=== PATIENT | male | born 2000 | race Caucasian/White ===

== ENCOUNTER → 2022-02-25 | Outpatient (REF) | payer SELFPAY ==
[2022-03-02 16:08] LABS: Endomysial Antibody IgA Negative (Negative)
[2022-03-03 09:26] LABS: Immunoglobulin A 128 mg/dL (90-386); t-Transglutaminase IgA <2 U/mL (0-3)
== END | disposition home or self-care (01) ==
LOC: LABSPEC 15:49
PROVIDERS: Referring Provider Nurse Practitioner Family; Visit Provider Nurse Practitioner Family
DX: R21 Rash and other nonspecific skin eruption (principal); R10.9 Unspecified abdominal pain
CPT/HCPCS: 82784; 83516; 86255

== ENCOUNTER → 2024-08-01 | Outpatient (CLI) | payer BC, SELFPAY ==
--- OUTSIDE RECORDS SUMMARY | 2024-08-01 12:39 | XMS RPT_ITS | CCD ---
Author Organization [facility] Care Team Providers Care Nuclear Medicine Chief Technologist Name Role Phone Unavailable Primary Care Provider Kyra Gama MD Primary Care Provider LINGANNA, SIVA W Referring Unavailable LINGANNA, SIVA W Referring Unavailable LINGANNA, SIVA W Referring Unavailable LINGANNA, SIVA W Referring Unavailable LINGANNA, SIVA W Referring Unavailable LINGANNA, SIVA W Referring Unavailable LEVI MILES Attending Unavailable KALKA, CODI Attending Unavailable KALKA, CODI Referring Unavailable LINGANNA, SIVA W Referring Unavailable DAVIDAND MARY Admitting Unavailable MARY NOEL Attending Unavailable KALKA, CODI Attending Unavailable MENDOZA, KYRA A Primary Care Unavailable LINGANNA, SIVA W Referring Unavailable MENDOZA, KYRA A Primary Care Unavailable LINGANNA, SIVA W Referring Unavailable MENDOZA, KYRA A Primary Care Unavailable SELF Referring Unavailable LINGANNA, SIVA W Attending Unavailable LINGANNA, SIVA W Referring Unavailable MENDOZA, KYRA A Primary Care Unavailable LINGANNA, SIVA W Attending Unavailable URI MOY Attending Unavailable KALKA, CODI SOL Referring Unavailable MENDOZA, KYRA A Primary Care Unavailable Allergies Allergy Classification Reported Allergen(s) Allergy Type Date of Onset Reaction(s) Facility (17 sources) cefdinir; Translations: [CEFDINIR] Drug Allergy 03-29-2021 Unknown, Anaphylaxis [facility] Medications Current Medications Medication Drug Class(es) Dates Sig (Normalized) Sig (Original) fluticasone propionate 0.05 mg/actuat metered dose nasal spray (15 sources) Corticosteroid Start: 04-18-2019 fluticasone (FLONASE) 50 mcg/actuation nasal spray 04/18/2019 Active iv contrast (will be provided with radiology test) (2 sources) Start: 07-13-2024 End: 07-14-2024 iv contrast (will be provided with radiology test) Indications: PSC (primary sclerosing cholangitis) MRI PANC/EPIFANIO Inject, intravenously, once for 1 dose. No IV access, insert saline lock prior to the beginning of sedation, infusion, injection of imaging exam. Discontinue saline lock post exam. If Pt. has a central line or IVAD, may access for administration according to line specific nursing protocol. Once exam is complete flush line and de-access according to line specific nursing protocol in the MR contrast administration guidelines link. 1 Each 07/13/2024 07/14/2024 Active Start: 11-18-2023 End: 11-19-2023 iv contrast (will be provide d with radiology test) Indications: Abnormal results of liver function studies MRI PANC/EPIFANIO Inject, intravenously, once for 1 dose. No IV access, insert saline lock prior to the beginning of sedation, infusion, injection of imaging exam. Discontinue saline lock post exam. If Pt. has a central line or IVAD, may access for administration according to line specific nursing protocol. Once exam is complete flush line and de-access according to line specific nursing protocol in the MR contrast administration guidelines link. 1 Each 0 11/18/2023 11/19/2023 Active Comment on above: MRI PANC/EPIFANIO Inject, intravenously, once for 1 dose. No IV access, insert saline lock prior to the beginning of sedation, infusion, injection of imaging exam. Discontinue saline lock post exam. If Pt. has a central line or IVAD, may access for administration according to line specific nursing protocol. Once exam is complete flush line and de-access according to line specific nursing protocol in the MR contrast administration guidelines link. lactobacillus comb no.10 (PROBIOTIC) 20 billion cell cap (1 source) lactobacillus co mb no.10 (PROBIOTIC) 20 billion cell cap Take by mouth. Active mesalamine 1200 mg delayed release oral tablet (7 sources) Aminosalicylate Start: 024 End: 025 take 4 tablets by mouth once daily at mealtime Mesalamine (LIALDA) 1.2 gram EC tablet Indications: 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) Take 4 tablets by mouth once daily. Take with food. Do not cut tablet. 360 tablet 2 02/06/2024 11/02/2024 Active vvjcgihl67/iron/folat e8/ps-dha (ENBRACE HR ORAL) (1 source) Start: ibrwwciv15/iron/kalani te8/ps-dha (ENBRACE HR ORAL) 07/02/2024 Active polyethylene glycol 3350 936320 mg / potassium chloride 2970 mg / sodium bicarbonate 6740 mg / sodium chloride 5860 mg / sodium sulfate 24498 mg powder for oral solution (1 source) Osmotic Laxative Start: End: peg 3350-Electrolytes (GOLYTELY) 236-22.74-6.74 -5.86 gram suspension Indications: PSC (primary sclerosing cholangitis) Take 4,000 mL by mouth one time only for 1 dose. Refer to printed prep instructions from your provider. 4000 mL 0 01/25/2024 01/25/2024 Active Completed/Discontinued Medications Medication Drug Class(es) Dates Sig (Normalized) Sig (Original) calcium chloride 0.0014 meq/ml / potassium chloride 0.004 meq/ml / sodium chloride 0.103 meq/ml / sodium lactate 0.028 meq/ml injectable solution (1 source) Start: 02-02-2024 End: 02-02-2024 lactated ringers iv infusion cetirizine hydrochloride 1 mg/ml oral solution (16 sources) Histamine-1 Receptor Antagonist Start: 12-20-2012 End: 06-21-2024 cetirizine (ZYRTEC) 1 mg/mL syrup Take by mouth. 12/20/2012 06/21/2024 Discontinued End: 06-21-2024 Cetirizine (ZYRTEC) 10 mg ca p 06/21/2024 Discontinued Comment on above: Take by mouth. diphenhydrAMINE (1 source) Histamine-1 Receptor Antagonist Start: 02-02-2024 End: 02-02-2024 diphenhydrAMINE 12.5-50 mg injection (BENADRYL) 1 ml fentaNYL 0.05 mg/ml injection (1 source) Opioid Agonist Start: 02-02-2024 End: 02-02-2024 fentaNYL 50 mcg/mL 25-100 mcg injection (SUBLIMAZE) ibuprofen 200 mg oral capsule (8 sources) Nonsteroidal Anti-inflammatory Drug End: 02-06-2024 Ibuprofen 200 mg cap Take by mouth. 02/06/2024 Discontinued Comment on above: Take by mouth. melatonin 5 mg oral capsule (8 sources) End: 02-06-2024 Melatonin 5 mg cap Take 5 mg by mouth. 02/06/2024 Discontinued Comment on above: Take 5 mg by mouth. 5 ml midazolam 1 mg/ml injection (1 source) Benzodiazepine Start: 02-02-2024 End: 02-02-2024 midazolam (PF) 1-5 mg injection (VERSED) montelukast 10 mg oral tablet (8 sources) Leukotriene Receptor Antagonist Start: 06-21-2019 End: 02-06-2024 montelukast (SINGULAIR) 10 mg tablet 06/21/2019 02/06/2024 Discontinued triamcinolone acetonide 0.055 mg/actuat metered dose nasal spray (8 sources) Corticosteroid End: 02-06-2024 triamcinolone acetonide (NASACORT AQ) 55 mcg nasal inhaler Use in the nose. 02/06/2024 Discontinued Comment on above: Use in the nose. Problems Active Problems Problem Classification Problem Date Documented Da te Episodic/Chronic Biliary tract disease (19 sources) Primary sclerosing cholangitis; Translations: [Primary sclerosing cholangitis] Onset: 01-06-2024 01-25-2024 Chronic Miscellaneous mental health disorders (1 source) Anxiety about body function or health; Translations: [Other symptoms and signs involving emotional state] 06-21-2024 Episodic Other gastrointestinal disorders (3 sources) Abdominal bloating; Translations: [Abdominal distension (gaseous)] Onset: 07-25-2024 06-21-2024 Episodic Other gastrointestinal disorders (1 source) Abdominal distension (gaseous); Translations: [Postprandial bloating] Onset: 07-25-2024 Episodic Regional enteritis and ulcerative colitis (10 sources) Ulcerative colitis; Translations: [Ulcerative colitis, unspecified with unspecified complications] Onset: 02-08-2024 02-04-2024 Chronic Past or Other Problems Problem Classification Problem Date Documented Da te Episodic/Chronic Gastrointestinal hemorrhage (1 source) Melena; Translations: [Hematochezia] Onset: 01-06-2024 Episodic Other screening for suspected conditions (not mental disorders or infectious disease) (20 sources) Liver function tests abnormal; Translations: [Abnormal results of liver function studies] Onset: 11-18-2023 11-18-2023 Episodic Results Test Name Value Interpretation Reference Range Facility ANES POSTPROC EVALon 024 ANES POSTPROC EVAL HNO ID: [id number] Author: JOSE DWYER MD Service: Anesthesiology Author Type: Anesthesiologist Type: Anesthesia Postprocedure Evaluation Filed: 07/25/2024 10:56 Note Text: POST ANESTHESIA EVALUATION NOTE : 2002 Procedure Summary Date: 07/25/24 Room / Location: [facility] Anesthesia Start: 818 Anesthesia Stop: 904 Procedures: COLONOSCOPY DIAGNOSTIC EGD DIAGNOSTIC Diagnosis: 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) Postprandial bloating Scheduled Providers: Uri Moy MD Responsible Provider: Jose Dwyer MD Anesthesia Type: MAC ASA Status: 2 Anesthesia Type: MAC Last Vitals Vitals Value Taken Time BP 117/82 07/25/24 0926 Temp 36.5 ?C (97.7 ?F) 07/25/24 0901 HR SpO2 67 07/25/24 0926 Resp 16 07/25/24 0926 SpO2 100 % 07/25/24925 Vitals shown include unfiled device data. Post Anesthesia Patient Status Patient Evaluation: PACU. PACU/ICU Patient Condition: stable. Anticipated Disposition: phase 2 then home. Neurological Status: aware and responsive. Pulmonary Status: breathing comfortably on room air Airway Control: returned to baseline unsupported. Cardiovascular Status: stable. Pain Management: clinically adequate Postoperative Hydration: acceptable. Intraoperative Events: no significant anesthesia events Recommendation: continue current plan of care. Anesthesia Observations No Documentation SIGNATURE: Jose Dwyer MD PATIENT NAME: Ayaz Lopez DATE: July 25, 2024 TIME: 10:56 AM CSN: [id number] [facility] ANES PRE-OPon 07-25-2024 ANES PRE-OP HNO ID: [id number] Author: JOSE DWYER MD Service: Anesthesiology Author Type: Anesthesiologist Type: Anesthesia Preprocedure Evaluation Filed: 07/25/2024 07:32 Note Text: ANESTHESIOLOGY DAY OF SURGERY NOTE : 2002 Procedure Information Date/Time: 07/25/24 0800 Scheduled providers: Uri Moy MD Procedures: COLONOSCOPY DIAGNOSTIC EGD DIAGNOSTIC Location: [facility] Estimated body mass index is 22.3 kg/m? as calculated from the following: Height as of this encounter: 185.4 cm (6' 1 ). Weight as of this encounter: 76.7 kg (169 lb). Most recent hematocrit and potassium results: Hematocrit 44.3 06/23/2024 Potassium 4.1 06/23/2024 Relevant Problems No relevant active problems #UC I - PHYSICAL EVALUATION AIRWAY Patient intubated: No. Tracheostomy tube not present Mallampati: I. TM distance: >3 FB. Neck ROM: full ROM without neurological symptoms. Mouth opening: adequate. Short neck: no. Thick neck: no DENTAL Dental findings: teeth intact. II - ANESTHESIA PLAN ASA Score: 2 Anesthetic Plan: MAC NPO Status: adequate Beta Loyd Monitoring Plan Monitoring plan: standard ASA. Post Procedure Analgesic Plan Postoperative analgesic plan: multimodal analgesia. Informed Consent Anesthetic risks, benefits, alternatives, personnel and consent discussed: yes. Patient / Responsible Democrat agrees to proceed: yes Patient / Surrogate agrees to blood products: blood products not planned Vitals Value Taken Time BP 129/84 07/25/24721 Pulse 57 07/25/24721 Resp 16 07/25/24721 Temp 36.4 ?C (97.5 ?F) 07/25/24721 SpO2 97 % 07/25/24721 Outpatient Medications as of 07/25/2024 Medication Sig zbqoiapl30/iron/folate8/ps- dha (ENBRACE HR ORAL) lactobacillus comb no.10 (PROBIOTIC) 20 billion cell cap Take by mouth. Mesalamine (LIALDA) 1.2 gram EC tablet Take 4 tablets by mouth once daily. Take with food. Do not cut tablet. fluticasone (FLONASE) 50 mcg/actuation nasal spray No current facility-administered medications on file as of 07/25/2024. I have interviewed and examined the patient. I have reviewed the medical record and/or the pre-anesthesia evaluation, pertinent labs, and test results. This contains updated information obtained within 48 hours of Surgery/Procedure. SIGNATURE: Jose Dwyer MD PATIENT NAME: Ayaz Lopez DATE: July 25, 2024 TIME: 7:32 AM CSN: [id number] Normal [facility] HISTORY PHYSICALon HISTORY PHYSICAL HNO ID: [id number] Author: URI MOY MD Service: Gastroenterology Author Type: Physician Type: H&P Filed: 07/25/2024 08:17 Note Text: Endoscopy pre-operative HANDP HANDP completed prior to the start time of the procedure. IMPRESSION AND PLAN HPI: This is a 23 year old male. For EGD and colonoscopy. Pertinent Review of Systems: GI: See HPI All other reviewed and negative other than HPI. PAST MEDICAL HISTORY: PAST MEDICAL HISTORY Diagnosis Date Allergy PSC (primary sclerosing cholangitis) Ulcerative colitis (HCC) PAST SURGICAL HISTORY: PAST SURGICAL HISTORY Procedure Laterality Date ADENOIDECTOMY HX COLONOSCOPY SCREENING 02/02/2024 LIVER BIOPSY 12/05/2023 OBJECTIVE: PHYSICAL EXAM: VITALS: BP 129/84 Pulse (!) 57 Temp 36.4 ?C (97.5 ?F) (Temporal Artery) Resp 16 Ht 185.4 cm (6' 1 ) Wt 76.7 kg (169 lb) SpO2 97% BMI 22.30 kg/m? General appearance: AANDOx3 Respiratory: Normal chest expansion. No audible wheezes. CVS: No shortness of breath, no extremity edema. Regular pulse. Plan: OK to proceed with endoscopy. SIGNATURE: Uri Medina MD PATIENT NAME: Ayaz Lopez Normal [facility] HISTORY PHYSICAL HNO ID: [id number] Author: JERE VALDEZ APRN.CNP Service: Anesthesiology Author Type: Nurse Practitioner Type: H&P Filed: 07/25/2024 07:41 Note Text: HISTORY AND PHYSICAL EXAMINATION SERVICE DATE: 07/25/2024 SERVICE TIME: 7:20 AM PRIMARY CARE PHYSICIAN: Kyra Mendoza MD REASON FOR VISIT: The reason for this visit is To perform a comprehensive review of the patients past medical history, assess their current health status and obtain any additional testing required based on anesthesia guidelines. To assess and identify potential anesthesia problems, particularly those that may suggest potential complications or contraindications to the planned procedure. The patient has the following: ACTIVE PROBLEM LIST Abnormal Liver Function Tests Psc (Primary Sclerosing Cholangitis) Pre-Op Examination Ulcerative (Chronic) Pancolitis With Rectal Bleeding (Hcc) Postprandial Bloating Subjective CHIEF COMPLAINT: Preoperative Examination HPI: Patient present to [facility] for the above procedure. Patient here for routine Upper GI Endoscopy screening and Colonoscopy screening. Patient reports he has ulcerative pancolitis confirmed by last colonoscopy done on 02/2024. Patient denies any N/V/D or constipation. Denies any abdominal pain. Reports occasional blood in the stool. Patient denies any other problems at this time. Denies any family history of Colon cancer or other Gastric ca. Patient agreed to planned procedure. METS: Run a short distance (8.00 METs) Patient denies any CP/SOB with above activity. PAST MEDICAL HISTORY Diagnosis Date Allergy PSC (primary sclerosing cholangitis) Ulcerative colitis (HCC) PAST SURGICAL HISTORY Procedure Laterality Date ADENOIDECTOMY HX COLONOSCOPY SCREENING 02/02/2024 LIVER BIOPSY 12/05/2023 FAMILY HISTORY Problem Relation Age of Onset Diabetes Maternal Grandmother Diabetes Paternal Grandmother Stroke Paternal Grandmother Colon Cancer No Family History SOCIAL HISTORY: Social History Tobacco Use Smoking status: Never Smokeless tobacco: Never Vaping Use Vaping status: Never Used Substance Use Topics Alcohol use: Never Drug use: Never Prior to Admission medications as of 07/25/24 0722 Medication Sig Last Dose Taking kopfvgnk20/iron/folate8/ps- dha (ENBRACE HR ORAL) 07/20/2024 Yes lactobacillus comb no.10 (PROBIOTIC) 20 billion cell cap Take by mouth. Yes Mesalamine (LIALDA) 1.2 gram EC tablet Take 4 tablets by mouth once daily. Take with food. Do not cut tablet. 07/24/2024 Yes fluticasone (FLONASE) 50 mcg/actuation nasal spray Yes No medication comments found. ALLERGIES Allergen Reactions Omnicef [Cefdinir] Anaphylaxis COMPLETE REVIEW OF SYSTEMS: PAIN ASSESSMENT: Pain Pain Level: 0 Pain Assessment: Assessment Tool: Verbal (Numeric Rating or Visual Analog Scale) General: No weight loss, malaise or fevers. Neuro: No neurological symptoms or problems; no hx of seizure or stroke Respiratory: No history of current cough, wheezing, dyspnea, or recent pneumonia; no hx of asthma, COPD, or RAYMOND Cardiovascular: No history of HTN requiring medication, no history of chest pain, palpitations, CHF, [place], cardiac surgery or stents GI: see HPI : No history of dysuria, frequency or incontinence, stones or chronic kidney disease Endocrine: Negative for Diabetes or thyroid disease Hematology: No history of bleeding or clotting disorder. No history of hematological symptoms or problems. Oncology: No history of oncological symptoms or problems. Psych: No history of psychiatric symptoms or problems. Musculoskeletal: Negative for joint pain or swelling, back pain or muscle pain. Skin: Negative for lesions, rash and itching. Objective PHYSICAL EXAM: MENTAL STATUS: alert, oriented to person, place and time HEENT: Normocephalic/atraumatic, pharynx clear LUNGS: CTA, no wheezing CARDIAC: RRR, no murmur ABDOMEN: Abdomen soft, non-tender, BS normal, No masses or organomegaly EXTREMITIES: 2+ pedal pulses, no pedal edema 07/25/24721 BP: 129/84 Pulse: (!) 57 Resp: 16 Temp: 36.4 ?C (97.5 ?F) TempSrc: Temporal Artery SpO2: 97% Weight: 76.7 kg (169 lb) Height: 185.4 cm (6' 1 ) Body mass index is 22.3 kg/m?. Patient has the following medical conditions which may affect mariana-operative course Problem List Items Addressed This Visit Unprioritized Postprandial bloating Current Assessment AND Plan EGD and colonoscopy today Relevant Orders EGD DIAGNOSTIC Pre-op examination - Primary Current Assessment AND Plan Medical conditions which may affect the perioperative course were address in today's visit. PSC (primary sclerosing cholangitis) Current Assessment AND Plan Reports monitored Ulcerative (chronic) pancolitis with rectal bleeding (HCC) Current Assessment AND Plan Colonoscopy and EGD today Diagnosis: 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) [K51.011] Postpr (more content not included)... Normal [facility] OPERATIVE NOon 07-25-2024 OPERATIVE NO HNO ID: [id number] Author: URI MOY MD Service: Gastroenterology Author Type: Physician Type: Operative Report Filed: 07/25/2024 09:06 Note Text: OPERATIVE/PROCEDURE REPORT LOG ID: [id number] Surgery/Procedure Date: 07/25/2024 Incision/Procedure Start Time: Incision Close/Procedure End Time: 8:55 AM Surgeon(s)/Proceduralist(s) and [employer] Supervisor(s): Uri Medina MD Procedure(s): Esophagogastroduodenoscopy (EGD) with biopsy Colonoscopy with biopsy Anesthesia: Monitored Anesthesia Care Brief History: 23 yo Male with h/o ulcerative pancolitis, PSC and bloating, (+) genes for celiac disesae. Not eating gluten free at present time. Procedure Details: The patient was placed in the left lateral decubitus position. A bite block was placed and medications administered as above. The Olympus gastroscope was used to intubate the oropharynx and esophagus with ease. We proceeded down to the second part of the duodenum. The duodenal mucosa and bulb appeared normal. Biopsies were taken to rule out celiac disease (Jar 1). We then withdrew into the stomach and visualized a normal antrum and body. Retroflexion was performed and this showed a normal fundus and cardia. The squamocolumnar junction, GE junction and esophagus appeared normal. The Z-line was at 44 cm. The scope was then withdrawn and the patient tolerated the procedure well. The patient was then turned around for the colonoscopy. A digital rectal exam was performed and this was normal. The Olympus colonoscope was introduced into the rectum and advanced to the terminal ileum. The procedure was not technically difficult. The cecum was identified by the appendiceal orifice and the ileocecal valve. The bowel preparation was good and the total withdrawal time was 9 minutes. The terminal ileum was normal for 15 cm . The scope was then slowly withdrawn and the mucosal folds examined in detail. There were no abnormalities in the cecum, ascending colon, transverse colon, descending colon, sigmoid or rectum. Surveillance biopsies were taken in the cecum/ascending colon (Jar 2), transverse colon (Jar 3), descending colon (Jar 4), and sigmoid colon and rectum (Jar 5). Retroflexion was performed and this showed normal retroflexion. Visually there was no inflammation, loss of vascular pattern, bleeding or ulceration. UCEIS = 0. The scope was then withdrawn and the patient tolerated the procedure well. Pre-Op/Pre-Procedure Diagnosis: 1) NUVIA pancolitis with PSC 2) Bloating 3) (+) genes for celiac disease Post-Op/Post-Procedure Diagnosis: 1) Normal gastroscopy. Duodenal bx 2) Normal terminal ileum 3) Normal entire colon, bx taken from Cecum/ascending colon, transverse colon, descending colon, sigmoid/rectum. Specimens: See above EBL: Minimal Complications: None Recommendations: Follow up pathology Repeat colonoscopy 1-2 years depending upon clinical course I/primary surgeon/proceduralist performed the entire procedure. Uri Medina MD SIGNATURE:Uri Medina MD PATIENT NAME: Ayaz Lopez DATE: July 25, 2024 TIME: 8:58 AM PAGER/CONTACT #: [phone] [facility] SURGICAL PATHOLOGYon 07-25-2 024 CASE REPORT [facility] Comment on above: Order Comment: Speci men Type: TISSUE SPECIMEN Ordering Facility: [facility] Address: [address] [place] [address] Result Comment: Surg ica Pathology Report Case: [id number] Authorizing Provider: Uri Moy MD Collected: 07/25/2024 08:36 AM Ordering Location: [facility] Received: 07/25/2024 03:37 PM Pathologist: Светлана Lorenz MD Specimens: A) - Small Bowel, Duodenum, Biopsy, R/O CELIAC DISEASE B) - Colon, Cecum, Biopsy, CECUM/ASCENDING COLON BIOPSY R/OIBD, R/O DYSPLASIA C) - Colon, Transverse, Biopsy, R/OIBD, R/O DYSPLASIA D) - Colon, Descending, Biopsy, R/OIBD, R/O DYSPLASIA E) - Colon, Sigmoid, Biopsy, SIGMOID COLON/RECTUM BIOPSY R/O IBD, R/O DYSPLASIA Performed By: #### S #### [facility] CLIA [id number] [address] DIAGNOSIS COMMENT The duodenal mucosa does not demonstrate features compatible with a malabsorption syndrome. Normal [facility] Comment on above: Order Comment: Speci men Type: TISSUE SPECIMEN Ordering Facility: [facility] Address: [address] [place] [address] Performed By: #### S #### [facility] CLIA [id number] [address] FINAL DIAGNOSIS Normal [facility] Comment on above: Order Comment: Saji albarran Type: TISSUE SPECIMEN Ordering Facility: [facility] Address: [address] [place] [address] Result Comment: Celeste villalba, biopsies: - Mild nonspecific chronic duodenitis. Architecturally normal villi, negative for lymphocytosis. See comment. B. Cecum, biopsies: - Quiescent colitis. Negative for dysplasia. C. Transverse colon, biopsies: - Quiescent colitis. Negative for dysplasia. D. Descending colon, biopsies: - Chronic active colitis with mild acute inflammatory activity. Negative for dysplasia E. Sigmoid colon, biopsies: - Quiescent colitis. Negative for dysplasia. Performed By: #### S #### [facility] CLIA [id number] [address] FINAL PERFORMING LAB Normal [facility] Comment on above: Order Comment: Speci men Type: TISSUE SPECIMEN Ordering Facility: [facility] Address: [address] [place] [address] Result Comment: Diag nostic interpretation performed at [facility], [address] [place] [address] CLIA# [id number] Shorthand Teacher: Kyra Houston M.D. Performed By: #### S #### [facility] CLIA [id number] [address] GROSS DESCRIPTION Normal [facility] Comment on above: Order Comment: Criseldai men Type: TISSUE SPECIMEN Ordering Facility: [facility] Address: [address] [place] [address] Result Comment: A. S mall Bowel, Duodenum, Biopsy Received in formalin labeled small bowel duodenum biopsy is a irregular ordoñez soft tissue fragment measuring 0.2 x 0.2 x 0.2 cm. The specimen is submitted entirely in A1. B. Colon, Cecum, Biopsy Received in formalin labeled cecum colon biopsy are multiple irregular ordoñez soft tissue fragments aggregating to 1.2 x 0.3 x 0.2 cm. The specimen is submitted entirely in B1. C. Colon, Transverse, Biopsy Received in formalin transverse colon biopsy are multiple irregular ordoñez soft tissue fragments aggregating to 1.3 x 0.4 x 0.2 cm. The specimen is submitted entirely in C1. D. Colon, Descending, Biopsy Received in formalin labeled descending colon biopsy are multiple irregular ordoñez soft tissue fragments aggregating to 1.2 x 0.6 x 0.2 cm. The specimen is submitted entirely in B1. E. Colon, Sigmoid, Biopsy Received in formalin labeled sigmoid colon biopsy are multiple irregular ordoñez soft tissue fragments aggregating to 1 x 0.5 x 0.2 cm. The specimen is submitted entirely in E1. Gross examination performed at [facility], [address] [place] [id number] [facility] July 26, 2024 12:18 PM Performed By: #### S #### [facility] CLIA [id number] [address] [place], [place] [id number] [place] Cancer Ag19-9 SerPl-aCncon 1 Cancer Ag 19-9 Qn 3.0 [arb'U]/mL Normal <36.0 [facility] Comment on above: Order Comment: Speci men Type: BLOOD SPECIMENOrdering Facility: [facility] Address: [address] [place] [address] Result Comment: [facility] er antigen 19-9 test is used as an aid in monitoring response to treatment or recurrence in patients with established pancreatic, hepatobiliary, or gastrointestinal malignancies. Clinical correlation is required. The CA 19-9 Antigen test was performed using the [employer] [place] [employer] DXI paramagnetic particle chemiluminescent immunoassay method. Results obtained with different assay methods or kits cannot be used interchangeably. Performed By: #### 2 4108-3 ####[facility] LABCLIA [id number] [address] [place] MR Biliary ducts and Pancrea tic duct WO and W contrast Joanne 07-11-2024 IMPRESSION: Persistent but improved mild central biliary ductal dilatation with focal narrowing of left hepatic duct and peripheral left biliary beading. Persistent but improved right peribiliary hyperenhancement. Normal liver morphology. No hepatic lesion. I agree that this report by the resident or fellow represents my interpretation of the study. Neighborhood Coordinator: PSCB Transcribe Date/Time: Jul 11 2024 9:52A Dictated by : DAVID MENA MD This examination was interpreted and the report reviewed and electronically signed by: JOSE LUGO MD on Jul 11 2024 11:54AM [facility] DIVISION OF RADIOLOGY * * *Final Report* * * DATE OF EXAM: Jul 11 2024 9:15AM [facility] 0730 - MRI PANC/EPIFANIO WO/W IVCON / PROCEDURE REASON: Cholangitis * * * * Physician Interpretation * * * * MRI OF THE ABDOMEN (PANCREAS-BILIARY) WITHOUT AND WITH IV CONTRAST HISTORY: Suspected cholangitis. TECHNIQUE: Magnet: 1.5T scanner. Multiplanar MRI of the abdomen with multiple sequences, performed before and after intravenous contrast. Contrast: IV: 15 ml of Dotarem COMPARISON: MR pancreatic biliary 12/05/2023.. RESULT: Liver: Normal morphology. No hepatic steatosis. No focal hepatic mass Biliary: * Redemonstration of mild central biliary ductal dilatation with focal narrowing of the left hepatic ducts near the confluence (9:19), improved since prior. * Mild beading of left peripheral hepatic duct (14:26), similar to prior. * Persistent, however improved subtle right peribiliary hyperenhancement (25:42, 25:42, 25:29) * Common bile duct appears unremarkable with no focal strictures with distal tapering. Spleen: No mass. No splenomegaly. Pancreas: No mass or duct dilation. Adrenals: No mass. Kidneys: No solid or cystic mass. No hydronephrosis. GI tract: No dilation or wall thickening in the visualized bowel. Lymph nodes: No lymphadenopathy. Mesentery/Peritoneum: No ascites. No mass. Vasculature: The celiac axis and SMA are patent. The portal vein and branches, splenic vein, SMV, and hepatic veins are patent. Bones/Soft Tissues: No significant finding. Lower thorax: Unremarkable. DIVISION OF RADIOLOGY Provider, [facility] - 07/11/2024 * * *Final Report* * * DATE OF EXAM: Jul 11 2024 9:15AM [facility] 0730 - MRI PANC/EPIFANIO WO/W IVCON / PROCEDURE REASON: Cholangitis * * * * Physician Interpretation * * * * MRI OF THE ABDOMEN (PANCREAS-BILIARY) WITHOUT AND WITH IV CONTRAST HISTORY: Suspected cholangitis. TECHNIQUE: Magnet: 1.5T scanner. Multiplanar MRI of the abdomen with multiple sequences, performed before and after intravenous contrast. Contrast: IV: 15 ml of Dotarem COMPARISON: MR pancreatic biliary 12/05/2023.. RESULT: Liver: Normal morphology. No hepatic steatosis. No focal hepatic mass Biliary: * Redemonstration of mild central biliary ductal dilatation with focal narrowing of the left hepatic ducts near the confluence (9:19), improved since prior. * Mild beading of left peripheral hepatic duct (14:26), similar to prior. * Persistent, however improved subtle right peribiliary hyperenhancement (25:42, 25:42, 25:29) * Common bile duct appears unremarkable with no focal strictures with distal tapering. Spleen: No mass. No splenomegaly. Pancreas: No mass or duct dilation. Adrenals: No mass. Kidneys: No solid or cystic mass. No hydronephrosis. GI tract: No dilation or wall thickening in the visualized bowel. Lymph nodes: No lymphadenopathy. Mesentery/Peritoneum: No ascites. No mass. Vasculature: The celiac axis and SMA are patent. The portal vein and branches, splenic vein, SMV, and hepatic veins are patent. Bones/Soft Tissues: No significant finding. Lower thorax: Unremarkable. IMPRESSION IMPRESSION: Persistent but improved mild central biliary ductal dilatation with focal narrowing of left hepatic duct and peripheral left biliary beading. Persistent but improved right peribiliary hyperenhancement. Normal liver morphology. No hepatic lesion. I agree that this report by the resident or fellow represents my interpretation of the study. Neighborhood Coordinator: PSCB Transcribe Date/Time: Jul 11 2024 9:52A Dictated by : DAVID MENA MD This examination was interpreted and the report reviewed and electronically signed by: JOSE LUGO MD on Jul 11 2024 11:54AM EST [facility] Radiology Study observation (narrative) [facility] MR Biliary ducts and Pancrea tic duct WO and W contrast IVOrdered By: [facility] Provider on 07-11-2024 [facility] MRI PANC/EPIFANIO WO/W IVCONon MRI PANC/EPIFANIO WO/W IVCON * * *Final Report* * * DATE OF EXAM: Jul 11 2024 9:15AM [facility] 0730 - MRI PANC/EPIFANIO WO/W IVCON / PROCEDURE REASON: Cholangitis * * * * Physician Interpretation * * * * MRI OF THE ABDOMEN (PANCREAS-BILIARY) WITHOUT AND WITH IV CONTRAST HISTORY: Suspected cholangitis. TECHNIQUE: Magnet: 1.5T scanner. Multiplanar MRI of the abdomen with multiple sequences, performed before and after intravenous contrast. Contrast: IV: 15 ml of Dotarem COMPARISON: MR pancreatic biliary 12/05/2023.. RESULT: Liver: Normal morphology. No hepatic steatosis. No focal hepatic mass Biliary: * Redemonstration of mild central biliary ductal dilatation with focal narrowing of the left hepatic ducts near the confluence (9:19), improved since prior. * Mild beading of left peripheral hepatic duct (14:26), similar to prior. * Persistent, however improved subtle right peribiliary hyperenhancement (25:42, 25:42, 25:29) * Common bile duct appears unremarkable with no focal strictures with distal tapering. Spleen: No mass. No splenomegaly. Pancreas: No mass or duct dilation. Adrenals: No mass. Kidneys: No solid or cystic mass. No hydronephrosis. GI tract: No dilation or wall thickening in the visualized bowel. Lymph nodes: No lymphadenopathy. Mesentery/Peritoneum: No ascites. No mass. Vasculature: The celiac axis and SMA are patent. The portal vein and branches, splenic vein, SMV, and hepatic veins are patent. Bones/Soft Tissues: No significant finding. Lower thorax: Unremarkable. IMPRESSION: Persistent but improved mild central biliary ductal dilatation with focal narrowing of left hepatic duct and peripheral left biliary beading. Persistent but improved right peribiliary hyperenhancement. Normal liver morphology. No hepatic lesion. I agree that this report by the resident or fellow represents my interpretation of the study. Neighborhood Coordinator: HIRO Transcribe Date/Time: Jul 11 2024 9:52A Dictated by : DAVID MENA MD This examination was interpreted and the report reviewed and electronically signed by: JOSE LUGO MD on Jul 11 2024 11:54AM EST [id number] Normal [facility] Calprotectin (Stl) [Mass/Mas s]on 06-26-2024 CALPROTECTIN, FECAL INTERP Normal Normal Normal [facility] Comment on above: Order Comment: Speci men Type: STOOL SPECIMEN [facility] Address: [address] [place] [address] Result Comment: Inte rpretation: <50.0 ug/g: Normal 50.0 ug/g - 120.0 ug/g: Borderline elevated. Re-evaluation in 4-6 weeks is recommended if clinically indicated. >120.0 ug/g: Elevated Performed By: #### P ANCEF, 17090-7 #### [facility] CLIA [id number] [address] [place] [address] [place] CALPROTECTIN, FECAL QUANTITATIVE 14.3 ug/g Normal <50 [facility] Comment on above: Order Comment: Speci men Type: STOOL SPECIMEN [facility] Address: [address] [place] [address] Performed By: #### P ANCEF, 56629-0 #### [facility] CLIA [id number] [address] [place] [address] [place] PANC ELASTASE, FECALon 06-26 ELASTASE INTERPRETATION Normal Normal Normal [facility] Comment on above: Order Comment: Speci men Type: STOOL SPECIMEN [facility] Address: [address] [place] [address] Performed By: #### P ANCEF, 41367-8 #### [facility] CLIA [id number] [address] [place] [address] [place] ELASTASE-1 CONCENTRATION 723 ug/g Normal >=200 [facility] Comment on above: Order Comment: Speci men Type: STOOL SPECIMEN [facility] Address: [address] [place] [address] Result Comment: Inte rpretation: <100 ug/g: Severe Exocrine Pancreatic Insufficiency 100-199 ug/g: Mild to Moderate Exocrine Pancreatic Insufficiency >=200 ug/g: Normal Performed By: #### P ANCEF, 65683-9 #### [facility] CLIA [id number] [address] [place] [address] [place] Basic metabolic 2000 panelon 06-23-2024 Anion gap [Moles/Vol] 11 mmol/L Normal 8-15 [facility] Comment on above: Order Comment: Speci men Type: BLOOD SPECIMENOrdering Facility: [facility] Address: [address] [place] [address] Performed By: #### 2 4325-3, 12047-1 ####[facility] LABCLIA [id number] [place] [address] [place] Calcium [Mass/Vol] 9.9 mg/dL Normal 8.5-10.2 [facility] Comment on above: Order Comment: Speci men Type: BLOOD SPECIMENOrdering Facility: [facility] Address: [address] [place], [place] [address] Performed By: #### 2 4324-3, 99481-0 ####[facility] LABCLIA [id number] [place] [address] [place] Chloride [Moles/Vol] 103 mmol/L Normal 98-107 [facility] Comment on above: Order Comment: Speci men Type: BLOOD SPECIMENOrdering Facility: [facility] Address: [address] [place] [address] Performed By: #### 2 3, 35251-3 ####[facility] LABCLIA [id number] [place] [address] [place] CO2 [Moles/Vol] 26 mmol/L Normal 22-30 [facility] Comment on above: Order Comment: Speci men Type: BLOOD SPECIMENOrdering Facility: [facility] Address: [address] [place], [place] [address] Performed By: #### 2 4324-3, 85878-6 ####[facility] LABCLIA [id number] [facility] [place] [id number] [place] Creatinine [Mass/Vol] 0.77 mg/dL Normal 0.73-1.22 [facility] Comment on above: Order Comment: Speci men Type: BLOOD SPECIMENOrdering Facility: [facility] Address: [address] [place], [place] [address] Performed By: #### 2 5-3, 73137-9 ####[facility] LABCLIA [id number] [place] [address] [place] Creatinine and Glomerular filtration rate.predicted panel (S/P/Bld) 131 mL/min/1.73m??? Normal >=60 [facility] Comment on above: Order Comment: Saji albarran Type: BLOOD SPECIMENOrdering Facility: [facility] Address: [address] [place] [address] Result Comment: Angela mated Glomerular Filtration Rate (eGFR) is calculated using the 2020 CKD-EPI creatinine equation. This equation utilizes serum creatinine, sex, and age as parameters. The creatinine assay has traceable calibration to isotope dilution-mass spectrometry. Refer to KDIGO guidelines for clinical interpretation. In patients with unstable renal function, e.g. those with acute kidney injury, the eGFR may not accurately reflect actual GFR. Performed By: #### 2 4325-3, 56120-0 ####[facility] LABCLIA [id number] [place] [address] [place] Glucose [Mass/Vol] 94 mg/dL Normal 74-99 [facility] Comment on above: Order Comment: Saji albarran Type: BLOOD SPECIMENOrdering Facility: [facility] Address: [address] [place] [address] Result Comment: The [place] Diabetes [employer] (ADA) provides guidance for cutoff values for fasting glucose and random glucose. The ADA defines fasting as no caloric intake for at least 8 hours. Fasting plasma glucose results between 100 to 125 mg/dL indicate increased risk for diabetes (prediabetes). Fasting plasma glucose results greater than or equal to 126 mg/dL meet the criteria for diagnosis of diabetes. In the absence of unequivocal hyperglycemia, results should be confirmed by repeat testing. In a patient with classic symptoms of hyperglycemia or hyperglycemic crisis, random plasma glucose results greater than or equal to 200 mg/dL meet the criteria for diagnosis of diabetes. Reference: Standards of Medical Care in Diabetes 2016, [place] [employer]. Diabetes Care. 2016.39(Suppl 1). Performed By: #### 2 4325-3, 46487-8 ####[facility] LABCLIA [id number] [place] [address] [place] Potassium [Moles/Vol] 4.1 mmol/L Normal 3.7-5.1 [facility] Comment on above: Order Comment: Speci men Type: BLOOD SPECIMENOrdering Facility: [facility] Address: [address] [place] [address] Performed By: #### 2 4325-3, 75188-7 ####[facility] LABCLIA [id number] [place] [address] [place] Sodium [Moles/Vol] 140 mmol/L Normal 136-144 [facility] Comment on above: Order Comment: Speci men Type: BLOOD SPECIMENOrdering Facility: [facility] Address: [address] [place] [address] Performed By: #### 2 4325-3, 63587-1 ####[facility] LABCLIA [id number] [place] [address] [place] Urea nitrogen [Mass/Vol] 9 mg/dL Normal 9-24 [facility] Comment on above: Order Comment: Speci men Type: BLOOD SPECIMENOrdering Facility: [facility] Address: [address] [place] [address] Performed By: #### 2 4325-3, 72548-1 ####[facility] LABCLIA [id number] [place] [address] [place] CBC W Auto Differential pane l (Bld)on 06-23-2024 Basophils (Bld) [#/Vol] 0.05 10*3/uL Normal <0.11 [facility] Comment on above: Order Comment: Speci men Type: BLOOD SPECIMENOrdering Facility: [facility] Address: [address] [place] [address] Performed By: #### 5 7021-8 ####[facility] LABCLIA [id number] [place] [address] [place] Basophils/100 WBC (Bld) 1.0 % Normal [facility] Comment on above: Order Comment: Speci men Type: BLOOD SPECIMENOrdering Facility: [facility] Address: [address] [place] [address] Performed By: #### 5 7021-8 ####[facility] LABCLIA [id number] [place] [address] [place] Differential cell count method Nom (Bld) Auto Normal [facility] Comment on above: Order Comment: Speci men Type: BLOOD SPECIMENOrdering Facility: [facility] Address: [address] [place] [address] Performed By: #### 5 7021-8 ####[facility] LABCLIA [id number] [place] [address] [place] Eosinophils (Bld) [#/Vol] 0.17 10*3/uL Normal <0.46 [facility] Comment on above: Order Comment: Speci men Type: BLOOD SPECIMENOrdering Facility: [facility] Address: [address] [place] [address] Performed By: #### 5 7021-8 ####[facility] LABIA [id number] [place] [address] [place] Eosinophils/100 WBC (Bld) 3.4 % Normal [facility] Comment on above: Order Comment: Speci men Type: BLOOD SPECIMENOrdering Facility: [facility] Address: [address] [place] [address] Performed By: #### 5 7021-8 ####[facility] LABCLIA [id number] [place] [address] [place] Erythrocyte distribution width (RBC) [Ratio] 12.7 % Normal 11.5-15.0 [facility] Comment on above: Order Comment: Speci men Type: BLOOD SPECIMENOrdering Facility: [facility] Address: [address] [place] [address] Performed By: #### 5 7021-8 ####[facility] LABCLIA [id number] [place] [address] [place] Hematocrit (Bld) [Volume fraction] 44.3 % Normal 39.0-51.0 [facility] Comment on above: Order Comment: Speci men Type: BLOOD SPECIMENOrdering Facility: [facility] Address: [address] [place] [address] Performed By: #### 5 7021-8 ####[facility] LABCLIA [id number] [place] [address] [place] Hemoglobin (Bld) [Mass/Vol] 14.6 g/dL Normal 13.0-17.0 [facility] Comment on above: Order Comment: Speci men Type: BLOOD SPECIMENOrdering Facility: [facility] Address: [address] [place] [address] Performed By: #### 5 7021-8 ####[facility] LABCLIA [id number] [place] [address] [place] Immature granulocytes (Bld) [#/Vol] 10*3/uL Normal <0.10 [facility] Comment on above: Order Comment: Speci men Type: BLOOD SPECIMENOrdering Facility: [facility] Address: [address] [place] [address] Performed By: #### 5 7021-8 ####[facility] LABCLIA [id number] [place] [address] [place] Immature granulocytes/100 WBC (Bld) 0.2 % Normal [facility] Comment on above: Order Comment: Speci men Type: BLOOD SPECIMENOrdering Facility: [facility] Address: [address] [place] [address] Performed By: #### 5 7021-8 ####[facility] LABCLIA [id number] [place] [address] [place] Lymphocytes (Bld) [#/Vol] 1.67 10*3/uL Normal 1.00-4.00 [facility] Comment on above: Order Comment: Speci men Type: BLOOD SPECIMENOrdering Facility: [facility] Address: [address] [place] [address] Performed By: #### 5 7021-8 ####[facility] LABCLIA [id number] [place] [address] [place] Lymphocytes/100 WBC (Bld) 33.9 % Normal [facility] Comment on above: Order Comment: Speci men Type: BLOOD SPECIMENOrdering Facility: [facility] Address: [address] [place] [address] Performed By: #### 5 7021-8 ####[facility] LABCLIA [id number] [place] [address] [place] MCH (RBC) [Entitic mass] 29.0 pg Normal 26.0-34.0 [facility] Comment on above: Order Comment: Speci men Type: BLOOD SPECIMENOrdering Facility: [facility] Address: [address] [place] [address] Performed By: #### 5 7021-8 ####[facility] LABIA [id number] [place] [address] [place] MCHC (RBC) [Mass/Vol] 33.0 g/dL Normal 30.5-36.0 [facility] Comment on above: Order Comment: Speci men Type: BLOOD SPECIMENOrdering Facility: [facility] Address: [address] [place] [address] Performed By: #### 5 7021-8 ####[facility] LABCLIA [id number] [place] [address] [place] MCV (RBC) [Entitic vol] 88.1 fL Normal 80.0-100.0 [facility] Comment on above: Order Comment: Speci men Type: BLOOD SPECIMENOrdering Facility: [facility] Address: [address] [place] [address] Performed By: #### 5 7021-8 ####[facility] LABCLIA [id number] [place] [address] [place] Monocytes (Bld) [#/Vol] 0.49 10*3/uL Normal <0.87 [facility] Comment on above: Order Comment: Speci men Type: BLOOD SPECIMENOrdering Facility: [facility] Address: [address] [place] [address] Performed By: #### 5 7021-8 ####[facility] LABCLIA [id number] [place] [address] [place] Monocytes/100 WBC (Bld) 9.9 % Normal [facility] Comment on above: Order Comment: Speci men Type: BLOOD SPECIMENOrdering Facility: [facility] Address: [address] [place] [address] Performed By: #### 5 7021-8 ####[facility] LABCLIA [id number] [place] [address] [place] Neutrophils (Bld) [#/Vol] 2.54 10*3/uL Normal 1.45-7.50 [facility] Comment on above: Order Comment: Speci men Type: BLOOD SPECIMENOrdering Facility: [facility] Address: [address] [place] [address] Performed By: #### 5 7021-8 ####[facility] LABCLIA [id number] [place] [address] [place] Neutrophils/100 WBC (Bld) 51.6 % Normal [facility] Comment on above: Order Comment: Speci men Type: BLOOD SPECIMENOrdering Facility: [facility] Address: [address] [place] [address] Performed By: #### 5 7021-8 ####[facility] LABCLIA [id number] [place] [address] [place] Nucleated RBC (Bld) [#/Vol] 10*3/uL Normal <0.01 [facility] Comment on above: Order Comment: Speci men Type: BLOOD SPECIMENOrdering Facility: [facility] Address: [address] [place] [address] Performed By: #### 5 7021-8 ####[facility] LABIA [id number] [place], [place] [address] [place] Nucleated RBC/100 WBC (Bld) [Ratio] 0.0 /100 WBC Normal [facility] Comment on above: Order Comment: Speci men Type: BLOOD SPECIMENOrdering Facility: [facility] Address: [address] [place] [address] Performed By: #### 5 7021-8 ####[facility] LABIA [id number] [place] [address] [place] Platelet mean volume (Bld) [Entitic vol] 10.7 fL Normal 9.0-12.7 [facility] Comment on above: Order Comment: Speci men Type: BLOOD SPECIMENOrdering Facility: [facility] Address: [address] [place] [address] Performed By: #### 5 7021-8 ####[facility] LABIA [id number] [place] [address] [place] Platelets (Bld) [#/Vol] 218 10*3/uL Normal 150-400 [facility] Comment on above: Order Comment: Speci men Type: BLOOD SPECIMENOrdering Facility: [facility] Address: [address] [place] [address] Performed By: #### 5 7021-8 ####[facility] LABIA [id number] [place] [address] [place] RBC (Bld) [#/Vol] 5.03 10*6/uL Normal 4.20-6.00 [facility] Comment on above: Order Comment: Speci men Type: BLOOD SPECIMENOrdering Facility: [facility] Address: [address] [place] [address] Performed By: #### 5 7021-8 ####[facility] LABCLIA [id number] [address] [address] [place] WBC (Bld) [#/Vol] 4.93 10*3/uL Normal 3.70-11.00 [facility] Comment on above: Order Comment: Speci men Type: BLOOD SPECIMENOrdering Facility: [facility] Address: [address] [place] [address] Performed By: #### 5 7021-8 ####[facility] LABCLIA [id number] [address] [address] [place] Hepatic function 2000 panelo n 06-23-2024 Albumin [Mass/Vol] 4.8 g/dL Normal 3.9-4.9 [facility] Comment on above: Order Comment: Speci men Type: BLOOD SPECIMENOrdering Facility: [facility] Address: [address] [place] [address] Performed By: #### 2 4325-3, 43138-2 ####[facility] LABIA [id number] [place] [address] [place] ALP [Catalytic activity/Vol] 77 U/L Normal 38-113 [facility] Comment on above: Order Comment: Speci men Type: BLOOD SPECIMENOrdering Facility: [facility] Address: [address] [place], [place] [address] Performed By: #### 2 4325-3, 69022-4 ####[facility] LABCLIA [id number] [place] [address] [place] ALT [Catalytic activity/Vol] 28 U/L Normal 10-54 [facility] Comment on above: Order Comment: Speci men Type: BLOOD SPECIMENOrdering Facility: [facility] Address: [address] [place], [place] [address] Performed By: #### 2 4325-3, 79650-1 ####[facility] LABCLIA [id number] [address] [address] [place] AST [Catalytic activity/Vol] 28 U/L Normal 14-40 [facility] Comment on above: Order Comment: Speci men Type: BLOOD SPECIMENOrdering Facility: [facility] Address: [address] [place] [address] Performed By: #### 2 4325-3, 36782-5 ####[facility] LABCLIA [id number] [place] [address] [place] Bilirubin [Mass/Vol] 0.5 mg/dL Normal 0.2-1.3 [facility] Comment on above: Order Comment: Speci men Type: BLOOD SPECIMENOrdering Facility: [facility] Address: [address] [place] [address] Performed By: #### 2 4325-3, 58968-6 ####[facility] LABCLIA [id number] [place] [address] [place] Bilirubin.conjugate d [Mass/Vol] mg/dL Normal <0.2 [facility] Comment on above: Order Comment: Speci men Type: BLOOD SPECIMENOrdering Facility: [facility] Address: [address] [place] [address] Performed By: #### 2 4325-3, 23972-1 ####[facility] LABCLIA [id number] [place] [address] [place] Protein [Mass/Vol] 7.2 g/dL Normal 6.3-8.0 [facility] Comment on above: Order Comment: Speci men Type: BLOOD SPECIMENOrdering Facility: [facility] Address: [address] [place] [address] Performed By: #### 2 4325-3, 50416-8 ####[facility] LABCLIA [id number] [place] [address] [place] CNCOon 06-21-2024 CNCO Letter Text Normal [facility] CNOVon 06-21-2024 CNOV Office Visit (GSTNOR ) AYAZ LOPEZ ([id number]) 4 M Date Time Provider Department 06/21/24 1:50 PM CODI DUNN GSTNOR During your visit today, we recorded the following information about you: Pulse Blood pressure Weight Height 78/minute 112/68 76.7 kg 1.854 m Codi Dunn PA-C 06/21/2024 2:24 PM Signed CHIEF COMPLAINT: Patient presents with: Ulcerative pancolitis HPI Ayaz Lopez is a 23 year old male here today for Ulcerative pancolitis. 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 Most recent colonoscopy 02/2024 confirmed findings of UC pancolitis. Started on Lialda 4 tabs daily last OV Tolerating Lialda well. Bms 2 per day, formed to loose consistency, occasional blood coating stools 1-2x per week but includes overall this has been improving Notes occasional clear watery rectal discharge when holding Bms too long Limiting gluten in diet give h/o genetic risk positive but not completely GF. Having regular postprandial bloating even with smaller meals Following counselor through outside network Denies abd pain, N/V, purulent discharge, rectal pain Celiac 01/2024 negative for active disease, positive for genetic risk Colon 02/2024 Impression: - Pancolitis ulcerative colitis with UCEIS total score of 3 (mild disease), quiescent since last examination. Biopsied. - Non-bleeding internal hemorrhoids. - The examined portion of the ileum was normal. Biopsied. - The examination was otherwise normal. Component FINAL DIAGNOSIS A. Colon, cecum, biopsy: - Chronic severely active colitis with focal erosion. - Negative for granuloma and dysplasia. B. Terminal ileum, biopsy: - Small intestinal mucosa with no significant pathologic abnormality. - Negative for granuloma, pyloric gland metaplasia, and dysplasia. C. Colon, ascending, biopsy: - Chronic moderately active colitis. - Negative for granuloma and dysplasia. D. Colon, transverse, biopsy: - Chronic moderately active colitis. - Negative for granuloma and dysplasia. E. Colon, descending, biopsy: - Chronic severely active colitis with focal erosion. - Negative for granuloma and dysplasia. F. Colon, sigmoid, biopsy: - Chronic mildly active colitis. - Negative for granuloma and dysplasia. G. Rectum, biopsy: - Chronic mildly active colitis. - Negative for granuloma and dysplasia. OV 02/2024 Accompanied my mom Ayaz Lopez is a 23 year old male who presents for Ulcerative Colitis (Colon 02/02/24, MRI 12/05/23). 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 Most recent colonoscopy 02/2024 confirmed findings of UC pancolitis. Bms are 2 per day, formed consistency, occasional blood tinged stools 2x per week. Notes regular fatigue. Denies family hx of IBD, abd pain, weight loss, GERD, N/V, NSAID usage, joint pains, skin changes, vision changes. Current Outpatient Medications Medication Sig Mesalamine (LIALDA) 1.2 gram EC tablet Take 4 tablets by mouth once daily. Take with food. Do not cut tablet. fluticasone (FLONASE) 50 mcg/actuation nasal spray No current facility-administered medications for this visit. ALLERGIES Allergen Reactions Omnicef [Cefdinir] Unknown Social History Tobacco Use Smoking status: Never Smokeless tobacco: Never Vaping Use Vaping status: Never Used Substance Use Topics Alcohol use: Never Drug use: Never PAST MEDICAL HISTORY Diagnosis Date Allergy PSC (primary sclerosing cholangitis) Ulcerative colitis (HCC) PAST SURGICAL HISTORY Procedure Laterality Date ADENOIDECTOMY HX COLONOSCOPY SCREENING 02/02/2024 LIVER BIOPSY 12/05/2023 FAMILY HISTORY Problem Relation Age of Onset Colon Cancer No Family History REVIEW OF SYSTEMS Review of Systems All other systems reviewed and are negative. PHYSICAL EXAM BP 112/68 Pulse 78 Ht 185.4 cm (6' 1 ) Wt 76.7 kg (169 lb) BMI 22.30 kg/m? Physical Exam Constitutional: General: He is not in acute distress. Appearance: Normal appearance. He is normal weight. He is not ill-appearing, toxic-appearing or diaphoretic. HENT: Head: Normocephalic and atraumatic. Nose: Nose normal. Eyes: General: No scleral icterus. Right eye: No discharge. Left eye: No discharge. Extraocular Movements: Extraocular movements intact. Conjunctiva/sclera: Conjunctivae normal. Pupils: Pupils are equal, round, and reactive to light. Cardiovascular: Rate and Rhythm: Normal rate and regular rhythm. Pulses: Normal pulses. Heart sounds: Normal heart sounds. No murmur heard. No friction rub. No gallop. Pulmonary: Effort: No respiratory distress. Breath sounds: Normal breath sounds. No stridor. No wheezing, rhonchi or rales. Chest: Chest wall: No tenderness. Abdominal: General: Abdomen is flat. Bowel sounds are normal. There is no disten (more content not included)... Normal [facility] Hepatic function 2000 panelo n 04-30-2024 Albumin [Mass/Vol] 4.3 g/dL Normal 3.9-4.9 [facility] Comment on above: Order Comment: Saji albarran Type: STOOL SPECIMEN [facility] Address: [address] [place] [address] Performed By: #### P ANCEF, 48648-7 #### [facility] LAB CLIA [id number] [address] [place] [address] [place] ALP [Catalytic activity/Vol] 104 U/L Normal 38-113 [facility] Comment on above: Order Comment: Criseldai deion Type: STOOL SPECIMEN [facility] Address: [address] [place] [address] Performed By: #### P ANCEF, 09142-8 #### [facility] LAB CLIA [id number] [address] [place] [address] [place] ALT [Catalytic activity/Vol] 57 U/L High 10-54 [facility] Comment on above: Order Comment: Criseldai deion Type: STOOL SPECIMEN [facility] Address: [address] [place] [address] Performed By: #### P ANCEF, 71093-7 #### [facility] LAB CLIA [id number] [address] [place] [address] [place] AST [Catalytic activity/Vol] 44 U/L High 14-40 [facility] Comment on above: Order Comment: Speci men Type: STOOL SPECIMEN [facility] Address: [address] [place] [address] Performed By: #### P ANCEF, 98100-6 #### [facility] LAB CLIA [id number] [address] [place] [address] [place] Bilirubin [Mass/Vol] 0.4 mg/dL Normal 0.2-1.3 [facility] Comment on above: Order Comment: Speci men Type: STOOL SPECIMEN [facility] Address: [address] [place] [address] Performed By: #### P ANCEF, 68975-2 #### [facility] LAB CLIA [id number] [address] [place] [address] [place] Bilirubin.conjugate d [Mass/Vol] mg/dL Normal <0.2 [facility] Comment on above: Order Comment: Speci men Type: STOOL SPECIMEN [facility] Address: [address] [place] [address] Performed By: #### P ANCEF, 66518-3 #### [facility] LAB CLIA [id number] [address] [place] [address] [place] Protein [Mass/Vol] 6.8 g/dL Normal 6.3-8.0 [facility] Comment on above: Order Comment: Speci men Type: STOOL SPECIMEN [facility] Address: [address] [place] [address] Performed By: #### P ANCEF, 29114-9 #### [facility] LAB CLIA [id number] [address] [place] [address] [place] Basic metabolic 2000 panelon 02-08-2024 Anion gap [Moles/Vol] 14 mmol/L Normal 9-18 [facility] Comment on above: Order Comment: Speci men Type: STOOL SPECIMEN [facility] Address: [address] [place] [address] Performed By: #### P ANCEF, 68378-0 #### [facility] LAB CLIA [id number] [address] [place] [address] [place] Calcium [Mass/Vol] 9.4 mg/dL Normal 8.5-10.2 [facility] Comment on above: Order Comment: Speci men Type: STOOL SPECIMEN [facility] Address: [address] [place] [address] Performed By: #### P ANCEF, 00922-6 #### [facility] LAB CLIA [id number] [address] [place] [address] [place] Chloride [Moles/Vol] 103 mmol/L Normal 97-105 [facility] Comment on above: Order Comment: Speci men Type: STOOL SPECIMEN [facility] Address: [address] [place] [address] Performed By: #### P ANCEF, 85308-9 #### [facility] LAB CLIA [id number] [address] [place] [address] [place] CO2 [Moles/Vol] 22 mmol/L Normal 22-30 [facility] Comment on above: Order Comment: Speci men Type: STOOL SPECIMEN [facility] Address: [address] [place] [address] Performed By: #### P ANCEF, 87214-9 #### [facility] LAB CLIA [id number] [address] [place] [address] [place] Creatinine [Mass/Vol] 0.83 mg/dL Normal 0.73-1.22 [facility] Comment on above: Order Comment: Speci men Type: STOOL SPECIMEN [facility] Address: [address] [place] [address] Performed By: #### P ANCEF, 13397-8 #### [facility] LAB CLIA [id number] [address] [place] [address] [place] Creatinine and Glomerular filtration rate.predicted panel (S/P/Bld) 128 mL/min/1.73m??? Normal >=60 [facility] Comment on above: Order Comment: Saji albarran Type: STOOL SPECIMEN [facility] Address: [address] [place] [address] Result Comment: Angela mated Glomerular Filtration Rate (eGFR) is calculated using the 2020 CKD-EPI creatinine equation. This equation utilizes serum creatinine, sex, and age as parameters. The creatinine assay has traceable calibration to isotope dilution-mass spectrometry. Refer to KDIGO guidelines for clinical interpretation. In patients with unstable renal function, e.g. those with acute kidney injury, the eGFR may not accurately reflect actual GFR. Performed By: #### P JAQUELINE, 27303-9 #### [facility] CLIA [id number] [address] [place] [address] [place] Glucose [Mass/Vol] 73 mg/dL Low 74-99 [facility] Comment on above: Order Comment: Spectucker albarran Type: STOOL SPECIMEN [facility] Address: [address] [place] [address] Result Comment: The [place] [employer] (ADA) provides guidance for cutoff values for fasting glucose and random glucose. The ADA defines fasting as no caloric intake for at least 8 hours. Fasting plasma glucose results between 100 to 125 mg/dL indicate increased risk for diabetes (prediabetes). Fasting plasma glucose results greater than or equal to 126 mg/dL meet the criteria for diagnosis of diabetes. In the absence of unequivocal hyperglycemia, results should be confirmed by repeat testing. In a patient with classic symptoms of hyperglycemia or hyperglycemic crisis, random plasma glucose results greater than or equal to 200 mg/dL meet the criteria for diagnosis of diabetes. Reference: Standards of Medical Care in Diabetes 2016, [employer] [place] [employer]. Diabetes Care. 2016.39(Suppl 1). Performed By: #### P ANCMAKI, 19620-7 #### [facility] CLIA [id number] [address] [place] [address] [place] Potassium [Moles/Vol] 4.0 mmol/L Normal 3.7-5.1 [facility] Comment on above: Order Comment: Speci men Type: STOOL SPECIMEN [facility] Address: [address] [place] [address] Performed By: #### P ANCEF, 71843-8 #### [facility] CLIA [id number] [address] [place] [address] [place] Sodium [Moles/Vol] 139 mmol/L Normal 136-144 [facility] Comment on above: Order Comment: Speci men Type: STOOL SPECIMEN [facility] Address: [address] [place] [address] Performed By: #### P ANCEF, 02440-9 #### [facility] CLIA [id number] [address] [place] [address] [place] Urea nitrogen [Mass/Vol] 9 mg/dL Normal 9-24 [facility] Comment on above: Order Comment: Speci men Type: STOOL SPECIMEN [facility] Address: [address] [place] [address] Performed By: #### P ANCEF, 97037-6 #### [facility] CLIA [id number] [address] [place] [address] [place] CBC panel Auto (Bld)on 02-07 Erythrocyte distribution width (RBC) [Ratio] 12.9 % Normal 11.5-15.0 [facility] Comment on above: Order Comment: Speci men Type: BLOOD SPECIMENOrdering Facility: [facility] Address: [address] [place] [address] Performed By: #### 5 8410-2, 4537-7 ####[facility] LABCLIA [id number] [place] [address] [place] Hematocrit (Bld) [Volume fraction] 42.9 % Normal 39.0-51.0 [facility] Comment on above: Order Comment: Speci men Type: BLOOD SPECIMENOrdering Facility: [facility] Address: [address] [place] [address] Performed By: #### 5 8410-2, 4537-7 ####[facility] LABCLIA [id number] [place] [address] [place] Hemoglobin (Bld) [Mass/Vol] 14.2 g/dL Normal 13.0-17.0 [facility] Comment on above: Order Comment: Speci men Type: BLOOD SPECIMENOrdering Facility: [facility] Address: [address] [place] [address] Performed By: #### 5 8410-2, 4537-7 ####[facility] LABCLIA [id number] [place] [address] [place] MCH (RBC) [Entitic mass] 29.0 pg Normal 26.0-34.0 [facility] Comment on above: Order Comment: Speci men Type: BLOOD SPECIMENOrdering Facility: [facility] Address: [address] [place] [address] Performed By: #### 5 8410-2, 4537-7 ####[facility] LABCLIA [id number] [place] [address] [place] MCHC (RBC) [Mass/Vol] 33.1 g/dL Normal 30.5-36.0 [facility] Comment on above: Order Comment: Speci men Type: BLOOD SPECIMENOrdering Facility: [facility] Address: [address] [place] [address] Performed By: #### 5 8410-2, 4537-7 ####[facility] LABIA [id number] [place] [address] [place] MCV (RBC) [Entitic vol] 87.6 fL Normal 80.0-100.0 [facility] Comment on above: Order Comment: Speci men Type: BLOOD SPECIMENOrdering Facility: [facility] Address: [address] [place] [address] Performed By: #### 5 8410-2, 4537-7 ####[facility] LABIA [id number] [place] [address] [place] Nucleated RBC (Bld) [#/Vol] 10*3/uL Normal <0.01 [facility] Comment on above: Order Comment: Speci men Type: BLOOD SPECIMENOrdering Facility: [facility] Address: [address] [place] [address] Performed By: #### 5 8410-2, 453-7 ####[facility] LABIA [id number] [place] [address] [place] Platelet mean volume (Bld) [Entitic vol] 11.0 fL Normal 9.0-12.7 [facility] Comment on above: Order Comment: Speci men Type: BLOOD SPECIMENOrdering Facility: [facility] Address: [address] [place] [address] Performed By: #### 5 8410-2, 4536-7 ####[facility] LABIA [id number] [place] [address] [place] Platelets (Bld) [#/Vol] 281 10*3/uL Normal 150-400 [facility] Comment on above: Order Comment: Speci men Type: BLOOD SPECIMENOrdering Facility: [facility] Address: [address] [place] [address] Performed By: #### 5 8410-2, 4536-7 ####[facility] LABIA [id number] [place] [address] [place] RBC (Bld) [#/Vol] 4.90 10*6/uL Normal 4.20-6.00 [facility] Comment on above: Order Comment: Speci men Type: BLOOD SPECIMENOrdering Facility: [facility] Address: [address] [place] [address] Performed By: #### 5 8410-2, 4537-7 ####[facility] LABCLIA [id number] [place] [address] [place] WBC (Bld) [#/Vol] 8.17 10*3/uL Normal 3.70-11.00 [facility] Comment on above: Order Comment: Speci men Type: BLOOD SPECIMENOrdering Facility: [facility] Address: [address] [place] [address] Performed By: #### 5 8410-2, 4537-7 ####[facility] LABCLIA [id number] [place] [address] [place] CRP SerPl-mCncon 02-08-2024 CRP [Mass/Vol] mg/L Normal <0.9 [facility] Comment on above: Order Comment: Speci men Type: STOOL SPECIMEN [facility] Address: [address] [place] [address] Performed By: #### P ANCEF, 79792-4 #### [facility] CLIA [id number] [address] [place] [address] [place] Calprotectin (Stl) [Mass/Mas s]on 02-08-2024 CALPROTECTIN, FECAL INTERP Elevated Abnormal Normal [facility] Comment on above: Order Comment: Speci men Type: STOOL SPECIMENOrdering Facility: [facility] Address: [address] [place] [address] Result Comment: On 2022, [facility] [employer] implemented a new fecal calprotectin method, the [employer] Calprotectin assay. For assistance with interpretation of results in patients undergoing serial monitoring, contact Client Services at [phone] or [phone] to discuss options, preferably within 7 days of issuing this report. Interpretation: <50.0 ug/g: Normal 50.0 ug/g - 120.0 ug/g: Borderline elevated. Re-evaluation in 4-6 weeks is recommended if clinically indicated. >120.0 ug/g: Elevated Performed By: #### 3 8445-3 ####[facility] LABCLIA [id number] [place] [address] [place] CALPROTECTIN, FECAL QUANTITATIVE 668 ug/g High <50 [facility] Comment on above: Order Comment: Speci men Type: STOOL SPECIMENOrdering Facility: [facility] Address: [address] [place] [address] Performed By: #### 3 [id number] ####[facility] LABCLIA [id number] [place] [address] [place] ESR Westergren method (Bld) [Velocity]on 02-08-2024 ESR (Bld) [Velocity] 10 mm/h Normal 0-15 [facility] Comment on above: Order Comment: Speci men Type: BLOOD SPECIMENOrdering Facility: [facility] Address: [address] [place] [address] Performed By: #### 5 [id number], 4537-7 ####[facility] LABCLIA [id number] [place] [address] [place] Vit [facility] Cobalamin (Vitamin B12) [Mass/Vol] 583 pg/mL Normal 232-1245 [facility] Comment on above: Order Comment: Speci men Type: STOOL SPECIMEN [facility] Address: [address] [place] [address] Performed By: #### P ANCEF, [id number] #### [facility] LAB CLIA [id number] [address] [place] [address] [place] CNOVon 02-06-2024 CNOV Office Visit (GSTNOR ) AYAZ LOPEZ ([id number]) 4 M Date Time Provider Department 02/06/24 1:25 PM CODI DUNN During your visit today, we recorded the following information about you: Pulse Blood pressure Weight Height 58/minute 112/70 79.8 kg 1.854 m Codi Dunn PA-C 02/08/2024 8:01 PM Addendum CHIEF COMPLAINT: Patient presents with: Ulcerative Colitis: Colon 02/02/24, MRI 12/05/23 HPI: Accompanied my mom Ayaz Lopez is a 23 year old male who presents for Ulcerative Colitis (Colon 02/02/24, MRI 12/05/23). 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 Most recent colonoscopy 02/2024 confirmed findings of UC pancolitis. Bms are 2 per day, formed consistency, occasional blood tinged stools 2x per week. Notes regular fatigue. Denies family hx of IBD, abd pain, weight loss, GERD, N/V, NSAID usage, joint pains, skin changes, vision changes. Celiac 01/2024 negative for active disease, positive for genetic risk Colon 02/2024 Impression: - Pancolitis ulcerative colitis with UCEIS total score of 3 (mild disease), quiescent since last examination. Biopsied. - Non-bleeding internal hemorrhoids. - The examined portion of the ileum was normal. Biopsied. - The examination was otherwise normal. Component FINAL DIAGNOSIS A. Colon, cecum, biopsy: - Chronic severely active colitis with focal erosion. - Negative for granuloma and dysplasia. B. Terminal ileum, biopsy: - Small intestinal mucosa with no significant pathologic abnormality. - Negative for granuloma, pyloric gland metaplasia, and dysplasia. C. Colon, ascending, biopsy: - Chronic moderately active colitis. - Negative for granuloma and dysplasia. D. Colon, transverse, biopsy: - Chronic moderately active colitis. - Negative for granuloma and dysplasia. E. Colon, descending, biopsy: - Chronic severely active colitis with focal erosion. - Negative for granuloma and dysplasia. F. Colon, sigmoid, biopsy: - Chronic mildly active colitis. - Negative for granuloma and dysplasia. G. Rectum, biopsy: - Chronic mildly active colitis. - Negative for granuloma and dysplasia. Electronically signed by Ann Hollins Ref Rng 01/06/2024 Albumin 3.9 - 4.9 g/dL 4.3 Bilirubin, Total 0.2 - 1.3 mg/dL 0.4 Bilirubin, Conjug <0.2 mg/dL <0.2 Alkaline Phosphatase 38 - 113 U/L 208 (H) AST 14 - 40 U/L 58 (H) ALT 10 - 54 U/L 126 (H) Protein, Total 6.3 - 8.0 g/dL 7.3 TONIO Interpretation The HLA-DQ genotype of the patient is supportive of an increased risk of celiac disease. HLA-DQA1 Genotype HLA-DQA1*: 05, 01 HLA-DQB1 Genotype HLA-DQB1*: 02:01, 06 Celiac Risk Haplotype Positive Celiac Category Category 3 Transglutaminase IgG Abs <6 U/mL Transglutaminase IgG Abs Interpretation Negative Transglutaminase IgA Abs <4 U/mL Transglutaminase IgA Abs Interpretation Negative Vitamin E-alpha 6.0 - 23.0 mg/L 9.8 Vitamin E-gamma 0.3 - 3.2 mg/L 0.8 TSH 0.510 - 4.300 mIU/L Vitamin D 25 Hydroxy 31.0 - 80.0 ng/mL 33.5 Vitamin A 0.30 - 1.20 mg/L 0.32 Legend: (H) High Record Review: [facility] / Outside records reviewed. PAST MEDICAL HISTORY Diagnosis Date Allergy PSC (primary sclerosing cholangitis) Ulcerative colitis (HCC) PAST SURGICAL HISTORY Procedure Laterality Date ADENOIDECTOMY HX COLONOSCOPY SCREENING 02/02/2024 LIVER BIOPSY 12/05/2023 Allergies: ALLERGIES Allergen Reactions Omnicef [Cefdinir] Unknown Medications: Cetirizine (ZYRTEC) 10 mg cap fluticasone (FLONASE) 50 mcg/actuation nasal spray cetirizine (ZYRTEC) 1 mg/mL syrup Take by mouth. FAMILY HISTORY Problem Relation Age of Onset Colon Cancer No Family History Employer And Job Title: None on file Years Of Education Completed: Not specified Marital Status: Single Social History Tobacco Use Smoking status: Never Smokeless tobacco: Never Vaping Use Vaping Use: Never used Substance Use Topics Alcohol use: Never Drug use: Never Review of Systems: Review of Systems Constitutional: Positive for fatigue. Gastrointestinal: Positive for abdominal pain and blood in stool. All other systems reviewed and are negative. Are you taking any blood thinners? No Physical Examination: BP 112/70 Pulse (!) 58 Ht 185.4 cm (6' 1 ) Wt 79.8 kg (176 lb) BMI 23.22 kg/m? Physical Exam Constitutional: General: He is not in acute distress. Appearance: Normal appearance. He is normal weight. He is not ill-appearing, toxic-appearing or diaphoretic. HENT: Head: Normocephalic and atraumatic. Nose: Nose normal. Eyes: General: No scleral icterus. Right eye: No discharge. Left eye: No discharge. Extraocular Movements: Extraocular movements intact. Conjunctiva/sclera: Conjunctivae normal. Pupils: Pupils are equal, round, and reactive to light. Cardiovascular: Rate and Rhythm: Normal rate a (more content not included)... Normal [facility] [id number] 02-02-2024 [id number] HNO ID: [id number] Author: DANIELLE ZALDIVAR RN Service: ? Author Type: Registered Nurse Type: [id number] Filed: 02/02/2024 09:23 Note Text: The patient received a copy of Colonoscopy discharge instructions that contain information for how to contact the physician who performed the procedure and when to seek medical care. Normal [facility] Colonoscopyon 02-02-2024 Colonoscopy [facility] Gastrointestinal Endoscopy Patient Name: Ayaz Lopez Procedure Date: 02/02/2024 8:39 AM Date of : 2000 Admit Type: Outpatient Age: 23 Gender: Male Note Status: Finalized Procedure: Colonoscopy Indications: Obtain more precise diagnosis of inflammatory bowel disease, Suspected ulcerative colitis Providers: Levi Miles MD Patient Profile: This is a 23 year old male. Refer to note in patient chart for documentation of history and physical. Last Colonoscopy: none. The patient's first colonoscopy is today. Referring Physician: Siva Rome MD (Referring MD) Medicines: Fentanyl 100 micrograms IV, Midazolam 7 mg IV, Diphenhydramine 50 mg IV Complications: No immediate complications. Estimated blood loss: Minimal. Requesting Provider: Procedure: Pre-Anesthesia Assessment: - Prior to the procedure, a History and Physical was performed, and patient medications and allergies were reviewed. The patient's tolerance of previous anesthesia was also reviewed. The risks and benefits of the procedure and the sedation options and risks were discussed with the patient. All questions were answered, and informed consent was obtained. Prior Anticoagulants: The patient has taken no anticoagulant or antiplatelet agents. ASA Grade Assessment: II - A patient with mild systemic disease. After reviewing the risks and benefits, the patient was deemed in satisfactory condition to undergo the procedure. After I obtained informed consent, the scope was passed under direct vision. Throughout the procedure, the patient's blood pressure, pulse, and oxygen saturations were monitored continuously. The Colonoscope was introduced through the anus and advanced to 2 cm into the ileum. The colonoscopy was performed without difficulty. The patient tolerated the procedure well. The quality of the bowel preparation was adequate to identify polyps greater than 5 mm in size. The terminal ileum, ileocecal valve, appendiceal orifice, and rectum were photographed. Moderate Sedation: The administration of moderate sedation was initiated at 08:44 AM. Moderate (conscious) sedation was personally administered by the endoscopist. The following parameters were monitored: oxygen saturation, heart rate, blood pressure, respiratory rate, EKG, adequacy of pulmonary ventilation, and response to care. Total physician intraservice time was 18 minutes. Findings: The perianal and digital rectal examinations were normal. Inflammation was found in a continuous and circumferential pattern from the rectum to the cecum. This was graded using the Ulcerative Colitis Endoscopic Index of Severity (UCEIS): patchy obliteration of vascular pattern (1), mucosal bleeding (1), erosions as tiny defects in the mucosa (1), with UCEIS total score of 3 (mild disease). When compared to the previous examination, the findings are quiescent. Biopsies were taken with a cold forceps for histology. Non-bleeding internal hemorrhoids were found during retroflexion. The hemorrhoids were mild and small. The terminal ileum appeared normal. Biopsies were taken with a cold forceps for histology. The exam was otherwise without abnormality. Impression: - Pancolitis ulcerative colitis with UCEIS total score of 3 (mild disease), quiescent since last examination. Biopsied. - Non-bleeding internal hemorrhoids. - The examined portion of the ileum was normal. Biopsied. - The examination was otherwise normal. Recommendation: - Patient has a contact number available for emergencies. The signs and symptoms of potential delayed complications were discussed with the patient. Return to normal activities tomorrow. Written discharge instructions were provided to the patient. - Resume previous diet. - Continue present medications. - Await pathology results. - Repeat colonoscopy at appointment to be scheduled for surveillance. - Return to referring physician at appointment to be scheduled. Procedure Code(s): --- Professional --- 81145, Colonoscopy, flexible; with biopsy, single or multiple G0500, Moderate sedation services provided by the same physician or other qualified health healthcare recruiter performing a gastrointestinal endoscopic service that sedation supports, requiring the presence of an independent trained observer to assist in the monitoring of the patient's level of consciousness and physiological status; initial 15 minutes of intra-service time; patient age 5 years or older (additional time may be reported with 59098, as appropriate) Diagnosis Code(s): --- Professional --- K51.00, Ulcerative (chronic) pancolitis without complications K64.8, Other hemorrhoids K52.3, Indeterminate colitis CPT copyright 2020 [employer]. All rights reserved. The codes documented in this report are preliminary and upon journeyman electrician review may be revised to me (more content not included)... Normal [facility] Flexible sigmoidoscopy study on 02-02-2024 [facility] Gastrointestinal Endoscopy Patient Name: Ayaz Lopez Procedure Date: 02/02/2024 8:39 AM Date of : 2000 Admit Type: Outpatient Age: 23 Gender: Male Note Status: Finalized Procedure: Colonoscopy Indications: Obtain more precise diagnosis of inflammatory bowel disease, Suspected ulcerative colitis Providers: Levi Miles MD Patient Profile: This is a 23 year old male. Refer to note in patient chart for documentation of history and physical. Last Colonoscopy: none. The patient's first colonoscopy is today. Referring Physician: Siva Rome MD (Referring MD) Medicines: Fentanyl 100 micrograms IV, Midazolam 7 mg IV, Diphenhydramine 50 mg IV Complications: No immediate complications. Estimated blood loss: Minimal. Requesting Provider: Procedure: Pre-Anesthesia Assessment: - Prior to the procedure, a History and Physical was performed, and patient medications and allergies were reviewed. The patient's tolerance of previous anesthesia was also reviewed. The risks and benefits of the procedure and the sedation options and risks were discussed with the patient. All questions were answered, and informed consent was obtained. Prior Anticoagulants: The patient has taken no anticoagulant or antiplatelet agents. ASA Grade Assessment: II - A patient with mild systemic disease. After reviewing the risks and benefits, the patient was deemed in satisfactory condition to undergo the procedure. After I obtained informed consent, the scope was passed under direct vision. Throughout the procedure, the patient's blood pressure, pulse, and oxygen saturations were monitored continuously. The Colonoscope was introduced through the anus and advanced to 2 cm into the ileum. The colonoscopy was performed without difficulty. The patient tolerated the procedure well. The quality of the bowel preparation was adequate to identify polyps greater than 5 mm in size. The terminal ileum, ileocecal valve, appendiceal orifice, and rectum were photographed. Moderate Sedation: The administration of moderate sedation was initiated at 08:44 AM. Moderate (conscious) sedation was personally administered by the endoscopist. The following parameters were monitored: oxygen saturation, heart rate, blood pressure, respiratory rate, EKG, adequacy of pulmonary ventilation, and response to care. Total physician intraservice time was 18 minutes. Findings: The perianal and digital rectal examinations were normal. Inflammation was found in a continuous and circumferential pattern from the rectum to the cecum. This was graded using the Ulcerative Colitis Endoscopic Index of Severity (UCEIS): patchy obliteration of vascular pattern (1), mucosal bleeding (1), erosions as tiny defects in the mucosa (1), with UCEIS total score of 3 (mild disease). When compared to the previous examination, the findings are quiescent. Biopsies were taken with a cold forceps for histology. Non-bleeding internal hemorrhoids were found during retroflexion. The hemorrhoids were mild and small. The terminal ileum appeared normal. Biopsies were taken with a cold forceps for histology. The exam was otherwise without abnormality. Impression: - Pancolitis ulcerative colitis with UCEIS total score of 3 (mild disease), quiescent since last examination. Biopsied. - Non-bleeding internal hemorrhoids. - The examined portion of the ileum was normal. Biopsied. - The examination was otherwise normal. Recommendation: - Patient has a contact number available for emergencies. The signs and symptoms of potential delayed complications were discussed with the patient. Return to normal activities tomorrow. Written discharge instructions were provided to the patient. - Resume previous diet. (more content not included)... PROVATION [facility] Radiology Study observation (narrative) [facility] HISTORY PHYSICALon 4 HISTORY PHYSICAL HNO ID: [id number] Author: LEVI MILES MD Service: General Surgery Author Type: Physician Type: H&P Filed: 02/02/2024 08:43 Note Text: HPI: Ayaz Lopez is a 22 year old gentleman with newly diagnosed PSC here for follow-up Initially saw him for further eval of abnormal liver tests Had MRCP which noted mild intrahepatic biliary dilation, liver biopsy with chronic biliary obstruction and periportal fibrosis consistent with PSC Doing well otherwise Clinic visit: In [place] for a mission trip, hadn't been feeling well which prompted him to seek evaluation Main symptom was fatigue and intermittent headache No sore throat, fevers, constitutional symptoms, weight loss In Sep , liver tests noted to be abnormal- ALT 141, AST 70, alk phos 185, tbili 0.9 Then had follow-up testing- RUQ was normal Smooth muscle Ab + (59), JULES >1:1280, GGT elevated Patient was told he had autoimmune hepatitis and needed to be evaluated further by a liver specialist Hepatitis panel unremarkable Patient does recall about 2 years ago having a full body rash- had celiac testing which was negative (though IgA low and only had TTG IgA) Weights 184.5 lbs- no weight loss or other GI symptoms No family history of autoimmune diseases Denies any EtOH, ilicit substances Review of Systems: See note Past Medical History: PAST MEDICAL HISTORY PAST MEDICAL HISTORY Diagnosis Date Allergy Past Surgical History: PAST SURGICAL HISTORY PAST SURGICAL HISTORY Procedure Laterality Date ADENOIDECTOMY HX Family History: FAMILY HISTORY No family history on file. Social History: Denies EtOH, ilicit substances I have confirmed and edited as necessary, the PFSH and ROS obtained by others. Outpatient medications: Current Outpatient Medications on File Prior to Visit Medication Sig cetirizine (ZYRTEC) 1 mg/mL syrup Take by mouth. fluticasone (FLONASE) 50 mcg/actuation nasal spray montelukast (SINGULAIR) 10 mg tablet Melatonin 5 mg cap Take 5 mg by mouth. triamcinolone acetonide (NASACORT AQ) 55 mcg nasal inhaler Use in the nose. Ibuprofen 200 mg cap Take by mouth. No current facility-administered medications on file prior to visit. Vitals: There were no vitals taken for this visit. Physical Exam: General: pleasant, conversant, in no apparent distress Eye: conjunctiva anicteric, Lungs: normal respiratory effort Skin: no jaundice/rashes/lesions Neuro: Aox3 Psych: appropriate affect Laboratory: A. Liver, biopsy: -Liver with features of chronic biliary obstruction and periportal fibrosis, see comment. Diagnosis Comment The liver parenchymal architecture is preserved. The portal areas contain patchy mild lymphocytic inflammation and patchy mild bile ductular reaction. Scattered citizen [place] interlobular bile ducts show mild nuclear disarray. Concentric periductal fibrosis is observed surrounding multiple interlobular bile ducts. [place] interlobular bile ducts are identified in approximately 22 of 24 intact portal tracts. No duct centric inflammation, florid duct lesion, plasma cell rich inflammation, or significant interface activity is appreciated. Within the lobular parenchyma, patchy minimal mixed lymphocytic and histiocytic inflammation is seen. No significant hepatocellular apoptosis, necrosis, cholestasis, or steatosis is appreciated. A trichrome stain highlights periportal fibrosis and no bridging fibrosis. A PAS-D stain is negative for intrahepatocellular PAS positive globules. An iron stain is negative. A CK7 immunostain shows positive staining in bile ducts as well as patchy periportal hepatocytes. A copper stain shows positive staining in periportal hepatocytes. Overall, the liver shows features of chronic biliary obstruction. The patient's recent MRCP which demonstrated mild intrahepatic bile duct dilation and raised the possibility of early primary sclerosing cholangitis (PSC) is noted. The biopsy findings are compatible with PSC in the appropriate clinical and radiographic context. Correlation to exclude other causes of sclerosing cholangitis, mechanical biliary obstruction, and drug induced liver injury is required. Morphologic findings to suggest ongoing autoimmune hepatitis are not appreciated. Endoscopy: Imaging: MRI/MRCP Mild intrahepatic biliary duct dilation with queried focal areas of central narrowing near the confluence. Subtle peribiliary enhancement suggestive of mild inflammation. No overt beaded appearance, although findings could relate to early primary sclerosing cholangitis in the appropriate clinical setting. Normal liver morphology. Assessment and Plan: In conclusion, Ayaz Lopez is a 22 year old gentleman with newly diagnosed PSC here for follow-up Needs colonoscopy to screen for UC Bi-annual MRCP with CA 19-9 Will send IgG4 Checking fat solub (more content not included)... Normal [facility] NURSING PROGon 02-02-2024 NURSING PROG HNO ID: [id number] Author: DANIELLE ZALDIVAR RN Service: ? Author Type: Registered Nurse Type: Nursing Progress Note Filed: 02/02/2024 09:26 Note Text: Pt. arrived to phase 2 resting/ awake on left side. Denies pain/ nausea. SR up x 2, call light in reach. Danielle Zaldivar RN Normal [facility] SURGICAL PATHOLOGYon 024 ADDENDUM 1: Normal [facility] Comment on above: Order Comment: Speci men Type: TISSUE SPECIMENOrdering Facility: [facility] Address: [address] [place] [address] Result Comment: E. I mmunohistochemical stain for CMV is negative for viral inclusions. Laboratory Developed Test (LDT) Disclaimer: Performance characteristics of immunohistochemical, immunofluorescent and chromogenic in-situ hybridization tests have been determined by the performing laboratory within [facility]???s [facility] Pathology and Laboratory Medicine Department ([facility], [facility], [facility], [facility], [facility], [facility], or [facility]) in a manner consistent with CLIA requirements. One or more of these tests have not been cleared or approved by the FDA. [facility] is regulated under CLIA as qualified to perform high-complexity testing. These tests are used for clinical purposes. They should not be regarded as investigational or for research. Positive and negative controls stain appropriately. Addendum electronically signed by Pauly Hollins MD on 02/06/2024 at 12:00 PM Performed By: #### S ####[facility] LABCLIA [id number] [address] [place] CASE REPORT Normal [facility] Comment on above: Order Comment: Speci men Type: TISSUE SPECIMENOrdering Facility: [facility] Address: [address] [place] [address] Result Comment: Surg ica Pathology Report Case: [id number] Authorizing Provider: Levi Miles MD Collected: 02/02/2024 08:55 AM Ordering Location: Ambulatory Surgery Received: 02/02/2024 11:51 AM Pathologist: Pauly Hollins MD Specimens: A) - Colon, Cecum, Biopsy, Cecal bxs B) - Small Bowel, Terminal Ileum, Biopsy C) - Colon, Ascending, Biopsy, Ascending colon bxs D) - Colon, Transverse, Biopsy, Transverse colon bxs E) - Colon, Descending, Biopsy, Descending colon bxs F) - Colon, Sigmoid, Biopsy, Sigmoid colon bxs G) - Rectum, Biopsy, Rectal bxs Performed By: #### S ####[id number] [address] DIAGNOSIS COMMENT Due to the presence of focal erosion, immunohistochemical stain for CMV is ordered on block E1 and will be reported in an addendum. Part E was reviewed with Dr. Cook, who concurs. Normal [facility] Comment on above: Order Comment: Speci men Type: TISSUE SPECIMENOrdering Facility: [facility] Address: [address] [place] [address] Performed By: #### S ####[facility] [id number] [address] FINAL DIAGNOSIS Normal [facility] Comment on above: Order Comment: Speci men Type: TISSUE SPECIMENOrdering Facility: [facility] Address: [address] [place] [address] Result Comment: A. C olon, cecum, biopsy: - Chronic severely active colitis with focal erosion. - Negative for granuloma and dysplasia. B. Terminal ileum, biopsy: - Small intestinal mucosa with no significant pathologic abnormality. - Negative for granuloma, pyloric gland metaplasia, and dysplasia. C. Colon, ascending, biopsy: - Chronic moderately active colitis. - Negative for granuloma and dysplasia. D. Colon, transverse, biopsy: - Chronic moderately active colitis. - Negative for granuloma and dysplasia. E. Colon, descending, biopsy: - Chronic severely active colitis with focal erosion. - Negative for granuloma and dysplasia. F. Colon, sigmoid, biopsy: - Chronic mildly active colitis. - Negative for granuloma and dysplasia. G. Rectum, biopsy: - Chronic mildly active colitis. - Negative for granuloma and dysplasia. Performed By: #### S ####[facility] LABCLIA [id number] [place] [address] [place] FINAL PERFORMING LAB Normal [facility] Comment on above: Order Comment: Speci men Type: TISSUE SPECIMENOrdering Facility: [facility] Address: [address] [place] [address] Result Comment: Diag nostic interpretation performed at [facility], [address] [address] CLIA# [id number] [place] Teacher: Andrea Padron M.D. Performed By: #### S ####[facility] LABCLIA [id number] [place] [address] [place] GROSS DESCRIPTION Normal [facility] Comment on above: Order Comment: Speci men Type: TISSUE SPECIMENOrdering Facility: [facility] Address: [address] [place] [address] Result Comment: A. C olon, Cecum, Biopsy Received in formalin are two pieces of ordoñez, soft tissue aggregating to 0.8 x 0.3 x 0.2 cm. Totally submitted in one cassette. B. Small Bowel, Terminal Ileum, Biopsy Received in formalin are two pieces of ordoñez, soft tissue aggregating to 0.7 x 0.3 x 0.2 cm. Totally submitted in one cassette. C. Colon, Ascending, Biopsy Received in formalin are two pieces of ordoñez, soft tissue aggregating to 1.1 x 0.2 x 0.2 cm. Totally submitted in one cassette. D. Colon, Transverse, Biopsy Received in formalin are two pieces of ordoñez, soft tissue aggregating to 1.4 x 0.2 x 0.2 cm. Totally submitted in one cassette. E. Colon, Descending, Biopsy Received in formalin are multiple pieces of ordoñez, soft tissue aggregating to 1.7 x 0.3 x 0.2 cm. Totally submitted in one cassette. F. Colon, Sigmoid, Biopsy Received in formalin are multiple pieces of ordoñez, soft tissue aggregating to 1.2 x 0.2 x 0.2 cm. Totally submitted in one cassette. G. Rectum, Biopsy Received in formalin are multiple pieces of ordoñez, soft tissue aggregating to 1.6 x 0.2 x 0.2 cm. Totally submitted in one cassette. Gross examination performed at [facility], [address] [place] [address] JT 02/02/2024 10:31 PM Performed By: #### S ####[facility] LABCLIA [id number] [address] OF [place] 25(OH)D3 [facility]-ncon 2023 25-hydroxyvitamin D3 [Mass/Vol] 33.5 ng/mL Normal 31.0-80.0 [facility] Comment on above: Order Comment: Speci men Type: STOOL SPECIMEN [facility] Address: [address] [place] [address] Performed By: #### P ANCEF, 97927-9 #### [facility] LAB CLIA [id number] [address] [place] [address] OF [place] A-Tocopherol Vit E [facility]-n con 01-06-2024 Alpha tocopherol [Mass/Vol] 9.8 mg/L Normal 6.0-23.0 [facility] Comment on above: Order Comment: Speci men Type: STOOL SPECIMEN [facility] Address: [address] [place] [address] Performed By: #### P ANCEF, 59679-1 #### [facility] LAB CLIA [id number] [address] [place] [address] [place] Alpha tocopherol [Mass/Vol]o n 01-06-2024 Beta+gamma tocopherol [Mass/Vol] 0.8 mg/L Normal 0.3-3.2 [facility] Comment on above: Order Comment: Speci men Type: STOOL SPECIMEN [facility] Address: [address] [place] [address] Result Comment: This test was developed and its performance characteristics determined by [facility]'s Keith [facility] ([facility]). It has not been cleared or approved by the FDA. RT-[facility] is regulated under CLIA as qualified to perform high-complexity testing. This test is used for clinical purposes. It should not be regarded as investigational or for research. Performed By: #### P [facility], 12396-3 #### [facility] LAB CLIA [id number] [address] [place] [address] [place] [address] [place] [facility] HLA-DQ GENOTYPE on 01-06-2024 TONIO INTERPRETATION The HLA-DQ genotype of the patient is supportive of an increased risk of celiac disease. Normal [facility] Comment on above: Order Comment: Speci men Type: BLOOD SPECIMENOrdering Facility: [facility] Address: [address] [place] [address] Performed By: #### C GRACIE ####ALLOGEN LABORATORIESIA [id number] [address] OF [place] CELIAC CATEGORY Category 3 Normal [facility] Comment on above: Order Comment: Speci [facility] Type: BLOOD SPECIMENOrdering Facility: [facility] Address: [address] [place] [address] Result Comment: CATEGORY DQ HAPLOTYPE RELATIVE RISK Category 7 DQ2.2 AND DQ2.5 Extremely High Category 7 DQ2.5 AND DQ2.5 Extremely High Category 6 DQ2.2 AND DQA1*05, DQB1*03:01 Very High Category 5 DQ2.2 AND DQ8 Very High Category 5 DQ2.5 AND DQ8 Very High Category 4 DQ8 AND DQ8 High Category 3 DQ2.5 AND DQA1*05, DQB1*03:01 High Category 3 DQ2.5 AND DQA1*02:01, DQB1*03:03 High Category 3 DQ2.5 AND DQA1*03, DQB1*02 High Category 3 DQ2.5 AND OTHER LOW RISK ALLELE High Category 3 DQ2.2 AND DQA1*05, DQB1*03:03 High Category 2 DQ8 AND OTHER LOW RISK ALLELE Moderate Category 1 DQ2.2 AND OTHER LOW RISK ALLELE Low Category 0 NEGATIVE FOR DQ2.2 Negative Category 0 NEGATIVE FOR DQ2.5 Negative Category 0 NEGATIVE FOR DQ8 Negative DQ2.2 = DQA1*02:01, DQB1*02:02 DQ2.5 = DQA1*05, DQB1*02:01 DQ8 = DQA1*03, DQB1*03:02 The identification of one of these HLA-DQ genotypes is not, by itself, sufficient for the diagnosis of celiac disease, since both DQ2 and DQ8 are relatively common in the general population. The strongest reported HLA associations with celiac disease include DQ2 (DQ2.5 or DQA1*05-DQB1*02:01 & DQA2.2 or DQA1*02:01-DQB1*02:02) and DQ8 (DQA1*03:01/DQB1*03:02). This test is useful for family members of celiac patients and patients with negative serology results. This testing can rule out celiac disease with high negative predictive value (NPV) of 95-100% depending on the ethnic background. In cases of an ambiguous HLA allele assignment where multiple rare alleles cannot be excluded, the most common HLA allele is reported. References: 1. Marilu L, Johnny J, Melissa K, et al. Cost-effective HLA typing with tagging SNPs predicts celiac disease risk haplotypes in the Moroc[place], Cuban and Japanese populations. Immunogenetics. 2009 Jan;61(4):247-56. 2. Padmaja URRUTIA. Celiac disease: dissecting a complex inflammatory disorder. Shayla Rev Immunol. 2002 Jun;2(9):647-55. 3. Ruperto E, Tunde HS, Anisa CA, et al. Risk of pediatric celiac disease according to HLA haplotype and country. N Engl J Med. 2014 ;371(1):42-9. HLA typing performed by PCR-RSSOP and/or NGS. This test was developed and its performance characteristics determined by [facility]. The test has not been cleared or approved by the [place] FDA. However, FDA approval was not necessary since this lab is certified under CLIA for high complexity testing. Test performed by: [facility], [facility] [address] [place] [address]. CLIA [id number]. Performed By: #### C GRACIE ####GrabilityCLIA [id number] [employer] OF [facility] CELIAC RISK HAPLOTYPE Positive Normal [facility] Comment on above: Order Comment: Speci men Type: BLOOD SPECIMENOrdering Facility: [facility] Address: [address] [place] [address] Performed By: #### C GRACIE ####[facility]OG[facility] LABORATORIESCLIA [id number] [address] OF [place] HLA-DQA1 GENOTYPE HLA-DQA1*: 05, 01 Normal [facility] Comment on above: Order Comment: Speci men Type: BLOOD SPECIMENOrdering Facility: [facility] Address: [address] [place] [address] Performed By: #### C GRACIE ####[facility]OG[facility] LABORATORIESCLIA [id number] [place] [address] [place] HLA-DQB1 GENOTYPE HLA-DQB1*: 02:, 06 Normal [facility] Comment on above: Order Comment: Speci men Type: BLOOD SPECIMENOrdering Facility: [facility] Address: [address] [place] [address] Performed By: #### C GRACIE ####[facility] LABORATORIESCLIA [id number] [place] [address] [place] Cancer Ag19-9 SerPl-aCncon 0 01-06-2024 Cancer Ag 19-9 Qn 5.0 [arb'U]/mL Normal <36.0 [facility] Comment on above: Order Comment: Speci men Type: BLOOD SPECIMENOrdering Facility: [facility] Address: [address] [place] [address] Result Comment: [facility] er antigen 19-9 test is used as an aid in monitoring response to treatment or recurrence in patients with established pancreatic, hepatobiliary, or gastrointestinal malignancies. Clinical correlation is required. The CA 19-9 Antigen test was performed using the Conchita Huang Unicel DXI paramagnetic particle chemiluminescent immunoassay method. Results obtained with different assay methods or kits cannot be used interchangeably. Performed By: #### 2 4108-3 ####[facility] LABCLIA [id number] [address] STATES [place] Hepatic function 2000 panelo n 01-06-2024 Albumin [Mass/Vol] 4.3 g/dL Normal 3.9-4.9 [facility] Comment on above: Order Comment: Speci men Type: BLOOD SPECIMENOrdering Facility: [facility] Address: [address] [id number] Performed By: #### 2 4325-3 ####[facility] LABCLIA [id number] [place] [address] [place] ALP [Catalytic activity/Vol] 208 U/L High 38-113 [facility] Comment on above: Order Comment: Speci men Type: BLOOD SPECIMENOrdering Facility: [facility] Address: [address] [place] [address] Performed By: #### 2 4325-3 ####[facility] LABCLIA [id number] [place] [address] [place] ALT [Catalytic activity/Vol] 126 U/L High 10-54 [facility] Comment on above: Order Comment: Speci men Type: BLOOD SPECIMENOrdering Facility: [facility] Address: [address] [place] [address] Performed By: #### 2 4325-3 ####[facility] LABCLIA [id number] [place] [address] [place] AST [Catalytic activity/Vol] 58 U/L High 14-40 [facility] Comment on above: Order Comment: Speci men Type: BLOOD SPECIMENOrdering Facility: [facility] Address: [address] [place], [place] [address] Performed By: #### 2 4325-3 ####[facility] LABCLIA [id number] [place] [address] [place] Bilirubin [Mass/Vol] 0.4 mg/dL Normal 0.2-1.3 [facility] Comment on above: Order Comment: Speci men Type: BLOOD SPECIMENOrdering Facility: [facility] Address: [address] [place], [place] [address] Performed By: #### 2 4325-3 ####[facility] LABCLIA [id number] [place] [address] [place] Bilirubin.conjugate d [Mass/Vol] mg/dL Normal <0.2 [facility] Comment on above: Order Comment: Speci men Type: BLOOD SPECIMENOrdering Facility: [facility] Address: [address] [place] [address] Performed By: #### 2 4325-3 ####[facility] LABCLIA [id number] [place] [address] [place] Protein [Mass/Vol] 7.3 g/dL Normal 6.3-8.0 [facility] Comment on above: Order Comment: Speci men Type: BLOOD SPECIMENOrdering Facility: [facility] Address: [address] [place] [address] Performed By: #### 2 4325-3 ####[facility] LABCLIA [id number] [place] [address] [place] IgG4 Ser-mCncon 01-06-2024 IgG subclass 4 (S) [Mass/Vol] 28.4 mg/dL Normal 3.9-86.4 [facility] Comment on above: Order Comment: Speci men Type: BLOOD SPECIMEN [facility] Address: [address] [place] [address] Performed By: #### 2 469-5 #### [facility] LAB CLIA [id number] [address] [place] [address] [place] Vit A SerPl-mCncon 4 Retinol [Mass/Vol] 0.32 mg/L Normal 0.30-1.20 [facility] Comment on above: Order Comment: Speci men Type: STOOL SPECIMEN [facility] Address: [address] [place] [address] Result Comment: This test was developed and its performance characteristics determined by [facility]'s Keith JR[facility] ([facility]). It has not been cleared or approved by the FDA. RT-[facility] is regulated under CLIA as qualified to perform high-complexity testing. This test is used for clinical purposes. It should not be regarded as investigational or for research. Performed By: #### P [facility], 22990-9 #### [facility] LAB IA [id number] [address] [place] [address] [place] CNPKimberli 12-16-2023 CNPN Telephone (GASTA5) AYAZ LOPEZ ([id number]) 4 M Date Time Provider Department 12/16/23 SIVA ROME GASTA5 During your visit today, we recorded the following information about you: Nancy Morocho RN 12/16/2023 3:02 PM Signed Called patient and updated him on Dr Corley message. Verbalized understanding. 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 Let me know if he is ok with that, can do a virtual visit in the next few weeks Allergies As of Date: 12/16/2023 Noted Allergy Reaction OMNICEF (CEFDINIR) 03/29/2021 16 - Unknown Date Reviewed: 12/08/2023 Reviewed by: Eloina Almonte, DMITRYI - Fully Assessed Reason for Visit: Patient Update [1234] Prescriptions as of 12/16/2023 - cetirizine (ZYRTEC) 1 mg/mL syrup Take by mouth. - fluticasone (FLONASE) 50 mcg/actuation nasal spray - montelukast (SINGULAIR) 10 mg tablet - Melatonin 5 mg cap Take 5 mg by mouth. - triamcinolone acetonide (NASACORT AQ) 55 mcg nasal inhaler Use in the nose. - Ibuprofen 200 mg cap Take by mouth. Problem List As Of Date 12/16/2023 Noted Resolved Abnormal liver function tests [R79.89] 11/18/2023 Encounter Status:Closed by NANCY MOROCHO on 12/16/23 Normal [facility] Hepatic function 2000 panelo n 12-12-2023 Albumin [Mass/Vol] 4.4 g/dL Normal 3.9-4.9 [facility] Comment on above: Order Comment: Speci men Type: BLOOD SPECIMENOrdering Facility: [facility] Address: [address] [place] [address] Performed By: #### 2 4325-3 ####[facility] LABCLIA [id number] [place] [address] [place] ALP [Catalytic activity/Vol] 198 U/L High 38-113 [facility] Comment on above: Order Comment: Speci men Type: BLOOD SPECIMENOrdering Facility: [facility] Address: [address] [place] [address] Performed By: #### 2 4325-3 ####[facility] LABCLIA [id number] [place] [address] [place] ALT [Catalytic activity/Vol] 100 U/L High 10-54 [facility] Comment on above: Order Comment: Speci men Type: BLOOD SPECIMENOrdering Facility: [facility] Address: [address] [place] [address] Performed By: #### 2 4325-3 ####[facility] LABCLIA [id number] [place] [address] [place] AST [Catalytic activity/Vol] 51 U/L High 14-40 [facility] Comment on above: Order Comment: Speci men Type: BLOOD SPECIMENOrdering Facility: [facility] Address: [address] [place] [address] Performed By: #### 2 4325-3 ####[facility] LABCLIA [id number] [place] [address] [place] Bilirubin [Mass/Vol] 0.5 mg/dL Normal 0.2-1.3 [facility] Comment on above: Order Comment: Speci deion Type: BLOOD SPECIMENOrdering Facility: [facility] Address: [address] [place] [address] Performed By: #### 2 4325-3 ####[facility] LABCLIA [id number] [place] [address] [place] Bilirubin.conjugate d [Mass/Vol] mg/dL Normal <0.2 [facility] Comment on above: Order Comment: Speci men Type: BLOOD SPECIMENOrdering Facility: [facility] Address: [address] [place] [address] Performed By: #### 2 4325-3 ####[facility] LABCLIA [id number] [place] [address] [place] Protein [Mass/Vol] 7.4 g/dL Normal 6.3-8.0 [facility] Comment on above: Order Comment: Criseldai deion Type: BLOOD SPECIMENOrdering Facility: [facility] Address: [address] [place] [address] Performed By: #### 2 4325-3 ####[facility] LABCLIA [id number] [place] [address] [place] ANES PREOPon 12-08-2023 ANES PREOP HNO ID: [id number] Author: MARY NOEL MD Service: Radiology Author Type: Physician Type: Anesthesia PreOp Filed: 12/08/2023 08:38 Note Text: RADIOLOGY PROCEDURAL SEDATION HISTORY AND PHYSICAL EXAM SERVICE DATE: 12/08/2023 SERVICE TIME: 8:37 AM Subjective HPI: This is a 23 year old male who presents with abnormal LFTs PROCEDURE SCHEDULED: Procedure(s) with comments: PERCUTANEOUS NEEDLE BIOPSY OF LIVER (N/A) - LIVER BIOPSY RADIOLOGY ORDER PLACED: Radiology (1440h ago, onward) Start Ordered 11/18/23 0000 IMAGING GUIDED BIOPSY LIVER Routine 11/18/23 0818 PAST ANESTHESIA HISTORY: No history of adverse event PAST MEDICAL HISTORY Diagnosis Date Allergy PAST SURGICAL HISTORY Procedure Laterality Date ADENOIDECTOMY HX Prior to Admission medications as of 03/29/21 1531 Medication Sig Last Dose Taking cetirizine (ZYRTEC) 1 mg/mL syrup Take by mouth. fluticasone (FLONASE) 50 mcg/actuation nasal spray montelukast (SINGULAIR) 10 mg tablet Melatonin 5 mg cap Take 5 mg by mouth. triamcinolone acetonide (NASACORT AQ) 55 mcg nasal inhaler Use in the nose. Ibuprofen 200 mg cap Take by mouth. ALLERGIES Allergen Reactions Omnicef [Cefdinir] Unknown Objective PHYSICAL EXAM: The remainder of the physical exam is noncontributory. AIRWAY: Airway Visualization of Uvula: Yes Mouth opening greater than 2 fingerbreadths: Yes Neck Full Range of Motion: Yes LUNGS: Lungs clear to auscultation CARDIAC: Normal rate and rhythm Assessment/Plan ASA Class: ASA Class:: Patient with mild systemic disease Provisional Diagnosis/Treatment Plan: US guided random liver biopsy SEDATION GOAL: Moderate SIGNATURE: Mray Noel MD PATIENT NAME: Ayaz Lopez DATE: December 08, 2023 TIME: 8:36 AM Normal [facility] BRIEF OP NOTon 12-08-2023 BRIEF OP NOT HNO ID: [id number] Author: MARY NOEL MD Service: Radiology Author Type: Physician Type: Brief Op Note Filed: 12/08/2023 09:08 Note Text: BRIEF OPERATIVE / PROCEDURE NOTE LOG ID: [id number] SURGERY/PROCEDURE DATE: 12/08/2023 INCISION/PROCEDURE START TIME: 9:00 AM INCISION CLOSE/PROCEDURE END TIME: SURGEON(S)/PROCEDURALIST(S) AND BUSINESS SYSTEMS LEAD(S): Surgeon(s) and Role: * Mary Noel MD - Primary No Additional Staff SURGERY/PROCEDURE(S): US guided random liver biopsy ANESTHESIA: Procedural Sedation FINDINGS: [place] liver ESTIMATED BLOOD LOSS: 0 ml SPECIMENS: 2 cores COMPLICATIONS: None PRE-OP/PRE-PROCEDURE DIAGNOSIS: Abnormal LFTs POST-OP/POST-PROCEDURE DIAGNOSIS: Same as Preop SIGNATURE: Mary Noel MD PATIENT NAME: Ayaz Lopez DATE: December 08, 2023 TIME: 9:08 AM Normal [facility] NURSING PROGon 12-08-2023 NURSING PROG HNO ID: [id number] Author: SHANITA RUIZ RN Service: ? Author Type: Registered Nurse Type: Nursing Progress Note Filed: 12/09/2023 08:52 Note Text: Completed post procedure phone call. Ayaz is feeling well and has returned to his baseline diet and activity. Ayaz denies questions or concerns related to his liver biopsy appointment on 12/08/23 and had no surgical site concerns. Normal [facility] PT EDon 12-08-2023 PT ED HNO ID: [id number] Author: JULES ZUNIGA RN Service: ? Author Type: Registered Nurse Type: Patient Education Filed: 12/08/2023 09:00 Note Text: AMBULATORY PATIENT EDUCATION TOPIC: Survival Skills: HEALTH PROMOTION: Complication prevention READINESS TO LEARN COGNITIVE ABILITY: Alert and oriented MOTIVATION TO LEARN: Eager Interested FAMILY SUPPORT: High - Very involved in pt care INSTRUCTION PROVIDED TO: Patient PATIENT LEARNS BEST BY: Verbal Instruction FACTORS AFFECTING LEARNING: None PHYSICAL LIMITATIONS AFFECTING LEARNING: None LEARNING RESPONSE DIAGNOSIS: Abnormal LFT's METHOD OF INSTRUCTION: Verbal instruction PATIENT / FAMILY RESPONSE: Verbalizes understanding of: PRE-PROCEDURE INSTRUCTIONS-Correct action to take to follow pre-procedure instructions FOLLOW-UP PLAN: Complete - No need for follow-up SUPPLEMENTAL MATERIAL: None REFERRAL (RECOMMENDATION): None Electronically Signed By: Jules Zuniga RN In Department: [place] [address] Normal [facility] SURGICAL PATHOLOGYon 024 CASE REPORT Normal [facility] Comment on above: Order Comment: Speci men Type: TISSUE SPECIMENOrdering Facility: [facility] Address: [address] [place] [address] Result Comment: Surg [facility] Pathology Report Case: [id number] Authorizing Provider: Mary Noel MD Collected: 12/08/2023 09:02 AM Ordering Location: [place] [address] Received: 12/08/2023 04:54 PM Pathologist: Kristian Brady MD Specimen: LIVER BIOPSY Performed By: #### S ####[facility] LABCLIA [id number] [address] [place] CLINICAL HISTORY Abnormal LFTs. Suspe cted autoimmune hepatitis Normal [facility] Comment on above: Order Comment: Saji albarran Type: TISSUE SPECIMENOrdering Facility: [facility] Address: [address] [place] [address] Performed By: #### S ####[facility] LABCLIA [id number] [id number] [place] DIAGNOSIS COMMENT Normal [facility] Comment on above: Order Comment: Saji albarran Type: TISSUE SPECIMENOrdering Facility: [facility] Address: [address] [place] [address] Result Comment: The liver parenchymal architecture is preserved. The portal areas contain patchy mild lymphocytic inflammation and patchy mild bile ductular reaction. Scattered citizen [place] interlobular bile ducts show mild nuclear disarray. Concentric periductal fibrosis is observed surrounding multiple interlobular bile ducts. [place] interlobular bile ducts are identified in approximately 22 of 24 intact portal tracts. No duct centric inflammation, florid duct lesion, plasma cell rich inflammation, or significant interface activity is appreciated. Within the lobular parenchyma, patchy minimal mixed lymphocytic and histiocytic inflammation is seen. No significant hepatocellular apoptosis, necrosis, cholestasis, or steatosis is appreciated. A trichrome stain highlights periportal fibrosis and no bridging fibrosis. A PAS-D stain is negative for intrahepatocellular PAS positive globules. An iron stain is negative. A CK7 immunostain shows positive staining in bile ducts as well as patchy periportal hepatocytes. A copper stain shows positive staining in periportal hepatocytes. Overall, the liver shows features of chronic biliary obstruction. The patient's recent MRCP which demonstrated mild intrahepatic bile duct dilation and raised the possibility of early primary sclerosing cholangitis (PSC) is noted. The biopsy findings are compatible with PSC in the appropriate clinical and radiographic context. Correlation to exclude other causes of sclerosing cholangitis, mechanical biliary obstruction, and drug induced liver injury is required. Morphologic findings to suggest ongoing autoimmune hepatitis are not appreciated. Laboratory Developed Test (LDT) Disclaimer: Performance characteristics of immunohistochemical, immunofluorescent and chromogenic in-situ hybridization tests have been determined by the performing laboratory within [facility]???s [facility] ([facility], [facility], [facility], [facility], [facility], [facility], or [facility]) in a manner consistent with CLIA requirements. One or more of these tests have not been cleared or approved by the FDA. [facility] is regulated under CLIA as qualified to perform high-complexity testing. These tests are used for clinical purposes. They should not be regarded as investigational or for research. Positive and negative controls stain appropriately. Performed By: #### S ####[facility] LABIA [id number] [address] FINAL DIAGNOSIS Normal [facility] Comment on above: Order Comment: Spectucker albarran Type: TISSUE SPECIMENOrdering Facility: [facility] Address: [address] [place] [address] Result Comment: Celeste arcos, biopsy: -Liver with features of chronic biliary obstruction and periportal fibrosis, see comment. Performed By: #### S ####[facility] [id number] [address] FINAL PERFORMING LAB Normal [facility] Comment on above: Order Comment: Saji albarran Type: TISSUE SPECIMENOrdering Facility: [facility] Address: [address] [place] [address] Result Comment: Diag nostic interpretation performed at [facility], [address] [place], [place] [address]IA# [id number] [place] Teacher: Andrea Padron M.D. Performed By: #### S ####[facility] LABIA [id number] [address] [place] GROSS DESCRIPTION A. LIVER BIOPSY Normal [facility] Comment on above: Order Comment: Saji albarran Type: TISSUE SPECIMENOrdering Facility: [facility] Address: [address] [place] [address] Result Comment: Rece ived in formalin are two segments of cylindrical tissue aggregating to 2.8 x 0.2 x 0.1 cm, ordoñez and of a soft and friable consistency. Totally submitted in one cassette. Gross examination performed at [facility], [address], [place] [id number] KK December 08, 2023 8:48 PM Performed By: #### S ####[facility] LABCLIA [id number] [address] [id number] [id number] [facility] US BIOPSY LIVERon 12-08-2023 US BIOPSY LIVER * * *Final Report* * * DATE OF EXAM: Dec 08 2023 10:00AM [facility]73 - US BIOPSY LIVER / PROCEDURE REASON: R94.5-Abnormal results of liver function studies * * * * Physician Interpretation * * * * PROCEDURE PERFORMED: ULTRASOUND GUIDED BIOPSY PRE-PROCEDURE DIAGNOSIS: Abnormal liver enzymes POST-PROCEDURE DIAGNOSIS: Same as pre-procedure diagnosis INDICATION FOR PROCEDURE: Abnormal liver enzymes RELEVANT PRIOR STUDIES: US 12/05/2023 STAFF RADIOLOGIST: Dr. Noel BUSINESS SYSTEMS LEAD(S): None CONSENT: The risks, benefits, treatment options, potential complications and personnel involved were discussed with the patient. All questions were answered and consent was obtained. The patient indicated willingness to proceed. The staff physician personally verified consent. TIME OUT: A time out was performed immediately prior to procedure start with the nursing, anesthesia and interventional team, correctly identifying the patient name, date of , procedure, anatomy (including marking of site and side), patient position, procedure consent form, relevant diagnostic and radiology test results, antibiotic administration, safety precautions, and procedure-specific equipment needs. RESULT: PROCEDURE: After performing the time out, the liver was localized with ultrasound, images were obtained and archived. The right upper quadrant was prepped and draped in the usual sterile fashion. Under direct ultrasound guidance, 2 passes were made into the liver using an 18 gauge core biopsy needle. The procedure was performed by the: attending radiologist, without an assistant credit manager. The attending radiologist performed the following procedural activities: Entire procedure ANESTHESIA/SEDATION: Conscious sedation: Versed: 1.0 mg IV Fentanyl: 50 mcg IV Local anesthesia: Lidocaine 1%: 10 cc Vital signs were monitored by the nurse. START TIME/TIMEOUT TIME: 0853 hours END TIME: 0905 hours INTRA-SERVICE (SEDATION) TIME: 12 minutes PATIENT MONITORING: The staff physician personally supervised and directed an independent trained observer who assisted in monitoring the patient?s level of consciousness and physiological status throughout the procedure. SIGNIFICANT COMPLICATIONS: None MINOR COMPLICATIONS: None SIGN-OUT DISCUSSION: Completed ESTIMATED BLOOD LOSS: None SPECIMENS: 2 core biopsy specimens were placed in formalin and sent to surgical pathology BIOPSY DEVICE: 18 gauge Biopince core biopsy needle. IMPRESSION: Ultrasound guided biopsy as described. Neighborhood Coordinator: [facility] Transcribe Date/Time: Dec 08 2023 12:30P Dictated by : MARY NOEL MD This examination was interpreted and the report reviewed and electronically signed by: MARY NEOL MD on Dec 08 2023 12:33PM EST [id number] Normal [facility] MR Biliary ducts and Pancrea tic duct WO and W contrast Joanne 12-05-2023 IMPRESSION: Mild intrahepatic biliary duct dilation with queried focal areas of central narrowing near the confluence. Subtle peribiliary enhancement suggestive of mild inflammation. No overt beaded appearance, although findings could relate to early primary sclerosing cholangitis in the appropriate clinical setting. Normal liver morphology. Neighborhood Coordinator: [facility] Transcribe Date/Time: Dec 05 2023 10:53A Dictated by : PANCHO HAIRSTON MD This examination was interpreted and the report reviewed and electronically signed by: AYAZ JOAQUIN MD on Dec 05 2023 11:57AM EST DIVISION OF RADIOLOGY * * *Final Report* * * DATE OF EXAM: Dec 05 2023 10:14AM M2 0730 - MRI PANC/EPIFANIO WO/W IVCON / PROCEDURE REASON: Abnormal results of liver function studies * * * * Physician Interpretation * * * * MRI ABDOMEN (PANCREAS-BILIARY) MRI ABDOMEN WITHOUT AND WITH IV CONTRAST CLINICAL HISTORY: Elevated LFTs and positive autoimmune serology. TECHNIQUE: Magnet: 1.5T scanner. Multiplanar MRI of the abdomen with multiple sequences, performed before and after intravenous contrast. Additional MR cholangiopancreatography sequences were performed. Contrast: IV: 15 ml of Dotarem Oral: None COMPARISON: CT abdomen/pelvis 12/17/2016 RESULT: Liver: Normal morphology. No hepatic steatosis. No mass. Biliary: Mildly intrahepatic biliary duct dilation with questionable areas of focal narrowing of the central ducts near the confluence (for example, 5:23-24 on the right and 5:20 on the left). No overt beaded appearance of the biliary ducts. Subtle peribiliary enhancement most prominently in segments /VII (33:31). No extrahepatic duct dilation. No biliary filling defect. Gallbladder is normal. Spleen: No mass. No splenomegaly. Pancreas: No mass or duct dilation. Adrenals: No mass. Kidneys: No solid or cystic mass. No hydronephrosis. GI: No dilated bowel or wall thickening along imaged segments. Lymph nodes: No abdominal lymphadenopathy. Mesentery / Peritoneum / Retroperitoneum: No ascites or mass. Vasculature: - Abdominal aorta: No aneurysm. - Celiac and SMA: Patent without stenosis. - Portal venous system (SMV, splenic vein, portal vein and branches): Patent. - Hepatic veins and IVC: Patent. Bones/Soft Tissues: No suspicious lesion. Lower chest: Unremarkable. DIVISION OF RADIOLOGY Provider, [facility] - 12/05/2023 * * *Final Report* * * DATE OF EXAM: Dec 05 2023 10:14AM M2M 0730 - MRI PANC/EPIFANIO WO/W IVCON / PROCEDURE REASON: Abnormal results of liver function studies * * * * Physician Interpretation * * * * MRI ABDOMEN (PANCREAS-BILIARY) MRI ABDOMEN WITHOUT AND WITH IV CONTRAST CLINICAL HISTORY: Elevated LFTs and positive autoimmune serology. TECHNIQUE: Magnet: 1.5T scanner. Multiplanar MRI of the abdomen with multiple sequences, performed before and after intravenous contrast. Additional MR cholangiopancreatography sequences were performed. Contrast: IV: 15 ml of Dotarem Oral: None COMPARISON: CT abdomen/pelvis 12/17/2016 RESULT: Liver: Normal morphology. No hepatic steatosis. No mass. Biliary: Mildly intrahepatic biliary duct dilation with questionable areas of focal narrowing of the central ducts near the confluence (for example, 5:23-24 on the right and 5:20 on the left). No overt beaded appearance of the biliary ducts. Subtle peribiliary enhancement most prominently in segments /VII (33:31). No extrahepatic duct dilation. No biliary filling defect. Gallbladder is normal. Spleen: No mass. No splenomegaly. Pancreas: No mass or duct dilation. Adrenals: No mass. Kidneys: No solid or cystic mass. No hydronephrosis. GI: No dilated bowel or wall thickening along imaged segments. Lymph nodes: No abdominal lymphadenopathy. Mesentery / Peritoneum / Retroperitoneum: No ascites or mass. Vasculature: - Abdominal aorta: No aneurysm. - Celiac and SMA: Patent without stenosis. - Portal venous system (SMV, splenic vein, portal vein and branches): Patent. - Hepatic veins and IVC: Patent. Bones/Soft Tissues: No suspicious lesion. Lower chest: Unremarkable. IMPRESSION IMPRESSION: Mild intrahepatic biliary duct dilation with queried focal areas of central narrowing near the confluence. Subtle peribiliary enhancement suggestive of mild inflammation. No overt beaded appearance, although findings could relate to early primary sclerosing cholangitis in the appropriate clinical setting. Normal liver morphology. Neighborhood Coordinator: [facility] Transcribe Date/Time: Dec 05 2023 10:53A Dictated by : PANCHO HAIRSTON MD This examination was interpreted and the report reviewed and electronically signed by: AYAZ JOAQUIN MD on Dec 05 2023 11:57AM EST [facility] Radiology Study observation (narrative) [facility] MR Biliary ducts and Pancrea tic duct WO and W contrast IVOrdered By: [facility] Provider on 12-05-2023 [facility] MRI PANC/EPIFANIO WO/W IVCONon MRI PANC/EPIFANIO WO/W IVCON * * *Final Report* * * DATE OF EXAM: Dec 05 2023 10:14AM M2M 0730 - MRI PANC/EPIFANIO WO/W IVCON / PROCEDURE REASON: Abnormal results of liver function studies * * * * Physician Interpretation * * * * MRI ABDOMEN (PANCREAS-BILIARY) MRI ABDOMEN WITHOUT AND WITH IV CONTRAST CLINICAL HISTORY: Elevated LFTs and positive autoimmune serology. TECHNIQUE: Magnet: 1.5T scanner. Multiplanar MRI of the abdomen with multiple sequences, performed before and after intravenous contrast. Additional MR cholangiopancreatography sequences were performed. Contrast: IV: 15 ml of Dotarem Oral: None COMPARISON: CT abdomen/pelvis 12/17/2016 RESULT: Liver: Normal morphology. No hepatic steatosis. No mass. Biliary: Mildly intrahepatic biliary duct dilation with questionable areas of focal narrowing of the central ducts near the confluence (for example, 5:23-24 on the right and 5:20 on the left). No overt beaded appearance of the biliary ducts. Subtle peribiliary enhancement most prominently in segments /VII (33:31). No extrahepatic duct dilation. No biliary filling defect. Gallbladder is normal. Spleen: No mass. No splenomegaly. Pancreas: No mass or duct dilation. Adrenals: No mass. Kidneys: No solid or cystic mass. No hydronephrosis. GI: No dilated bowel or wall thickening along imaged segments. Lymph nodes: No abdominal lymphadenopathy. Mesentery / Peritoneum / Retroperitoneum: No ascites or mass. Vasculature: - Abdominal aorta: No aneurysm. - Celiac and SMA: Patent without stenosis. - Portal venous system (SMV, splenic vein, portal vein and branches): Patent. - Hepatic veins and IVC: Patent. Bones/Soft Tissues: No suspicious lesion. Lower chest: Unremarkable. IMPRESSION: Mild intrahepatic biliary duct dilation with queried focal areas of central narrowing near the confluence. Subtle peribiliary enhancement suggestive of mild inflammation. No overt beaded appearance, although findings could relate to early primary sclerosing cholangitis in the appropriate clinical setting. Normal liver morphology. Neighborhood Coordinator: [facility] Transcribe Date/Time: Dec 05 2023 10:53A Dictated by : PANCHO HAIRSTON MD This examination was interpreted and the report reviewed and electronically signed by: AYAZ JOAQUIN MD on Dec 05 2023 11:57AM EST [id number] Normal [facility] US ABD RIGHT UPPER QUADRANTo n 12-05-2023 US ABD RIGHT UPPER QUADRANT * * *Final Report* * * DATE OF EXAM: Dec 05 2023 8:48AM M2U 1032 - US ABD RIGHT UPPER QUADRANT / PROCEDURE REASON: Abnormal results of liver function studies * * * * Physician Interpretation * * * * EXAMINATION: RIGHT UPPER QUADRANT ULTRASOUND CLINICAL HISTORY: Abnormal LFTs TECHNIQUE: Sonography of the right upper quadrant was performed. Images were obtained and stored in a permanent archive. MQ: URUQ_2 COMPARISON: CT 12/17/2016 RESULT: Pancreas: Obscured by overlying bowel gas. Liver: Echotexture: Normal, homogeneous. Echogenicity: Normal Surface contour: Smooth Lesions: None. Biliary: No intrahepatic biliary duct dilation. CBD: 0.6 cm at the hilum. Gallbladder: Normal caliber -Contents: No cholelithiasis -Wall: Normal -Other: No pericholecystic fluid. Right Kidney: No hydronephrosis. Ascites: None. IMPRESSION: Normal sonographic appearance of the right upper quadrant. Neighborhood Coordinator: [facility] Transcribe Date/Time: Dec 05 2023 9:09A Dictated by : MARY NOEL MD This examination was interpreted and the report reviewed and electronically signed by: MARY NOEL MD on Dec 05 2023 9:22AM EST [id number] Normal [facility] US Abdomen RUQon 12-05-2023 IMPRESSION: Normal sonographic appearance of the right upper quadrant. Neighborhood Coordinator: [facility] Transcribe Date/Time: Dec 05 2023 9:09A Dictated by : MARY NOEL MD This examination was interpreted and the report reviewed and electronically signed by: MARY NOEL MD on Dec 05 2023 9:22AM EST DIVISION OF RADIOLOGY * * *Final Report* * * DATE OF EXAM: Dec 05 2023 8:48AM M2U 1032 - US ABD RIGHT UPPER QUADRANT / PROCEDURE REASON: Abnormal results of liver function studies * * * * Physician Interpretation * * * * EXAMINATION: RIGHT UPPER QUADRANT ULTRASOUND CLINICAL HISTORY: Abnormal LFTs TECHNIQUE: Sonography of the right upper quadrant was performed. Images were obtained and stored in a permanent archive. MQ: URUQ_2 COMPARISON: CT 12/17/2016 RESULT: Pancreas: Obscured by overlying bowel gas. Liver: Echotexture: Normal, homogeneous. Echogenicity: Normal Surface contour: Smooth Lesions: None. Biliary: No intrahepatic biliary duct dilation. CBD: 0.6 cm at the hilum. Gallbladder: Normal caliber -Contents: No cholelithiasis -Wall: Normal -Other: No pericholecystic fluid. Right Kidney: No hydronephrosis. Ascites: None. DIVISION OF RADIOLOGY Provider, [facility] - 12/05/2023 * * *Final Report* * * DATE OF EXAM: Dec 05 2023 8:48AM M2U 1032 - US ABD RIGHT UPPER QUADRANT / PROCEDURE REASON: Abnormal results of liver function studies * * * * Physician Interpretation * * * * EXAMINATION: RIGHT UPPER QUADRANT ULTRASOUND CLINICAL HISTORY: Abnormal LFTs TECHNIQUE: Sonography of the right upper quadrant was performed. Images were obtained and stored in a permanent archive. MQ: URUQ_2 COMPARISON: CT 12/17/2016 RESULT: Pancreas: Obscured by overlying bowel gas. Liver: Echotexture: Normal, homogeneous. Echogenicity: Normal Surface contour: Smooth Lesions: None. Biliary: No intrahepatic biliary duct dilation. CBD: 0.6 cm at the hilum. Gallbladder: Normal caliber -Contents: No cholelithiasis -Wall: Normal -Other: No pericholecystic fluid. Right Kidney: No hydronephrosis. Ascites: None. IMPRESSION IMPRESSION: Normal sonographic appearance of the right upper quadrant. Neighborhood Coordinator: [facility] Transcribe Date/Time: Dec 05 2023 9:09A Dictated by : MARY NOEL MD This examination was interpreted and the report reviewed and electronically signed by: MARY NOEL MD on Dec 05 2023 9:22AM EST [facility] Radiology Study observation (narrative) [facility] US Abdomen RUQOrdered By: Shannon f Provider on 12-05-2023 [facility] NURSING PROGon 12-01-2023 NURSING PROG HNO ID: [id number] Author: MARIIA BALLESTEROS, RN Service: Radiology Author Type: Registered Nurse Type: Nursing Progress Note Filed: 12/01/2023 12:43 Note Text: Pre-procedure phone call: ? Contacted Ayaz Lopez and confirmed appointment for US guided Liver biopsy scheduled on 12/08/23, at [address] I will be providing you with important instructions for your procedure, if not followed your procedure may need to be cancelled or rescheduled. Arrival: Arrive to desk B-1 ([facility]) by 7:30 am and check in for your procedure. Please bring your Photo ID and Insurance Card. A general consent may need to be signed. Labs: Labs completed on 11/18/23 Diet: Do not eat any solid food after 12 Midnight the night before your procedure. You may drink clear liquids until 7:00 AM the day of your procedure, which means black coffee or water only ? Medications: No medication restrictions, you may take any medications you are due for the morning of your procedure with sips of water. ? Metal Can Inspector/Transportation: You will need a responsible adult to accompany you to and from the procedure. Your milk pickup truck driver is required to stay with you until you are taken into the Procedure room. Recovery expectations: You will be in the recovery room post procedure for a minimum of 2 Hours. Written instructions provided to patient via [employer]? If you have any questions please don't hesitate to call us at [phone] Normal [facility] BLOOD TB SCREENon 11-18-2023 M. tuberculosis tuberculin stim IFN-g Ql (Bld) Negative Normal [facility] Comment on above: Order Comment: Criseldai deion Type: BLOOD SPECIMENOrdering Facility: [facility] Address: [address] [place] [address] Performed By: #### I NFTBP ####[facility] LABIA [id number] [place] [address] [place] MITOGEN MINUS NIL >10.00 Normal >=0.50 [facility] Comment on above: Order Comment: Speci men Type: BLOOD SPECIMENOrdering Facility: [facility] Address: [address] [place] [address] Performed By: #### I NFTBP ####[facility] [id number] [address] TB GAMMA INTERPRETATION Infection with M. tuberculosis complex is unlikely. If latent tuberculosis infection is highly suspected, a negative result does not rule out the infection. Specimens from immunocompromised patients and those <5 years of age may show false negative results. In case of a contact investigation, please repeat 8-12 weeks after a known exposure. Normal [facility] Comment on above: Order Comment: Saji albarran Type: BLOOD SPECIMENOrdering Facility: [facility] Address: [address] [place] [address] Performed By: #### I NFTBP ####[facility] [id number] [address] STATES OF [facility] TB NIL <0.00 Normal <=8.00 [facility] Comment on above: Order Comment: Criseldai men Type: BLOOD SPECIMENOrdering Facility: [facility] Address: [address] [place] [address] Performed By: #### I NFTBP ####[facility] LABIA [id number] [place] [address] [place] TB1 AG MINUS NIL <0.00 Normal <0.35 [facility] Comment on above: Order Comment: Speci men Type: BLOOD SPECIMENOrdering Facility: [facility] Address: [address] [place] [address] Performed By: #### I NFTBP ####[facility] LABCLIA [id number] [place] [id number] [place] TB2 AG MINUS NIL 0.00 IU/mL Normal <0.35 [facility] Comment on above: Order Comment: Speci men Type: BLOOD SPECIMENOrdering Facility: [facility] Address: [address] [place] [address] Performed By: #### I NFTBP ####[facility] LABIA [id number] [place] [address] [place] Basic metabolic 2000 panelon 11-18-2023 Anion gap [Moles/Vol] 8 mmol/L Low 9-18 [facility] Comment on above: Order Comment: Speci men Type: BLOOD SPECIMENOrdering Facility: [facility] Address: [address] [place] [address] Performed By: #### 2 4325-3, 3016-3, 86206-4 ####[facility] LABIA [id number] [place] [address] [place] Calcium [Mass/Vol] 9.3 mg/dL Normal 8.5-10.2 [facility] Comment on above: Order Comment: Speci men Type: BLOOD SPECIMENOrdering Facility: [facility] Address: [address] [place] [address] Performed By: #### 2 4325-3, 3016-3, 47430-5 ####[facility] LABIA [id number] [place] [address] [place] Chloride [Moles/Vol] 104 mmol/L Normal 97-105 [facility] Comment on above: Order Comment: Speci men Type: BLOOD SPECIMENOrdering Facility: [facility] Address: [address] [place] [address] Performed By: #### 2 4325-3, 3016-3, 36012-2 ####[facility] LABIA [id number] [place] [address] [place] CO2 [Moles/Vol] 28 mmol/L Normal 22-30 [facility] Comment on above: Order Comment: Speci men Type: BLOOD SPECIMENOrdering Facility: [facility] Address: [address] [place] [address] Performed By: #### 2 4325-3, 6-3, 48785-6 ####[facility] LABIA [id number] [place] [address] [place] Creatinine [Mass/Vol] 0.70 mg/dL Low 0.73-1.22 [facility] Comment on above: Order Comment: Speci men Type: BLOOD SPECIMENOrdering Facility: [facility] Address: [address] [place] [address] Performed By: #### 2 4325-3, 3015-3, 22691-1 ####[facility] LABIA [id number] [place] [address] [place] Creatinine and Glomerular filtration rate.predicted panel (S/P/Bld) 135 mL/min/1.73m??? Normal >=60 [facility] Comment on above: Order Comment: Speci men Type: BLOOD SPECIMENOrdering Facility: [facility] Address: [address] [place] [address] Result Comment: Angela mated Glomerular Filtration Rate (eGFR) is calculated using the 2020 CKD-EPI creatinine equation. This equation utilizes serum creatinine, sex, and age as parameters. The creatinine assay has traceable calibration to isotope dilution-mass spectrometry. Refer to KDIGO guidelines for clinical interpretation. In patients with unstable renal function, e.g. those with acute kidney injury, the eGFR may not accurately reflect actual GFR. Performed By: #### 2 4325-3, 3016-3, 73495-1 ####[facility] LABCLIA [id number] [address] [address] [place] Glucose [Mass/Vol] 94 mg/dL Normal 74-99 [facility] Comment on above: Order Comment: Speci men Type: BLOOD SPECIMENOrdering Facility: [facility] Address: [address] [place] [address] Result Comment: The [place] [employer] (ADA) provides guidance for cutoff values for fasting glucose and random glucose. The ADA defines fasting as no caloric intake for at least 8 hours. Fasting plasma glucose results between 100 to 125 mg/dL indicate increased risk for diabetes (prediabetes). Fasting plasma glucose results greater than or equal to 126 mg/dL meet the criteria for diagnosis of diabetes. In the absence of unequivocal hyperglycemia, results should be confirmed by repeat testing. In a patient with classic symptoms of hyperglycemia or hyperglycemic crisis, random plasma glucose results greater than or equal to 200 mg/dL meet the criteria for diagnosis of diabetes. Reference: Standards of Medical Care in Diabetes 2016, [place] [employer]. Diabetes Care. 2016.39(Suppl 1). Performed By: #### 2 4325-3, 3016-3, 08112-9 ####[facility] LABIA [id number] [place] [address] [place] Potassium [Moles/Vol] 3.4 mmol/L Low 3.7-5.1 [facility] Comment on above: Order Comment: Speci men Type: BLOOD SPECIMENOrdering Facility: [facility] Address: [address] [place] [address] Performed By: #### 2 4325-3, 3016-3, 45693-5 ####[facility] LABIA [id number] [place] [address] [place] Sodium [Moles/Vol] 140 mmol/L Normal 136-144 [facility] Comment on above: Order Comment: Speci men Type: BLOOD SPECIMENOrdering Facility: [facility] Address: [address] [place] [address] Performed By: #### 2 4325-3, 3016-3, 45751-7 ####[facility] LABCLIA [id number] [place] [address] [place] Urea nitrogen [Mass/Vol] 7 mg/dL Low 9-24 [facility] Comment on above: Order Comment: Speci men Type: BLOOD SPECIMENOrdering Facility: [facility] Address: [address] [place] [address] Performed By: #### 2 4325-3, 3016-3, 23761-6 ####[facility] LABCLIA [id number] [place] [address] [place] CBC W Auto Differential pane l (Bld)on 11-18-2023 Basophils (Bld) [#/Vol] 0.10 10*3/uL Normal <0.11 [facility] Comment on above: Order Comment: Speci men Type: BLOOD SPECIMENOrdering Facility: [facility] Address: [address] [place] [address] Performed By: #### 5 7021-8 ####[facility] LABCLIA [id number] [place] [address] [place] Basophils/100 WBC (Bld) 1.7 % Normal [facility] Comment on above: Order Comment: Speci men Type: BLOOD SPECIMENOrdering Facility: [facility] Address: [address] [place] [address] Performed By: #### 5 7021-8 ####[facility] LABCLIA [id number] [place] [address] [place] Differential cell count method Nom (Bld) Auto Normal [facility] Comment on above: Order Comment: Speci men Type: BLOOD SPECIMENOrdering Facility: [facility] Address: [address] [place] [address] Performed By: #### 5 7021-8 ####[facility] LABCLIA [id number] [place] [address] [place] Eosinophils (Bld) [#/Vol] 0.75 10*3/uL High <0.46 [facility] Comment on above: Order Comment: Speci men Type: BLOOD SPECIMENOrdering Facility: [facility] Address: [address] [place] [address] Performed By: #### 5 7021-8 ####[facility] LABCLIA [id number] [place] [address] [place] Eosinophils/100 WBC (Bld) 13.1 % Normal [facility] Comment on above: Order Comment: Speci men Type: BLOOD SPECIMENOrdering Facility: [facility] Address: [address] [place] [address] Performed By: #### 5 7021-8 ####[facility] LABCLIA [id number] [place] [address] [place] Erythrocyte distribution width (RBC) [Ratio] 12.8 % Normal 11.5-15.0 [facility] Comment on above: Order Comment: Speci men Type: BLOOD SPECIMENOrdering Facility: [facility] Address: [address] [place] [address] Performed By: #### 5 7021-8 ####[facility] LABCLIA [id number] [address] [place] Hematocrit (Bld) [Volume fraction] 42.6 % Normal 39.0-51.0 [facility] Comment on above: Order Comment: Speci men Type: BLOOD SPECIMENOrdering Facility: [facility] Address: [address] [place] [address] Performed By: #### 5 7021-8 ####[facility] LABCLIA [id number] [place] [address] [place] Hemoglobin (Bld) [Mass/Vol] 14.2 g/dL Normal 13.0-17.0 [facility] Comment on above: Order Comment: Speci men Type: BLOOD SPECIMENOrdering Facility: [facility] Address: [address] [place] [address] Performed By: #### 5 7021-8 ####[facility] LABCLIA [id number] [place] [address] [place] Immature granulocytes (Bld) [#/Vol] 10*3/uL Normal <0.10 [facility] Comment on above: Order Comment: Speci men Type: BLOOD SPECIMENOrdering Facility: [facility] Address: [address] [place] [address] Performed By: #### 5 7021-8 ####[facility] LABCLIA [id number] [place] [address] [place] Immature granulocytes/100 WBC (Bld) 0.2 % Normal [facility] Comment on above: Order Comment: Speci men Type: BLOOD SPECIMENOrdering Facility: [facility] Address: [address] [place] [address] Performed By: #### 5 7021-8 ####[facility] LABCLIA [id number] [place] [address] [place] Lymphocytes (Bld) [#/Vol] 1.89 10*3/uL Normal 1.00-4.00 [facility] Comment on above: Order Comment: Speci men Type: BLOOD SPECIMENOrdering Facility: [facility] Address: [address] [place] [address] Performed By: #### 5 7021-8 ####[facility] LABCLIA [id number] [place] [address] [place] Lymphocytes/100 WBC (Bld) 33.0 % Normal [facility] Comment on above: Order Comment: Speci men Type: BLOOD SPECIMENOrdering Facility: [facility] Address: [address] [place] [address] Performed By: #### 5 7021-8 ####[facility] LABCLIA [id number] [place] [address] [place] MCH (RBC) [Entitic mass] 29.9 pg Normal 26.0-34.0 [facility] Comment on above: Order Comment: Speci men Type: BLOOD SPECIMENOrdering Facility: [facility] Address: [address] [place] [address] Performed By: #### 5 7021-8 ####[facility] LABCLIA [id number] [place] [address] [place] MCHC (RBC) [Mass/Vol] 33.3 g/dL Normal 30.5-36.0 [facility] Comment on above: Order Comment: Speci men Type: BLOOD SPECIMENOrdering Facility: [facility] Address: [address] [place] [address] Performed By: #### 5 7021-8 ####[facility] LABCLIA [id number] [place] [address] [place] MCV (RBC) [Entitic vol] 89.7 fL Normal 80.0-100.0 [facility] Comment on above: Order Comment: Speci men Type: BLOOD SPECIMENOrdering Facility: [facility] Address: [address] [place] [address] Performed By: #### 5 7021-8 ####[facility] LABIA [id number] [place] [address] [place] Monocytes (Bld) [#/Vol] 0.38 10*3/uL Normal <0.87 [facility] Comment on above: Order Comment: Speci men Type: BLOOD SPECIMENOrdering Facility: [facility] Address: [address] [place] [address] Performed By: #### 5 7021-8 ####[facility] LABCLIA [id number] [place] [address] [place] Monocytes/100 WBC (Bld) 6.6 % Normal [facility] Comment on above: Order Comment: Speci men Type: BLOOD SPECIMENOrdering Facility: [facility] Address: [address] [place] [address] Performed By: #### 5 7021-8 ####[facility] LABCLIA [id number] [place] [address] [place] Neutrophils (Bld) [#/Vol] 2.60 10*3/uL Normal 1.45-7.50 [facility] Comment on above: Order Comment: Speci men Type: BLOOD SPECIMENOrdering Facility: [facility] Address: [address] [place] [address] Performed By: #### 5 7021-8 ####[facility] LABCLIA [id number] [place] [address] [place] Neutrophils/100 WBC (Bld) 45.4 % Normal [facility] Comment on above: Order Comment: Speci men Type: BLOOD SPECIMENOrdering Facility: [facility] Address: [address] [place] [address] Performed By: #### 5 7021-8 ####[facility] LABCLIA [id number] [place] [address] [place] Nucleated RBC (Bld) [#/Vol] 10*3/uL Normal <0.01 [facility] Comment on above: Order Comment: Speci men Type: BLOOD SPECIMENOrdering Facility: [facility] Address: [address] [place] [address] Performed By: #### 5 7021-8 ####[facility] LABCLIA [id number] [place] [address] [place] Nucleated RBC/100 WBC (Bld) [Ratio] 0.0 /100 WBC Normal [facility] Comment on above: Order Comment: Speci men Type: BLOOD SPECIMENOrdering Facility: [facility] Address: [address] [place] [address] Performed By: #### 5 7021-8 ####[facility] LABCLIA [id number] [place] [address] [place] Platelet mean volume (Bld) [Entitic vol] 10.9 fL Normal 9.0-12.7 [facility] Comment on above: Order Comment: Speci men Type: BLOOD SPECIMENOrdering Facility: [facility] Address: [address] [place] [address] Performed By: #### 5 7021-8 ####[facility] LABCLIA [id number] [place] [address] [place] Platelets (Bld) [#/Vol] 241 10*3/uL Normal 150-400 [facility] Comment on above: Order Comment: Speci men Type: BLOOD SPECIMENOrdering Facility: [facility] Address: [address] [place] [address] Performed By: #### 5 7021-8 ####[facility] LABCLIA [id number] [place] [address] [place] RBC (Bld) [#/Vol] 4.75 10*6/uL Normal 4.20-6.00 [facility] Comment on above: Order Comment: Speci men Type: BLOOD SPECIMENOrdering Facility: [facility] Address: [address] [place] [address] Performed By: #### 5 7021-8 ####[facility] LABCLIA [id number] [place] [address] [place] WBC (Bld) [#/Vol] 5.73 10*3/uL Normal 3.70-11.00 [facility] Comment on above: Order Comment: Speci men Type: BLOOD SPECIMENOrdering Facility: [facility] Address: [address] [place] [address] Performed By: #### 5 7021-8 ####[facility] LABCLIA [id number] [place] [address] [place] CMV IgG Qnon 11-18-2023 CMV IGG QUAL Negative Normal Negative [facility] Comment on above: Order Comment: Saji albarran Type: BLOOD SPECIMENOrdering Facility: [facility] Address: [address] [place] [address] Result Comment: No s erological evidence of past exposure to Cytomegalovirus. Cannot exclude recent infection if the specimen collected within 4-6 weeks after infection. Performed By: #### 7 852-7, 7853-5 ####[facility] LABCLIA [id number] [place] [address] [place] CMV IgG SerPl-aCncon 024 CMV IgG Qn <0.20 Normal [facility] Comment on above: Order Comment: Saji albarran Type: BLOOD SPECIMENOrdering Facility: [facility] Address: [address] [place] [address] Result Comment: The magnitude of the measured result is not indicative of the amount of antibody present. U/mL values are interpreted as follows: Negative <0.6 Equivocal 0.6 to <0.70 Positive >=0.70 Performed By: #### 7 852-7, 7853-5 ####[facility] LABCLIA [id number] [place] [address] [place] CMV IgM Qnon 11-18-2023 CMV IGM, QUAL Negative Normal Negative [facility] Comment on above: Order Comment: Saji albarran Type: BLOOD SPECIMENOrdering Facility: [facility] Address: [address] [place] [address] Result Comment: No s erological evidence of recent exposure to Cytomegalovirus. Performed By: #### 7 852-7, 7853-5 ####[facility] LABCLIA [id number] [place] [address] [place] CNPNon 11-18-2023 CNPN Telephone (GASTA5) AYAZ LOPEZ ([id number]) 4 M Date Time Provider Department 11/18/23 SIVA ROME GASTA5 During your visit today, we recorded the following information about you: Nancy Morocho, RN 11/18/2023 12:18 PM Signed STAFF-INITIATED RADIOLOGY BIOPSY / ASPIRATION / DRAIN REQUEST FORM Date: November 18, 2023 Time: 12:15 PM PATIENT CONTACT INFORMATION: Best way to reach patient [phone] SCHEDULING: WERO (Specific requests must be greater than 10 business days from the date of request) RADIOLOGY SERVICE GROUP (Abdominal / Thoracic / MSK / Neuro): Abdominal- Biopsy Site: Liver - Random SPECIFICS OF THE REQUEST (Please be as detailed as possible): BIOPSY of an ORGAN - LIVER: Random liver biopsy (evaluate for diffuse disease) SPECIAL REQUESTS: TISSUE SAMPLE, LABWORK: Routine Evaluation MEDICAL DIAGNOSIS: Abnormal liver function results (i.e. Known primary cancer or suspected diagnosis) IMAGING STUDY AND DATE THAT IS THE BASIS OF THE REQUEST: (Note: Requests for random organ biopsies, specifically liver and kidney random biopsies do not need imaging.) IMAGING: (If the imaging was obtained outside the [facility] system, PLEASE upload for review prior to approval.) Note to all persons requesting biopsies: All biopsy requests will be scheduled as quickly as possible, based on the clinical urgency, availability of appointment times, the need to hold anti-thrombolytic therapy (aspirin and other blood thinners) and the patient?s schedule, including the need for an available milk pickup truck driver. If a percutaneous biopsy or drainage is not felt to be safe or an alternative method for establishing a diagnosis is possible, this will be discussed directly with the requesting physician. Shanita Spears LPN 11/18/2023 12:23 PM Signed BX. COORDINATOR INFORMATION LAB RESULTS: No results found for: INR No results found for: APTT Platelet Count (X10(3)) Date Value 12/15/2016 244 Current Outpatient Medications Medication Sig iv contrast (will be provided with radiology test) MRI PANC/EPIFANIO Inject, intravenously, once for 1 dose. No IV access, insert saline lock prior to the beginning of sedation, infusion, injection of imaging exam. Discontinue saline lock post exam. If Pt. has a central line or IVAD, may access for administration according to line specific nursing protocol. Once exam is complete flush line and de-access according to line specific nursing protocol in the MR contrast administration guidelines link. cetirizine (ZYRTEC) 1 mg/mL syrup Take by mouth. fluticasone (FLONASE) 50 mcg/actuation nasal spray montelukast (SINGULAIR) 10 mg tablet Melatonin 5 mg cap Take 5 mg by mouth. triamcinolone acetonide (NASACORT AQ) 55 mcg nasal inhaler Use in the nose. Ibuprofen 200 mg cap Take by mouth. No current facility-administered medications for this visit. ALLERGIES Allergen Reactions Omnicef [Cefdinir] Unknown FILMS SENT TO WORKSTATION: GUIDELINES FOR HOLDING ANTI-PLATELET AND ANTI- COAGULATION THERAPY: none on file NURSE SIGNATURE: Shanita Spears LPN DATE: November 18, 2023 TIME: 12:21 PM Sammie Avila 11/22/2023 4:21 PM Signed Called pt to schedule and a message was left. 1st attempt Sammie Avila 11/22/2023 4:56 PM Signed Spoke to pt and scheduled biopsy for 12/08/23 per pt. Allergies As of Date: 11/18/2023 Noted Allergy Reaction OMNICEF (CEFDINIR) 03/29/2021 16 - Unknown Date Reviewed: 03/29/2021 Reviewed by: Hanna Fletcher - Fully Assessed Reason for Visit: Liver Biopsy [Other] Prescriptions as of 11/22/2023 - cetirizine (ZYRTEC) 1 mg/mL syrup Take by mouth. - fluticasone (FLONASE) 50 mcg/actuation nasal spray - montelukast (SINGULAIR) 10 mg tablet - Melatonin 5 mg cap Take 5 mg by mouth. - triamcinolone acetonide (NASACORT AQ) 55 mcg nasal inhaler Use in the nose. - Ibuprofen 200 mg cap Take by mouth. Problem List As Of Date 11/18/2023 Noted Resolved Abnormal liver function tests [R79.89] 11/18/2023 Encounter Status:Closed by SAMMIE AVILA on 11/22/23 Normal [facility] CYTOMEGALOVIRUS (CMV) DNA, Q UANTITATIVE PCR, PLASMAon 11-18-2023 CMV DNA ENRIQUETA+probe Qn (P) Not detected Normal Not Detected [facility] Comment on above: Order Comment: Speci men Type: BLOOD SPECIMENOrdering Facility: [facility] Address: [address] [place] [address] Performed By: #### C MVQNT ####[facility] LABCLIA [id number] [place] [address] [place] EBV DNA # Bld ENRIQUETA+probeon EBV DNA ENRIQUETA+probe (Bld) [#/Vol] Not detected Normal EBV DNA not detected. [facility] Comment on above: Order Comment: Speci men Type: BLOOD SPECIMENOrdering Facility: [facility] Address: [address] [place] [address] Performed By: #### 3 6923-1 ####[facility] LABCLIA [id number] [place] [address] [place] EBV capsid IgG Qn (S)on 11-03 EBV VCA IGG, QUAL Negative Normal Negative [facility] Comment on above: Order Comment: Speci men Type: STOOL SPECIMEN [facility] Address: [address] [place] [address] Result Comment: No s erological evidence of recent or past EBV infection. Should recent infection be suspected, repeat testing may be considered 2-3 weeks after this draw. Performed By: #### P ANCEF, 67249-2 #### [facility] LAB CLIA [id number] [address] [place] [address] [place] EBV capsid IgM Qn (S)on 11-03 EBV VCA IGM, QUAL Negative Normal Negative [facility] Comment on above: Order Comment: Speci men Type: STOOL SPECIMEN [facility] Address: [address] [place] [address] Result Comment: No s erological evidence of recent EBV infection. Performed By: #### P ANCEF, 80586-0 #### [facility] CLIA [id number] [address] [place] [address] [place] ENDOMYSIAL ANTIBODY, IGGon 0 11-18-2023 ENDOMYSIAL ANTIBODY, IGG <1:10 Normal <1:10 [facility] Comment on above: Order Comment: Saji albarran Type: BLOOD SPECIMENOrdering Facility: [facility] Address: [address] [place] [address] Result Comment: INTE RPRETIVE INFORMATION: Endomysial Antibody, IgG The presence of CHARLIE IgG antibody may be useful in the identification of IgA-deficient patients at risk for celiac disease. Positive results must be confirmed by biopsy of the small intestine to establish a diagnosis of celiac disease. This test was developed and its performance characteristics determined by [facility]. It has not been cleared or approved by the [place] Food and Drug Administration. This test was performed in a CLIA certified laboratory and is intended for clinical purposes. Performed By: [facility] [employer] [address] [place] [address] Shorthand Teacher: Tim Liu MD, PhD CLIA Number: [id number] Performed By: #### L ROSMERY SAGE ####[facility] [id number] [place] [address] Endomysium IgA Titr Ser IFon 11-18-2023 Endomysium IgA IF (S) [Titer] <1:10 Normal <1:10, Test Not Indicated [facility] Comment on above: Order Comment: Saji albarran Type: BLOOD SPECIMENOrdering Facility: [facility] Address: [address] [place] [address] Performed By: #### 1 7284-1, 81279-6 ####[facility] LABCLIA [id number] [place] [address] [place] HBV core Ab Ser Qlon 024 HBV core Ab Ql (S) Negative Normal Negative [facility] Comment on above: Order Comment: Saji albarran Type: STOOL SPECIMEN [facility] Address: [address] [place] [address] Result Comment: No e vidence of current or past infection with Hepatitis B virus. Should recent infection be suspected, repeat testing may be considered 3-4 weeks after this draw. Performed By: #### P ANCEF, 46963-5 #### [facility] CLIA [id number] [address] [place] [address] [place] HBV surface Ab Ql (S)on 11-03 HBV surface Ab Qn (S) <8.00 Normal [facility] Comment on above: Order Comment: Speci men Type: STOOL SPECIMEN [facility] Address: [address] [place] [address] Result Comment: <8 m IU/mL: No serological evidence of immunity to Hepatitis B Virus. >/= 8 to <12 mIU/mL: No serological evidence of immunity to Hepatitis B Virus. >/= 12 mIU/mL: Consistent with serological evidence of immunity to Hepatitis B Virus. Performed By: #### P JAQUELINE, 60139-4 #### [facility] CLIA [id number] [address] [place] [address] HBV surface Ab Ser Qlon 11-03 HBV surface Ab Ql (S) Negative Normal [facility] Comment on above: Order Comment: Speci men Type: STOOL SPECIMEN [facility] Address: [address] [place] [address] Result Comment: No s erological evidence of immunity to Hepatitis B Virus. Performed By: #### P JAQUELINE, 94509-7 #### [facility] CLIA [id number] [address] [place] [address] [place] HBV surface Ag Ser Qlon 11-03 HBV surface Ag Ql (S) Negative Normal Negative [facility] Comment on above: Order Comment: Speci men Type: STOOL SPECIMEN Ordering Facility: [facility] Address: [address] [place] [address] Performed By: #### P ANCEF, 00866-0 #### [facility] CLIA [id number] [address] [place] [address] [place] HEPATITIS A ANTIBODY, IGGon 11-18-2023 HAV IgG Ql (S) Positive Normal [facility] Comment on above: Order Comment: Speci men Type: STOOL SPECIMEN Ordering Facility: [facility] Address: [address] [place] [address] Result Comment: Cons istent with serological evidence of immunity to Hepatitis A Virus. Performed By: #### P ANCEF, 41965-3 #### [facility] CLIA [id number] [address] [place] [address] [place] Hepatic function 2000 panelo n 11-18-2023 Albumin [Mass/Vol] 4.5 g/dL Normal 3.9-4.9 [facility] Comment on above: Order Comment: Speci men Type: BLOOD SPECIMENOrdering Facility: [facility] Address: [address] [place] [address] Performed By: #### 2 4325-3, 3016-3, 35998-0 ####[facility] [id number] [place] [address] [place] ALP [Catalytic activity/Vol] 223 U/L High 38-113 [facility] Comment on above: Order Comment: Speci men Type: BLOOD SPECIMENOrdering Facility: [facility] Address: [address] [place] [address] Performed By: #### 2 4325-3, 3016-3, 62059-2 ####[facility] [id number] [place] [address] [place] ALT [Catalytic activity/Vol] 362 U/L High 10-54 [facility] Comment on above: Order Comment: Speci men Type: BLOOD SPECIMENOrdering Facility: [facility] Address: [address] [place] [address] Performed By: #### 2 4325-3, 3016-3, 77874-9 ####[facility] [id number] [place] [address] [place] AST [Catalytic activity/Vol] 234 U/L High 14-40 [facility] Comment on above: Order Comment: Speci men Type: BLOOD SPECIMENOrdering Facility: [facility] Address: [address] [place] [address] Performed By: #### 2 4325-3, 3016-3, 94648-7 ####[facility]IA [id number] [place] [address] [place] Bilirubin [Mass/Vol] 0.7 mg/dL Normal 0.2-1.3 [facility] Comment on above: Order Comment: Speci men Type: BLOOD SPECIMENOrdering Facility: [facility] Address: [address] [place] [address] Performed By: #### 2 4325-3, 6-3, 54867-7 ####[facility]IA [id number] [place] [address] [place] Bilirubin.conjugate d [Mass/Vol] 0.2 mg/dL High <0.2 [facility] Comment on above: Order Comment: Speci men Type: BLOOD SPECIMENOrdering Facility: [facility] Address: [address] [place] [address] Performed By: #### 2 4325-3, 6-3, 72721-4 ####[facility]IA [id number] [place] [address] [place] Protein [Mass/Vol] 7.2 g/dL Normal 6.3-8.0 [facility] Comment on above: Order Comment: Speci men Type: BLOOD SPECIMENOrdering Facility: [facility] Address: [address] [place] [address] Performed By: #### 2 4325-3, 3015-3, 98552-8 ####[facility]IA [id number] [place] [address] [place] IgA SerPl-mCncon 02-16-2024 IgA [Mass/Vol] 112 mg/dL Normal 70-400 [facility] Comment on above: Order Comment: Speci men Type: STOOL SPECIMEN Ordering Facility: [facility] Address: [address] [place] [address] Performed By: #### P JAQUELINE, 26757-0 #### [facility] CLIA [id number] [address] [place] [address] [place] IgG SerPl-mCncon 11-18-2023 IgG [Mass/Vol] 1483 mg/dL Normal 700-1600 [facility] Comment on above: Order Comment: Speci men Type: STOOL SPECIMEN Ordering Facility: [facility] Address: [address] [place] [address] Performed By: #### P JAQUELINE, 80610-2 #### [facility] CLIA [id number] [address] [place] [address] [place] IgM SerPl-mCncon 11-18-2023 IgM [Mass/Vol] 37 mg/dL Low 40-230 [facility] Comment on above: Order Comment: Speci men Type: STOOL SPECIMEN Ordering Facility: [facility] Address: [address] [place] [address] Performed By: #### P JAQUELINE, 27631-8 #### [facility] CLIA [id number] [address] [place] [address] [place] LKM ABon 11-18-2023 LIVER-KIDNEY MICROSOMAL ABS <1:20 Normal <1:20 [facility] Comment on above: Order Comment: Speci men Type: BLOOD SPECIMENOrdering Facility: [facility] Address: [address] [place] [address] Result Comment: INTE RPRETIVE INFORMATION: Wxwyc-Fnfwic-Moruqbdom Abs, IgG Liver-Kidney Microsome IgG antibody (anti-LKM), as detected by indirect immunofluorescent antibody (IFA) techniques, may be observed in patients with autoimmune hepatitis type 2 (AIH-2), AIH-2 associated with autoimmune tapqsaszempplwkogz-ybokjtvlqcm-kpncmzxcmk dystrophy (APECED), viral hepatitis C or D, and some forms of drug-induced hepatitis. This IFA does not differentiate among the four types of LKM antibodies (LKM-1, LKM-2, LKM-3, and a fourth type that recognizes CY and CY antigens). Of these, anti-LKM-1 (cytochrome [id number]) IgG antibodies are considered specific for AIH-2. This test was developed and its performance characteristics determined by [facility]. It has not been cleared or approved by the [place] Food and Drug Administration. This test was performed in a CLIA certified laboratory and is intended for clinical purposes. Performed By: [facility] [address] [place] [address] Shorthand Teacher: Tim Liu MD, PhD CLIA Number: [id number] Performed By: #### L ROSMERY SAGE ####[facility] [id number] [place] [address] Mitochondria Ab IF Ql (S)on 11-18-2023 Mitochondria M2 Ab IA Qn (S) 2.1 Units Normal <=20.0 [facility] Comment on above: Order Comment: Speci men Type: BLOOD SPECIMENOrdering Facility: [facility] Address: [address] [place] [address] Performed By: #### 1 7284-1, 64862-0 ####[facility]IA [id number] [place] [address] [place] Mitochondria M2 Ab Ql (S) Negative Normal Negative [facility] Comment on above: Order Comment: Spectucker albarran Type: BLOOD SPECIMENOrdering Facility: [facility] Address: [address] [place] [address] Result Comment: Anti -mitochondrial antibody test is used as an aid in diagnosis of primary biliary cholangitis. Clinical correlation is required. Performed By: #### 1 7284-1, 91413-3 ####[facility]IA [id number] [place] [address] [place] PT panel Coag (PPP)on 2023 INR Coag (PPP) [Relative time] 1.0 {INR} Normal 0.9-1.3 [facility] Comment on above: Order Comment: Saji albarran Type: BLOOD SPECIMENOrdering Facility: [facility] Address: [address] [place] [address] Result Comment: Rita min K Antagonist (VKA) Therapeutic Range: INR 2 to 3 (Target INR of 2.5) Note: For patients treated with VKA drugs, such as warfarin, the [employer] 2012 Guideline recommends a therapeutic INR range of 2 to 3 (target INR of 2.5). This recommendation includes high-risk patients with antiphospholipid syndrome with previous arterial or venous thromboembolism, current-generation mechanical or bioprosthetic aortic heart valve replacement. Note: Patients with mechanical aortic valve replacement and additional risk factors for thromboembolic events (atrial fibrillation, previous thromboembolism, LV dysfunction, hypercoagulable conditions) or an older generation mechanical AVR (i.e., ball in-Cage) or any mechanical MVR should have a INR therapeutic range of 2.5 to 3.5 (target INR of 3). Bryce GH, et al. Chest 2012, 141:7S-47S Nitesh RA, et al. [facility] 2017, 70: 252-289 Performed By: #### 3 4528-0 ####[facility]IA [id number] [place] [address] [place] PT Coag (PPP) [Time] 10.9 s Normal 9.7-13.0 [facility] Comment on above: Order Comment: Saji albarran Type: BLOOD SPECIMENOrdering Facility: [facility] Address: [address] [place] [address] Performed By: #### 3 4528-0 ####[facility]IA [id number] [place] [address] [place] SOLUBLE LIVER AG ABon 2023 SOLUBLE LIVER AG, IGG 1.7 U Normal 0.0-24.9 [facility] Comment on above: Order Comment: Saji albarran Type: STOOL SPECIMEN Ordering Facility: [facility] Address: [address] [place] [address] Result Comment: REFE RENCE INTERVAL: Soluble Liver Antigen Antibody, IgG 0.0 - 20.0 U ........... Negative 20.1 - 24.9 U ........... Equivocal 25.0 U or greater ....... Positive The presence of SLA antibodies has almost 100% specificity for autoimmune hepatitis, although only 12-30% have these antibodies. Thus, a negative SLA IgG test does not rule out autoimmune hepatitis. Performed By: [facility] [address] [place] [address] Shorthand Teacher: Tim Liu MD, PhD CLIA Number: [id number] Performed By: #### P [facility], 29808-5 #### [facility] CLIA [id number] [address] [place] [address] [place] TPMT PHENOTYPE/ENZYME ACTIVI TYon 11-18-2023 TPMT ACTIVITY 21.0 U/mL Low 24.0-44.0 [facility] Comment on above: Order Comment: Speci men Type: BLOOD SPECIMENOrdering Facility: [facility] Address: [address] [place] [address] Result Comment: INTE RPRETIVE INFORMATION: Thiopurine Methyltransferase, RBC Normal TPMT activity: 24.0-44.0 U/mL................Individuals are predicted to be at low risk of bone marrow toxicity (myelosuppression) as a consequence of standard thiopurine therapy; no dose adjustment is recommended. Intermediate TPMT activity: 17.0-23.9 U/mL................Individuals are predicted to be at intermediate risk of bone marrow toxicity (myelosuppression) as a consequence of standard thiopurine therapy; a dose reduction and therapeutic drug management is recommended. Low TPMT activity: less than 17.0 U/mL...........Individuals are predicted to be at high risk of bone marrow toxicity (myelosuppression) as a consequence of standard thiopurine dosing. It is recommended to avoid the use of thiopurine drugs. High TPMT activity: greater than 44.0 U/mL........Individuals are not predicted to be at risk for bone marrow toxicity (myelosuppression) as a consequence of standard thiopurine dosing, but may be at risk for therapeutic failure due to excessive inactivation of thiopurine drugs. Individuals may require higher than the normal standard dose. Therapeutic drug management is recommended. The TPMT, RBC assay is used as a screen to detect individuals with low and intermediate TPMT activity who may be at risk for myelosuppression when exposed to standard doses of thiopurines, including azathioprine (Imuran) and 6-mercaptopurine (Purinethol). TPMT is the primary metabolic route for inactivation of thiopurine drugs in the bone marrow. When TPMT activity is low, it is predicted that proportionately more 6-mercaptopurine can be converted into the cytotoxic 6-thioguanine nucleotides that accumulate in the bone marrow causing excessive toxicity. The activity of TPMT is measured by the nanomoles of 6-methylmercaptopurine (inactive metabolite) produced per 1 mL of packed red blood cells, (U/mL). TPMT phenotype testing does not replace the need for clinical monitoring of patients treated with thiopurine drugs. Genotype for TPMT cannot be inferred from TPMT activity (phenotype). Phenotype testing should not be requested for patients currently treated with thiopurine drugs. Current TPMT phenotype may not reflect future TPMT phenotype, particularly in patients who received blood transfusion within 30-60 days of testing. TPMT enzyme activity can be inhibited by several drugs such as: naproxen (Aleve), ibuprofen (Advil, Motrin), ketoprofen (Orudis), furosemide (Lasix), sulfasalazine (Azulfidine), mesalamine (Asacol), olsalazine (Dipentum), mefenamic acid (Ponstel), thiazide diuretics, and benzoic acid inhibitors. TPMT inhibitors may contribute to falsely low results; patients should abstain from these drugs for at least 48 hours prior to TPMT testing. Falsely low results may also occur as a result of inappropriate specimen handling and hemolysis. This test was developed and its performance characteristics determined by [facility]. It has not been cleared or approved by the [place] Food and Drug Administration. This test was performed in a CLIA certified laboratory and is intended for clinical purposes. Performed By: [facility] [address] [place] [address] Shorthand Teacher: Tim Liu MD, PhD CLIA Number: [id number] Performed By: #### T PMT ####[facility] [id number] [place] [address] TSH SerPl-aCncon 11-18-2023 TSH Qn 3.430 m[IU]/L Normal 0.510-4.300 [facility] Comment on above: Order Comment: Speci men Type: BLOOD SPECIMENOrdering Facility: [facility] Address: [address] [place] [address] Performed By: #### 2 4325-3, 3016-3, 55138-4 ####[facility]CLIA [id number] [address] [place] tTG IgA Qn (S)on 11-18-2023 TRANSGLUTAMINASE IGA ABS INTERPRETATION Negative Normal Negative [facility] Comment on above: Order Comment: Speci men Type: BLOOD SPECIMENOrdering Facility: [facility] Address: [address] [place] [address] Result Comment: The following results were obtained with [employer] R h-tTG IgA CORNELL.???R h-tTG IgA values obtained with different manufacturers' assay methods may not be used interchangeably. The magnitude of the reported IgA levels cannot be correlated to an endpoint???concentration. This is used as an aid in diagnosis of celiac disease. Clinical correlation is required. Performed By: #### 3 1017-7, 94543-2 ####[facility]CLIA [id number] [place] [address] [place] tTG IgA Ser-aCncon 4 tTG IgA Qn (S) <2 Normal <4 [facility] Comment on above: Order Comment: Speci men Type: BLOOD SPECIMENOrdering Facility: [facility] Address: [address] [place] [address] Performed By: #### 3 1017-7, 46325-4 ####[facility]CLIA [id number] [place] [address] [place] tTG IgG Qn (S)on 11-18-2023 TRANSGLUTAMINASE IGG ABS INTERPRETATION Negative Normal Negative [facility] Comment on above: Order Comment: Saji albarran Type: BLOOD SPECIMENOrdering Facility: [facility] Address: [address] [place] [address] Result Comment: The following results were obtained with [employer] R h-tTG IgG CORNELL.???R h-tTG IgG values obtained with different manufacturers' assay methods may not be used interchangeably. The magnitude of the reported IgG levels cannot be correlated to an endpoint???concentration. This test is used as an aid in diagnosis of celiac disease in IgA-deficient individuals only. Clinical correlation is required. Performed By: #### 3 1017-7, 44427-5 ####[facility]CLIA [id number] [place] [address] [place] tTG IgG Ser-aCncon tTG IgG Qn (S) 2 U/mL Normal <6 [facility] Comment on above: Order Comment: Speci men Type: BLOOD SPECIMENOrdering Facility: [facility] Address: [address] [place] [address] Performed By: #### 3 1017-7, 31884-2 ####[facility]CLIA [id number] [place] [address] [place] Vital Signs Date Time Vital Sign Value Performing Clinician Faci lity 07-25-2024 09:-040 Diastolic blood pressure 82 mm[Hg] Uri Moy MD Work Phone: [facility] 07-25-2024 09:040 Respiratory rate 16 /min Uri Myo MD Work Phone: [facility] 07-25-2024 09:26-0400 SaO2% (BldA) [Mass fraction] 100 % Uri Myo MD Work Phone: [facility] 07-25-2024 09:26-0400 Systolic blood pressure 117 mm[Hg] Uri Moy MD Work Phone: [facility] 07-25-2024 09:01-0400 Body temperature 97.7 [degF] Uri Moy MD Work Phone: [facility] 07-25-2024 09:01-0400 Heart rate 75 /min Uri Moy MD Work Phone: [facility] 07-25-2024 07:22-0400 Body height 185.4 cm Uri Moy MD Work Phone: [facility] 07-25-2024 07:22-0400 Body mass index (BMI) [Ratio] 22.3 kg/m2 Uri Moy MD Work Phone: [facility] 07-25-2024 07:22-0400 Body weight 76.66 kg Uri Moy MD Work Phone: [facility] 06-21-2024 13:42-0400 Body height 185.4 cm Codi Kalka PA-C Work Phone: [facility] 06-21-2024 13:42-0400 Body mass index (BMI) [Ratio] 22.3 kg/m2 Codi Kalka PA-C Work Phone: [facility] 06-21-2024 13:42-0400 Body weight 76.66 kg Codi Kalka PA-C Work Phone: [facility] 06-21-2024 13:42-0400 Diastolic blood pressure 68 mm[Hg] Codi Kalka PA-C Work Phone: [facility] 06-21-2024 13:42-0400 Heart rate 78 /min Codi Kalka PA-C Work Phone: [facility] 06-21-2024 13:42-0400 Systolic blood pressure 112 mm[Hg] Codi Kalka PA-C Work Phone: [facility] 02-06-2024 13:28-0400 Body height 185.4 cm Codi Kalka PA-C Work Phone: [facility] 02-06-2024 13:28-0400 Body mass index (BMI) [Ratio] 23.22 kg/m2 Codi Kalka PA-C Work Phone: [facility] 02-06-2024 13:28-0400 Body weight 79.83 kg Codi Kalka PA-C Work Phone: [facility] 02-06-2024 13:28-0400 Diastolic blood pressure 70 mm[Hg] Codi Kalka PA-C Work Phone: [facility] 02-06-2024 13:28-0400 Heart rate 58 /min Codi Kalka PA-C Work Phone: [facility] 02-06-2024 13:28-0400 Systolic blood pressure 112 mm[Hg] Codi Kalka PA-C Work Phone: [facility] 02-02-2024 09:40-0400 Respiratory rate 16 /min Levi Miles MD Work Phone: [facility] 02-02-2024 09:20-0400 Diastolic blood pressure 64 mm[Hg] Levi Miles MD Work Phone: [facility] 02-02-2024 09:20-0400 Systolic blood pressure 102 mm[Hg] Levi Miles MD Work Phone: [facility] 02-02-2024 09:05-0400 Heart rate 56 /min Levi Miles MD Work Phone: [facility] 02-02-2024 09:05-0400 SaO2% (BldA) [Mass fraction] 100 % Levi Miles MD Work Phone: [facility] 02-02-2024 08:03-0400 Body temperature 97.5 [degF] Levi Miles MD Work Phone: [facility] 02-02-2024 08:030400 Body weight 72.6 kg Levi Miles MD Work Phone: [facility] Encounters Encounter Date Encounter Type Care Provider Facility Start: 07-25-2024 [facility] Start: 07-25-2024 Encounter for other preprocedural examination LAYNEJO ANNMUKUND Mirza [facility] Start: 07-25-2024 ambulatory URI MOY Fac ility:[facility] Start: 07-25-2024 End: 07-25-2024 Gastroscopy normal Uri Moy MD Work Phone: [facility] Work Phone: Start: 07-25-2024 End: 07-25-2024 Preprocedural examination done Uri Moy MD Work Phone: [facility] Start: 07-25-2024 End: 07-25-2024 Subsequent hospital visit by physician Uri Moy MD Work Phone: [facility] Comment on above: Ulcerative chronic p ancolitis with rectal bleeding (HCC) [K51.011] Start: 07-18-2024 End: 07-18-2024 ambulatory SIVA ROME Facility:[facility] Start: 07-13-2024 End: 07-13-2024 Orders Only Siva Rome MD Work Phone: Gastroenterology Comment on above: Abnormal results of liver function studies (Primary Dx); PSC (primary sclerosing cholangitis) Start: 07-11-2024 End: 07-11-2024 ambulatory SIVA ROME Facility:[facility] Start: 07-11-2024 End: 07-11-2024 Subsequent hospital visit by physician [employer] [facility] (I-Stat/1.5t) Work Phone: Radiology Comment on above: Cholangitis [K83.09] Start: 06-23-2024 End: 06-23-2024 ambulatory SIVA ROME Facility:[facility] Start: 06-21-2024 End: 06-21-2024 ambulatory CODI DUNN Facility:[facility] Start: 06-21-2024 End: 06-21-2024 Patient encounter procedure Codi Dunn PA-C Work Phone: [facility] Comment on above: Ulcerative chronic p ancolitis with rectal bleeding (HCC) (Primary Dx); Postprandial bloating; Anxiety about health Start: 04-30-2024 End: 04-30-2024 ambulatory SIVA ROME Facility:[facility] Start: 02-20-2024 [facility]ulatory [facility]: Persistent headache question Start: 02-08-2024 End: 02-08-2024 ambulatory Codi Dunn PA-C Work Phone: [facility] Comment on above: Mesalamine was $10 Start: 02-06-2024 End: 02-06-2024 ambulatory CODI DUNN Facility:[facility] Start: 02-06-2024 End: 02-06-2024 Patient encounter procedure [facility] Comment on above: Ulcerative chronic p ancolitis with rectal bleeding (HCC) (Primary Dx) Start: 02-04-2024 Orders Only Siva mckeon MD Work Phone: Gastroenterology Comment on above: Ulcerative colitis w ith complication, unspecified location (HCC) (Primary Dx) Start: 02-02-2024 End: 02-02-2024 ambulatory SIVA ROME Facility:[facility] Start: 02-02-2024 End: 02-02-2024 Subsequent hospital visit by physician Levi Miles MD Work Phone: Ambulatory Surgery Comment on above: PSC (primary scleros ing cholangitis) [K83.01] Start: 01-16-2024 ambulatory Siva mckeon MD Work Phone: Gastroenterology Comment on above: Hepatitis B vaccine Start: 01-06-2024 End: 01-06-2024 ambulatory SIVA ROME Facility:[facility] Start: 12-16-2023 Telephone encounter Siva Rome MD Work Phone: Gastroenterology Comment on above: Patient Update Start: 12-12-2023 End: 12-12-2023 ambulatory SIVA ROME Facility:[facility] Start: 12-08-2023 End: 12-08-2023 ambulatory MARY NOEL Facility:[facility] Start: 12-05-2023 End: 12-05-2023 ambulatory SIVA ROME Facility:[facility] Start: 12-05-2023 End: 12-05-2023 Subsequent hospital visit by physician [facility] (I-Stat/1.5t) [facility] Comment on above: Abnormal results of liver function studies [R94.5] Start: 11-18-2023 Telephone encounter Siva Rome MD Work Phone: Gastroenterology Comment on above: Liver Biopsy Start: 11-18-2023 End: 11-18-2023 ambulatory Siva Rome MD Work Phone: Gastroenterology Comment on above: Abnormal results of liver function studies (Primary Dx); Abnormal liver function tests Start: 11-18-2023 End: 11-18-2023 Telemedicine consultation with patient Siva Rome MD Work Phone: [facility] Procedures Date Procedure Procedure Detail Performing Clinician Start: 07-11-2024 Mri abdomen w/o & w/contrast material Siva Rome MD Work Phone: Start: 02-02-2024 Colonoscopy flx dx w /collj spec when pfrmd Siva Rome MD Work Phone: Start: 12-05-2023 Mri abdomen w/o & w/contrast material Siva Rome MD Work Phone: Start: 12-05-2023 Us abdominal real ti me w/image limited Siva Rome MD Work Phone: Plan of Treatment Date Care Activity Detail Author Start: 03-19-2025 Urine microalbumin profile DTaP,Tdap,Td Vaccine (7 - Td or Tdap) [facility] Start: 01-11-2025 End: 08-12-2025 MR Biliary ducts and Pancreatic duct WO and W contrast IV MRI PANC/EPIFANIO WO/W IVCON Radiology Routine Abnormal results of liver function studies PSC (primary sclerosing cholangitis) Expected: 01/11/2025, Expires: 08/12/2025 [facility] Work Phone: Comment on above: Expected: 01/11/2025, Expires: Start: 12-26-2024 End: 12-26-2024 Patient encounter procedure 12/26/2024 2:40 PM EDT Office Visit [facility] [address] [place] [phone] Codi Dunn PA-C [address] [place] [address] 6 month follow up office visit, ulcerative chronic pancolitiswith rectal bleeding, post prandial bloating [facility] Comment on above: 6 month follow up office visit, ulcerati ve chronic pancolitiswith rectal bleeding, post prandial bloating Start: 08-09-2024 End: 08-09-2024 Follow-up encounter 08/09/2024 4:30 PM [facility] Gastroenterology [address] [address] Siva Rome MD [address] [place], [place] [id number] Cholangitis [K83.09] follow up Gastroenterology Comment on above: Cholangitis [K83.09] follow up Start: 07-25-2024 End: 07-25-2024 Patient encounter procedure [facility]ORRA[facility] GUY Comment on above: ins pending Start: 07-13-2024 End: 10-12-2024 Cancer Ag 19-9 [Units/volume] in Serum or Plasma CA 19-9 Lab Routine PSC (primary sclerosing cholangitis) Expected: 07/13/2024, Expires: 10/12/2024 [facility] Comment on above: Expected: 07/13/2024, Expires: 5 Start: 07-11-2024 End: 07-11-2024 Patient encounter procedure 07/11/2024 8:40 AM EDT Appointment Radiology [address] [place] [address] Cholangitis [K83.09] Radiology Comment on above: Cholangitis [K83.09] Start: 06-21-2024 End: 09-20-2024 Basic metabolic 2000 panel - Serum or Plasma BASIC METABOLIC PANEL Lab Routine 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) Expected: 06/21/2024, Expires: 09/20/2024 [facility] Comment on above: Expected: 06/21/2024, Expires: Start: 06-21-2024 End: 09-20-2024 CBC W Auto Differential panel - Blood COMPLETE BLOOD COUNT AND DIFFERENTIAL Lab Routine 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) Expected: 06/21/2024, Expires: 09/20/2024 [facility] Comment on above: Expected: 06/21/2024, Expires: Start: 06-21-2024 End: 06-21-2024 Patient encounter procedure 06/21/2024 1:50 PM EDT Office Visit [facility] [address] [facility] [place] [phone] Codi Dunn PA-C [address] [facility] [place] [address] follow up for ulcerative colitis [facility] Comment on above: follow up for ulcerative colitis Start: 06-03-2024 Covid-19 Vaccine () Covid-19 Vaccine () [facility] Start: 06-03-2024 Covid-19 Vaccine () Covid-19 Vaccine () [facility] Start: 06-03-2024 Influenza vaccination [facility] Start: 02-06-2024 End: 05-07-2024 Basic metabolic 2000 panel - Serum or Plasma BASIC METABOLIC PANEL Lab Routine 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) Expected: 02/06/2024, Expires: 05/07/2024 [facility] Comment on above: Expected: 02/06/2024, Expires: Start: 02-06-2024 End: 05-07-2024 C reactive protein [Mass/volume] in Serum or Plasma C-REACTIVE PROTEIN Lab Routine 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) Expected: 02/06/2024, Expires: 05/07/2024 [facility] Comment on above: Expected: 02/06/2024, Expires: Start: 02-06-2024 End: 05-07-2024 CBC panel - Blood by Automated count COMPLETE BLOOD COUNT Lab Routine 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) Expected: 02/06/2024, Expires: 05/07/2024 [facility] Work Phone: Comment on above: Expected: 02/06/2024, Expires: Start: 02-06-2024 End: 05-07-2024 Cobalamin (Vitamin B12) [Mass/volume] in Serum or Plasma VITAMIN B12 Lab Routine 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) Expected: 02/06/2024, Expires: 05/07/2024 [facility] Comment on above: Expected: 02/06/2024, Expires: Start: 02-06-2024 End: 05-07-2024 Erythrocyte sedimentation rate SEDIMENTATION RATE, WESTERGREN Lab Routine 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) Expected: 02/06/2024, Expires: 05/07/2024 [facility] Comment on above: Expected: 02/06/2024, Expires: Start: 02-06-2024 End: 02-06-2024 Patient encounter procedure 02/06/2024 1:25 PM EDT Office Visit [facility] [address] [place] [phone] Codi Dunn PA-C [address] [facility] [place] [address] Consult to Gastroenterology [facility] Comment on above: Consult to Gastroenterology Start: 02-02-2024 End: 02-02-2024 Patient encounter procedure 02/02/2024 1:15 PM EDT Appointment Ambulatory Surgery [address] [place], [place] [phone] Levi Miles MD [address] [place], [place] [phone] PSC (primary sclerosing cholangitis) [K83.01] Ambulatory Surgery Comment on above: PSC (primary sclerosing cholangitis) [K8 3.01] Start: 11-18-2023 End: 02-17-2024 Basic metabolic 2000 panel - Serum or Plasma BASIC METABOLIC PNL Lab Routine Abnormal results of liver function studies Expected: 11/18/2023, Expires: 02/17/2024 [facility] Work Phone: Comment on above: Expected: 11/18/2023, Expires: 4 Start: 11-18-2023 End: 02-17-2024 BLOOD TB SCREEN BLOOD TB SCREEN Lab Routine Abnormal results of liver function studies Expected: 11/18/2023, Expires: 02/17/2024 [facility] Work Phone: Comment on above: Expected: 11/18/2023, Expires: 4 Start: 11-18-2023 End: 02-17-2024 CBC W Auto Differential panel - Blood CBC + DIFF Lab Routine Abnormal results of liver function studies Expected: 11/18/2023, Expires: 02/17/2024 [facility] Work Phone: Comment on above: Expected: 11/18/2023, Expires: 4 Start: 11-18-2023 End: 02-17-2024 CYTOMEGALOVIRUS (CMV) DNA, QUANTITATIVE PCR, PLASMA CYTOMEGALOVIRUS (CMV) DNA, QUANTITATIVE PCR, PLASMA Lab Routine Abnormal results of liver function studies Expected: 11/18/2023, Expires: 02/17/2024 [facility] Work Phone: Comment on above: Expected: 11/18/2023, Expires: 4 Start: 11-18-2023 End: 02-17-2024 Cytomegalovirus IgG Ab [Units/volume] in Serum or Plasma CMV IGG ANTIBODY BL Lab Routine Abnormal results of liver function studies Expected: 11/18/2023, Expires: 02/17/2024 [facility] Work Phone: Comment on above: Expected: 11/18/2023, Expires: Start: 11-18-2023 End: 02-17-2024 Cytomegalovirus IgM Ab [Units/volume] in Serum or Plasma CMV IGM AB Lab Routine Abnormal results of liver function studies Expected: 11/18/2023, Expires: 02/17/2024 [facility] Work Phone: Comment on above: Expected: 11/18/2023, Expires: 4 Start: 11-18-2023 End: 02-17-2024 ENDOMYSIAL ANTIBODY, IGG ENDOMYSIAL ANTIBODY, IGG Lab Routine Abnormal results of liver function studies Expected: 11/18/2023, Expires: 02/17/2024 [facility] Work Phone: Comment on above: Expected: 11/18/2023, Expires: 4 Start: 11-18-2023 End: 02-17-2024 Endomysium IgA Ab [Titer] in Serum by Immunofluorescence ENDOMYSIAL IGA AB Lab Routine Abnormal results of liver function studies Expected: 11/18/2023, Expires: 02/17/2024 [facility] Work Phone: Comment on above: Expected: 11/18/2023, Expires: 4 Start: 11-18-2023 End: 02-17-2024 Briana Pena virus capsid IgG Ab [Units/volume] in Serum BRIANA-PENA VCA IGG Lab Routine Abnormal results of liver function studies Expected: 11/18/2023, Expires: 02/17/2024 [facility] Work Phone: Comment on above: Expected: 11/18/2023, Expires: 4 Start: 11-18-2023 End: 02-17-2024 Briana Pena virus capsid IgM Ab [Units/volume] in Serum BRIANA-PENA VCA IGM Lab Routine Abnormal results of liver function studies Expected: 11/18/2023, Expires: 02/17/2024 [facility] Work Phone: Comment on above: Expected: 11/18/2023, Expires: Start: 11-18-2023 End: 02-17-2024 Briana Pena virus DNA [#/volume] (viral load) in Blood by ENRIQUETA with probe detection BRIANA-PENA DNA QNT Lab Routine Abnormal results of liver function studies Expected: 11/18/2023, Expires: 02/17/2024 [facility] Work Phone: Comment on above: Expected: 11/18/2023, Expires: 4 Start: 11-18-2023 End: 02-17-2024 HEPATITIS A ANTIBODY, IGG HEPATITIS A ANTIBODY, IGG Lab Routine Abnormal results of liver function studies Expected: 11/18/2023, Expires: 02/17/2024 [facility] Work Phone: Comment on above: Expected: 11/18/2023, Expires: 4 Start: 11-18-2023 End: 02-17-2024 Hepatitis B virus core Ab [Presence] in Serum HEP B CORE AB TOTAL Lab Routine Abnormal results of liver function studies Expected: 11/18/2023, Expires: 02/17/2024 [facility] Work Phone: Comment on above: Expected: 11/18/2023, Expires: 4 Start: 11-18-2023 End: 02-17-2024 Hepatitis B virus surface Ab [Presence] in Serum HEP B SURF AB Lab Routine Abnormal results of liver function studies Expected: 11/18/2023, Expires: 02/17/2024 [facility] Work Phone: Comment on above: Expected: 11/18/2023, Expires: 4 Start: 11-18-2023 End: 02-17-2024 Hepatitis B virus surface Ag [Presence] in Serum HEP B SURF AG SCRN Lab Routine Abnormal results of liver function studies Expected: 11/18/2023, Expires: 02/17/2024 [facility] Work Phone: Comment on above: Expected: 11/18/2023, Expires: 4 Start: 11-18-2023 End: 02-17-2024 IgA [Mass/volume] in Serum or Plasma IGA BLD Lab Routine Abnormal results of liver function studies Expected: 11/18/2023, Expires: 02/17/2024 [facility] Work Phone: Comment on above: Expected: 11/18/2023, Expires: 4 Start: 11-18-2023 End: 02-17-2024 IgG [Mass/volume] in Serum or Plasma IGG Lab Routine Abnormal results of liver function studies Expected: 11/18/2023, Expires: 02/17/2024 [facility] Work Phone: Comment on above: Expected: 11/18/2023, Expires: 4 Start: 11-18-2023 End: 02-17-2024 IgM [Mass/volume] in Serum or Plasma IGM Lab Routine Abnormal results of liver function studies Expected: 11/18/2023, Expires: 02/17/2024 [facility] Work Phone: Comment on above: Expected: 11/18/2023, Expires: 4 Start: 11-18-2023 End: 02-17-2024 Liver kidney microsomal Ab [Titer] in Serum by Immunofluorescence LKM AB Lab Routine Abnormal results of liver function studies Expected: 11/18/2023, Expires: 02/17/2024 [facility] Work Phone: Comment on above: Expected: 11/18/2023, Expires: 4 Start: 11-18-2023 End: 02-17-2024 Mitochondria Ab [Presence] in Serum by Immunofluorescence MITOCHONDRIAL M2 IGG SERUM Lab Routine Abnormal results of liver function studies Expected: 11/18/2023, Expires: 02/17/2024 [facility] Work Phone: Comment on above: Expected: 11/18/2023, Expires: 4 Start: 11-18-2023 End: 02-17-2024 PT panel - Platelet poor plasma by Coagulation assay PROTHROMBIN TIME/PT Lab Routine Abnormal results of liver function studies Expected: 11/18/2023, Expires: 02/17/2024 [facility] Work Phone: Comment on above: Expected: 11/18/2023, Expires: 4 Start: 11-18-2023 End: 02-17-2024 Soluble liver IgG Ab [Units/volume] in Serum by Immunoassay SOLUBLE LIVER AG AB Lab Routine Abnormal results of liver function studies Expected: 11/18/2023, Expires: 02/17/2024 [facility] Work Phone: Comment on above: Expected: 11/18/2023, Expires: 4 Start: 11-18-2023 End: 02-17-2024 Thyrotropin [Units/volume] in Serum or Plasma TSH BLD Lab Routine Abnormal results of liver function studies Expected: 11/18/2023, Expires: 02/17/2024 [facility] Work Phone: Comment on above: Expected: 11/18/2023, Expires: 4 Start: 11-18-2023 End: 02-17-2024 Tissue transglutaminase Ab panel - Serum TRANSGLUTAMINASE ABS Lab Routine Abnormal results of liver function studies Expected: 11/18/2023, Expires: 02/17/2024 [facility] Work Phone: Comment on above: Expected: 11/18/2023, Expires: 4 Start: 11-18-2023 End: 02-17-2024 TPMT PHENOTYPE/ENZYME ACTIVITY TPMT PHENOTYPE/ENZYME ACTIVITY Lab Routine Abnormal results of liver function studies Expected: 11/18/2023, Expires: 02/17/2024 [facility] Work Phone: Comment on above: Expected: 11/18/2023, Expires: Start: 10-03-2023 Behavioral Health Screening Behavioral Health Screening [facility] Start: 10-03-2023 Depression Assessment Depression Assessment [facility] Start: 06-03-2023 Covid-19 Vaccine () Covid-19 Vaccine () [facility] Start: 06-03-2023 Influenza vaccination Influenza Vaccine (#1) [facility] Start: 2020 Anxiety Screening Anxiety Screening [facility] Start: 2020 Depression Screening Depression Screening [facility] Start: 2020 Hepatitis C screening Hepatitis C Screening [facility] Start: 2020 HIV screening HIV Screening [facility] Start: 12-28-2019 Meningococcal B Vaccine: Consider Based On Risk (2 of 2 - Risk Bexsero 2-dose series) Meningococcal B Vaccine: Consider Based On Risk (2 of 2 - Risk Bexsero 2-dose series) [facility] Start: 12-28-2019 Meningococcal B Vaccine: Consider Based On Risk (2 of 4 - Increased Risk Bexsero 2-dose series) Meningococcal B Vaccine: Consider Based On Risk (2 of 4 - Increased Risk Bexsero 2-dose series) [facility] Start: 2016 Peds To Adult Transition Annual Assessment Peds To Adult Transition Annual Assessment [facility] Start: 2014 Peds To Adult Transition Initial Discussion Peds To Adult Transition Initial Discussion [facility] Start: 2008 Pneumococcal vaccination Pneumococcal Vaccine (1 of 2 - PCV) [facility] Start: 05-29-2003 Covid-19 Vaccine (#1) Covid-19 Vaccine (#1) [facility] Calprotectin [Mass/m ass] in Stool CALPROTECTIN,FECAL Lab Routine 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) Ordered: 02/06/2024 [facility] Comment on above: Ordered: 02/06/2024 Calprotectin [Mass/m ass] in Stool CALPROTECTIN,FECAL Lab Routine 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) Ordered: 06/21/2024 [facility] Work Phone: Comment on above: Ordered: 06/21/2024 End: 06-21-2025 EGD DIAGNOSTIC EGD DIAGNOSTIC Endoscopy Routine 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) Postprandial bloating 1 Occurrences starting 06/21/2024 until 06/21/2025 [facility] Comment on above: 1 Occurrences starting 06/21/2024 until 06/21/2025 End: 01-24-2025 Flexible sigmoidoscopy study COLONOSCOPY DIAGNOSTIC Endoscopy Routine PSC (primary sclerosing cholangitis) 1 Occurrences starting 01/25/2024 until 01/24/2025 [facility] Work Phone: Comment on above: 1 Occurrences starting 01/25/2024 until 01/24/2025 End: 06-21-2025 Flexible sigmoidoscopy study COLONOSCOPY DIAGNOSTIC Endoscopy Routine 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) 1 Occurrences starting 06/21/2024 until 06/21/2025 [facility] Comment on above: 1 Occurrences starting 06/21/2024 until 06/21/2025 Guidance for percuta neous biopsy of Liver IMAGING GUIDED BIOPSY LIVER Radiology Routine Abnormal results of liver function studies Ordered: 11/18/2023 [facility] Work Phone: Comment on above: Ordered: 11/18/2023 End: 11-17-2024 Hepatic function 2000 panel - Serum or Plasma HEPATIC FUNCTION PNL Lab Routine Abnormal results of liver function studies Once per month for 12 Occurrences starting 11/18/2023 until 11/17/2024 [facility] Work Phone: Comment on above: Once per month for 12 Occurrences starti ng 11/18/2023 until 11/17/2024 End: 12-17-2024 MR Biliary ducts and Pancreatic duct WO and W contrast IV MRI PANC/EPIFANIO WO/W IVCON Radiology Routine Abnormal results of liver function studies 1 Occurrences starting 11/18/2023 until 12/17/2024 [facility] Work Phone: Comment on above: 1 Occurrences starting 11/18/2023 until 12/17/2024 End: 12-17-2024 MR Unspecified body region 3D post processing MRI 3D POST PROCESSING Radiology Routine Abnormal results of liver function studies 1 Occurrences starting 11/18/2023 until 12/17/2024 [facility] Work Phone: Comment on above: 1 Occurrences starting 11/18/2023 until 12/17/2024 End: 08-12-2025 MR Unspecified body region 3D post processing MRI 3D POST PROCESSING Radiology Routine PSC (primary sclerosing cholangitis) 1 Occurrences starting 07/13/2024 until 08/12/2025 [facility] Comment on above: 1 Occurrences starting 07/13/2024 until 08/12/2025 PANC ELASTASE, FECAL PANC ELASTA SE, FECAL Lab Routine 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) Ordered: 06/21/2024 [facility] Comment on above: Ordered: 06/21/2024 SURGICAL PATHOLOGY [facility] Work Phone: Comment on above: Release Upon Ordering for 1 Occurrences starting 02/02/2024, 1 completed SURGICAL PATHOLOGY [facility] Work Phone: Comment on above: Release Upon Ordering for 1 Occurrences starting 07/25/2024 End: 12-17-2024 US Abdomen RUQ US ABD RIGHT UPPER QUADRANT Radiology Routine Abnormal results of liver function studies 1 Occurrences starting 11/18/2023 until 12/17/2024 [facility] Work Phone: Comment on above: 1 Occurrences starting 11/18/2023 until 12/17/2024 [facility] Immun[facility] Immunization Date Immunization Notes Care Provider [facility] 08-18-2019 influenza virus vacc ine, unspecified formulation Siva Rome MD Work Phone: [facility] Payers Date Payer Category Payer Unknown [employer] PPO OOS [id number] 2023-Present [phone] [address] [place] [address] PPO [id number] 2023 Unknown [id number] Social History Date Type Detail Facility Start: 03-29-2021 End: 02-02-2024 Tobacco smoking status NHIS Never smoked tobacco [facility] Start: 03-29-2021 End: 02-02-2024 Tobacco use and exposure Smokeless tobacco non-user [facility] Start: 03-29-2021 End: 02-06-2024 History of Social function [facility] Start: 03-29-2021 End: 02-06-2024 Tobacco use panel [facility] National Score (1-10 0), lower number is lower risk Not on file [facility] Start: 2002 Sex Assigned At Not on file [facility] Start: 11-15-2023 Gender identity Identifies as male gender (finding) [facility] Start: 02-02-2024 End: 07-25-2024 Alcohol intake Lifetime non-drinker (finding) [facility] Clinical Notes 11-18-2023 to 07-25-2024 Zia Griggs RN - 07/25/2024 9:15 AM Zia Bowden RN - 07/25/2024 9:15 AM Jere Luu APRN.SAMPLE CHECKER - 07/25/2024 8:00 AM EDUri Craven MD - 07/25/2024 8:00 AM EDT Note Date & Type Note Facility 07-25-2024 Note HNO ID: [id number] Author: ZIA GRIGGS, RN Service: ? Author Type: Registered Nurse Type: Nursing Progress Note Filed: 07/25/2024 09:16 Note Text: Dr Moy spoke with patient [facility] 07-25-[address] Moy spoke with patient [facility] 07-25-[address] Moy spoke with patient documented in this encounter [facility] 07-25-2024 History and physical note HISTORY AND PHYSICAL EXAMINATION SERVICE DATE: 07/25/2024 SERVICE TIME: 7:20 AM PRIMARY CARE PHYSICIAN: Kyra Mendoza MD REASON FOR VISIT: The reason for this visit is To perform a comprehensive review of the patients past medical history, assess their current health status and obtain any additional testing required based on anesthesia guidelines. To assess and identify potential anesthesia problems, particularly those that may suggest potential complications or contraindications to the planned procedure. The patient has the following: ACTIVE PROBLEM LIST Abnormal Liver Function Tests Psc (Primary Sclerosing Cholangitis) Pre-Op Examination Ulcerative (Chronic) Pancolitis With Rectal Bleeding (Hcc) Postprandial Bloating Subjective CHIEF COMPLAINT: Preoperative Examination HPI: Patient present to [facility] for the above procedure. Patient here for routine Upper GI Endoscopy screening and Colonoscopy screening. Patient reports he has ulcerative pancolitis confirmed by last colonoscopy done on 02/2024. Patient denies any N/V/D or constipation. Denies any abdominal pain. Reports occasional blood in the stool. Patient denies any other problems at this time. Denies any family history of Colon cancer or other Gastric ca. Patient agreed to planned procedure. METS: Run a short distance (8.00 METs) Patient denies any CP/SOB with above activity. PAST MEDICAL HISTORY Diagnosis Date Allergy PSC (primary sclerosing cholangitis) Ulcerative colitis (HCC) PAST SURGICAL HISTORY Procedure Laterality Date ADENOIDECTOMY HX COLONOSCOPY SCREENING 02/02/2024 LIVER BIOPSY 12/05/2023 FAMILY HISTORY Problem Relation Age of Onset Diabetes Maternal Grandmother Diabetes Paternal Grandmother Stroke Paternal Grandmother Colon Cancer No Family History SOCIAL HISTORY: Social History Tobacco Use Smoking status: Never Smokeless tobacco: Never Vaping Use Vaping status: Never Used Substance Use Topics Alcohol use: Never Drug use: Never Prior to Admission medications as of 07/25/24 0722 Medication Sig Last Dose Taking qtabwylt19/iron/folate8/ps-dha (ENBRACE HR ORAL) 07/20/2024 Yes lactobacillus comb no.10 (PROBIOTIC) 20 billion cell cap Take by mouth. Yes Mesalamine (LIALDA) 1.2 gram EC tablet Take 4 tablets by mouth once daily. Take with food. Do not cut tablet. 07/24/2024 Yes fluticasone (FLONASE) 50 mcg/actuation nasal spray Yes No medication comments found. ALLERGIES Allergen Reactions Omnicef [Cefdinir] Anaphylaxis COMPLETE REVIEW OF SYSTEMS: PAIN ASSESSMENT: Pain Pain Level: 0 Pain Assessment: Assessment Tool: Verbal (Numeric Rating or Visual Analog Scale) General: No weight loss, malaise or fevers. Neuro: No neurological symptoms or problems; no hx of seizure or stroke Respiratory: No history of current cough, wheezing, dyspnea, or recent pneumonia; no hx of asthma, COPD, or RAYMOND Cardiovascular: No history of HTN requiring medication, no history of chest pain, palpitations, CHF, [place], cardiac surgery or stents GI: see HPI : No history of dysuria, frequency or incontinence, stones or chronic kidney disease Endocrine: Negative for Diabetes or thyroid disease Hematology: No history of bleeding or clotting disorder. No history of hematological symptoms or problems. Oncology: No history of oncological symptoms or problems. Psych: No history of psychiatric symptoms or problems. Musculoskeletal: Negative for joint pain or swelling, back pain or muscle pain. Skin: Negative for lesions, rash and itching. Objective PHYSICAL EXAM: MENTAL STATUS: alert, oriented to person, place and time HEENT: Normocephalic/atraumatic, pharynx clear LUNGS: CTA, no wheezing CARDIAC: RRR, no murmur ABDOMEN: Abdomen soft, non-tender, BS normal, No masses or organomegaly EXTREMITIES: 2+ pedal pulses, no pedal edema 07/25/24 0722 BP: 129/84 Pulse: (!) 57 Resp: 16 Temp: 36.4 C (97.5 F) TempSrc: Temporal Artery SpO2: 97% Weight: 76.7 kg (169 lb) Height: 185.4 cm (6' 1 ) Body mass index is 22.3 kg/m . Patient has the following medical conditions which may affect mariana-operative course Problem List Items Addressed This Visit Unprioritized Postprandial bloating Current Assessment & Plan EGD and colonoscopy today Relevant Orders EGD DIAGNOSTIC Pre-op examination - Primary Current Assessment & Plan Medical conditions which may affect the perioperative course were address in today's visit. PSC (primary sclerosing cholangitis) Current Assessment & Plan Reports monitored Ulcerative (chronic) pancolitis with rectal bleeding (HCC) Current Assessment & Plan Colonoscopy and EGD today Diagnosis: 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) [K51.011] Postprandial bloating [R14.0] Planned Procedure: Colonoscopy and EGD The Following Tests/Procedures Have Been Initiated: IV start and Maintenance fluid for the procedure. ANESTHESIA FINDINGS: Significant Anesthesia Considerations: None FAMILY PROBLEMS WITH ANESTHESIA: no history of adverse anesthetic event Planned Anesthetic: MAC I spent a total of 20 minutes on the date of the service which included preparing to see the patient, [id number] patient care, completing clinical documentation, and performing a medically appropriate examination. Instructions Given to Patient: Patient given verbal preop instructions and voices comprehension and compliance. SIGNATURE: Jere Valdez APRN.CNP PATIENT NAME: Ayaz Lopez DATE: July 25, 2024 TIME: 7:15 AM PAGER/CONTACT #: T [facility] 07-25-2024 History and physical note Endoscopy pre-operative H&P H&P completed prior to the start time of the procedure. IMPRESSION AND PLAN HPI: This is a 23 year old male. For EGD and colonoscopy. Pertinent Review of Systems: GI: See HPI All other reviewed and negative other than HPI. PAST MEDICAL HISTORY: PAST MEDICAL HISTORY Diagnosis Date Allergy PSC (primary sclerosing cholangitis) Ulcerative colitis (HCC) PAST SURGICAL HISTORY: PAST SURGICAL HISTORY Procedure Laterality Date ADENOIDECTOMY HX COLONOSCOPY SCREENING 02/02/2024 LIVER BIOPSY 12/05/2023 OBJECTIVE: PHYSICAL EXAM: VITALS: BP 129/84 Pulse (!) 57 Temp 36.4 C (97.5 F) (Temporal Artery) Resp 16 Ht 185.4 cm (6' 1 ) Wt 76.7 kg (169 lb) SpO2 97% BMI 22.30 kg/m General appearance: A&Ox3 Respiratory: Normal chest expansion. No audible wheezes. CVS: No shortness of breath, no extremity edema. Regular pulse. Plan: OK to proceed with endoscopy. SIGNATURE: Uri Medina MD PATIENT NAME: Ay[facility] 07-25-2024 History and physical note HISTORY AND PHYSICAL EXAMINATION SERVICE DATE: 07/25/2024 SERVICE TIME: 7:20 AM PRIMARY CARE PHYSICIAN: Kyra Mendoza MD REASON FOR VISIT: The reason for this visit is To perform a comprehensive review of the patients past medical history, assess their current health status and obtain any additional testing required based on anesthesia guidelines. To assess and identify potential anesthesia problems, particularly those that may suggest potential complications or contraindications to the planned procedure. The patient has the following: ACTIVE PROBLEM LIST Abnormal Liver Function Tests Psc (Primary Sclerosing Cholangitis) Pre-Op Examination Ulcerative (Chronic) Pancolitis With Rectal Bleeding (Hcc) Postprandial Bloating Subjective CHIEF COMPLAINT: Preoperative Examination HPI: Patient present to [facility] for the above procedure. Patient here for routine Upper GI Endoscopy screening and Colonoscopy screening. Patient reports he has ulcerative pancolitis confirmed by last colonoscopy done on 02/2024. Patient denies any N/V/D or constipation. Denies any abdominal pain. Reports occasional blood in the stool. Patient denies any other problems at this time. Denies any family history of Colon cancer or other Gastric ca. Patient agreed to planned procedure. METS: Run a short distance (8.00 METs) Patient denies any CP/SOB with above activity. PAST MEDICAL HISTORY Diagnosis Date Allergy PSC (primary sclerosing cholangitis) Ulcerative colitis (HCC) PAST SURGICAL HISTORY Procedure Laterality Date ADENOIDECTOMY HX COLONOSCOPY SCREENING 02/02/2024 LIVER BIOPSY 12/05/2023 FAMILY HISTORY Problem Relation Age of Onset Diabetes Maternal Grandmother Diabetes Paternal Grandmother Stroke Paternal Grandmother Colon Cancer No Family History SOCIAL HISTORY: Social History Tobacco Use Smoking status: Never Smokeless tobacco: Never Vaping Use Vaping status: Never Used Substance Use Topics Alcohol use: Never Drug use: Never Prior to Admission medications as of 07/25/24 0722 Medication Sig Last Dose Taking /iron/folate8/ps-dha (ENBRACE HR ORAL) 07/20/2024 Yes lactobacillus comb no.10 (PROBIOTIC) 20 billion cell cap Take by mouth. Yes Mesalamine (LIALDA) 1.2 gram EC tablet Take 4 tablets by mouth once daily. Take with food. Do not cut tablet. 07/24/2024 Yes fluticasone (FLONASE) 50 mcg/actuation nasal spray Yes No medication comments found. ALLERGIES Allergen Reactions Omnicef [Cefdinir] Anaphylaxis COMPLETE REVIEW OF SYSTEMS: PAIN ASSESSMENT: Pain Pain Level: 0 Pain Assessment: Assessment Tool: Verbal (Numeric Rating or Visual Analog Scale) General: No weight loss, malaise or fevers. Neuro: No neurological symptoms or problems; no hx of seizure or stroke Respiratory: No history of current cough, wheezing, dyspnea, or recent pneumonia; no hx of asthma, COPD, or RAYMOND Cardiovascular: No history of HTN requiring medication, no history of chest pain, palpitations, CHF, [place], cardiac surgery or stents GI: see HPI : No history of dysuria, frequency or incontinence, stones or chronic kidney disease Endocrine: Negative for Diabetes or thyroid disease Hematology: No history of bleeding or clotting disorder. No history of hematological symptoms or problems. Oncology: No history of oncological symptoms or problems. Psych: No history of psychiatric symptoms or problems. Musculoskeletal: Negative for joint pain or swelling, back pain or muscle pain. Skin: Negative for lesions, rash and itching. Objective PHYSICAL EXAM: MENTAL STATUS: alert, oriented to person, place and time HEENT: Normocephalic/atraumatic, pharynx clear LUNGS: CTA, no wheezing CARDIAC: RRR, no murmur ABDOMEN: Abdomen soft, non-tender, BS normal, No masses or organomegaly EXTREMITIES: 2+ pedal pulses, no pedal edema 07/25/24 0722 BP: 129/84 Pulse: (!) 57 Resp: 16 Temp: 36.4 C (97.5 F) TempSrc: Temporal Artery SpO2: 97% Weight: 76.7 kg (169 lb) Height: 185.4 cm (6' 1 ) Body mass index is 22.3 kg/m . Patient has the following medical conditions which may affect mariana-operative course Problem List Items Addressed This Visit Unprioritized Postprandial bloating Current Assessment & Plan EGD and colonoscopy today Relevant Orders EGD DIAGNOSTIC Pre-op examination - Primary Current Assessment & Plan Medical conditions which may affect the perioperative course were address in today's visit. PSC (primary sclerosing cholangitis) Current Assessment & Plan Reports monitored Ulcerative (chronic) pancolitis with rectal bleeding (HCC) Current Assessment & Plan Colonoscopy and EGD today Diagnosis: 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) [K51.011] Postprandial bloating [R14.0] Planned Procedure: Colonoscopy and EGD The Following Tests/Procedures Have Been Initiated: IV start and Maintenance fluid for the procedure. ANESTHESIA FINDINGS: Significant Anesthesia Considerations: None FAMILY PROBLEMS WITH ANESTHESIA: no history of adverse anesthetic event Planned Anesthetic: MAC I spent a total of 20 minutes on the date of the service which included preparing to see the patient, [id number] patient care, completing clinical documentation, and performing a medically appropriate examination. Instructions Given to Patient: Patient given verbal preop instructions and voices comprehension and compliance. SIGNATURE: Jere Valdez APRN.CNP PATIENT NAME: Ayaz Lopez DATE: July 25, 2024 TIME: 7:15 AM PAGER/CONTACT #: Endoscopy pre-operative H&P H&P completed prior to the start time of the procedure. IMPRESSION AND PLAN HPI: This is a 23 year old male. For EGD and colonoscopy. Pertinent Review of Systems: GI: See HPI All other reviewed and negative other than HPI. PAST MEDICAL HISTORY: PAST MEDICAL HISTORY Diagnosis Date Allergy PSC (primary sclerosing cholangitis) Ulcerative colitis (HCC) PAST SURGICAL HISTORY: PAST SURGICAL HISTORY Procedure Laterality Date ADENOIDECTOMY HX COLONOSCOPY SCREENING 02/02/2024 LIVER BIOPSY 12/05/2023 OBJECTIVE: PHYSICAL EXAM: VITALS: BP 129/84 Pulse (!) 57 Temp 36.4 C (97.5 F) (Temporal Artery) Resp 16 Ht 185.4 cm (6' 1 ) Wt 76.7 kg (169 lb) SpO2 97% BMI 22.30 kg/m General appearance: A&Ox3 Respiratory: Normal chest expansion. No audible wheezes. CVS: No shortness of breath, no extremity edema. Regular pulse. Plan: OK to proceed with endoscopy. SIGNATURE: Uri Medina MD PATIENT NAME: Ayaz Lopez documented in this encounter [facility] 07-25-2024 Surgery Surgical operation note OPERATIVE/PROCEDURE REPORT LOG ID: [id number] Surgery/Procedure Date: 07/25/2024 Incision/Procedure Start Time: Incision Close/Procedure End Time: 8:55 AM Surgeon(s)/Proceduralist(s) and [employer] Supervisor(s): Uri Medina MD Procedure(s): Esophagogastroduodenoscopy (EGD) with biopsy Colonoscopy with biopsy Anesthesia: Monitored Anesthesia Care Brief History: 23 yo Male with h/o ulcerative pancolitis, PSC and bloating, (+) genes for celiac disesae. Not eating gluten free at present time. Procedure Details: The patient was placed in the left lateral decubitus position. A bite block was placed and medications administered as above. The Olympus gastroscope was used to intubate the oropharynx and esophagus with ease. We proceeded down to the second part of the duodenum. The duodenal mucosa and bulb appeared normal. Biopsies were taken to rule out celiac disease (Jar 1). We then withdrew into the stomach and visualized a normal antrum and body. Retroflexion was performed and this showed a normal fundus and cardia. The squamocolumnar junction, GE junction and esophagus appeared normal. The Z-line was at 44 cm. The scope was then withdrawn and the patient tolerated the procedure well. The patient was then turned around for the colonoscopy. A digital rectal exam was performed and this was normal. The Olympus colonoscope was introduced into the rectum and advanced to the terminal ileum. The procedure was not technically difficult. The cecum was identified by the appendiceal orifice and the ileocecal valve. The bowel preparation was good and the total withdrawal time was 9 minutes. The terminal ileum was normal for 15 cm . The scope was then slowly withdrawn and the mucosal folds examined in detail. There were no abnormalities in the cecum, ascending colon, transverse colon, descending colon, sigmoid or rectum. Surveillance biopsies were taken in the cecum/ascending colon (Jar 2), transverse colon (Jar 3), descending colon (Jar 4), and sigmoid colon and rectum (Jar 5). Retroflexion was performed and this showed normal retroflexion. Visually there was no inflammation, loss of vascular pattern, bleeding or ulceration. UCEIS = 0. The scope was then withdrawn and the patient tolerated the procedure well. Pre-Op/Pre-Procedure Diagnosis: 1) NUVIA pancolitis with PSC 2) Bloating 3) (+) genes for celiac disease Post-Op/Post-Procedure Diagnosis: 1) Normal gastroscopy. Duodenal bx 2) Normal terminal ileum 3) Normal entire colon, bx taken from Cecum/ascending colon, transverse colon, descending colon, sigmoid/rectum. Specimens: See above EBL: Minimal Complications: None Recommendations: Follow up pathology Repeat colonoscopy 1-2 years depending upon clinical course I/primary surgeon/proceduralist performed the entire procedure. Uri Medina MD SIGNATURE:Uri Medina MD PATIENT NAME: Ayaz Lopez DATE: July 25, 2024 TIME: 8:58 AM PAGER/CONTACT #: [phone] [facility] 07-25-2024 Surgical operation note OPERATIVE/PROCEDURE REPORT LOG ID: [id number] Surgery/Procedure Date: 07/25/2024 Incision/Procedure Start Time: Incision Close/Procedure End Time: 8:55 AM Surgeon(s)/Proceduralist(s) and [employer] Supervisor(s): Uri Medina MD Procedure(s): Esophagogastroduodenoscopy (EGD) with biopsy Colonoscopy with biopsy Anesthesia: Monitored Anesthesia Care Brief History: 23 yo Male with h/o ulcerative pancolitis, PSC and bloating, (+) genes for celiac disesae. Not eating gluten free at present time. Procedure Details: The patient was placed in the left lateral decubitus position. A bite block was placed and medications administered as above. The Olympus gastroscope was used to intubate the oropharynx and esophagus with ease. We proceeded down to the second part of the duodenum. The duodenal mucosa and bulb appeared normal. Biopsies were taken to rule out celiac disease (Jar 1). We then withdrew into the stomach and visualized a normal antrum and body. Retroflexion was performed and this showed a normal fundus and cardia. The squamocolumnar junction, GE junction and esophagus appeared normal. The Z-line was at 44 cm. The scope was then withdrawn and the patient tolerated the procedure well. The patient was then turned around for the colonoscopy. A digital rectal exam was performed and this was normal. The Olympus colonoscope was introduced into the rectum and advanced to the terminal ileum. The procedure was not technically difficult. The cecum was identified by the appendiceal orifice and the ileocecal valve. The bowel preparation was good and the total withdrawal time was 9 minutes. The terminal ileum was normal for 15 cm . The scope was then slowly withdrawn and the mucosal folds examined in detail. There were no abnormalities in the cecum, ascending colon, transverse colon, descending colon, sigmoid or rectum. Surveillance biopsies were taken in the cecum/ascending colon (Jar 2), transverse colon (Jar 3), descending colon (Jar 4), and sigmoid colon and rectum (Jar 5). Retroflexion was performed and this showed normal retroflexion. Visually there was no inflammation, loss of vascular pattern, bleeding or ulceration. UCEIS = 0. The scope was then withdrawn and the patient tolerated the procedure well. Pre-Op/Pre-Procedure Diagnosis: 1) NUVIA pancolitis with PSC 2) Bloating 3) (+) genes for celiac disease Post-Op/Post-Procedure Diagnosis: 1) Normal gastroscopy. Duodenal bx 2) Normal terminal ileum 3) Normal entire colon, bx taken from Cecum/ascending colon, transverse colon, descending colon, sigmoid/rectum. Specimens: See above EBL: Minimal Complications: None Recommendations: Follow up pathology Repeat colonoscopy 1-2 years depending upon clinical course I/primary surgeon/proceduralist performed the entire procedure. Uri Medina MD SIGNATURE:Uir Medina MD PATIENT NAME: Ayaz Lopez DATE: July 25, 2024 TIME: 8:58 AM PAGER/CONTACT #: [phone] documented in this encounter [facility] 07-11-2024 History of Present illness Narrative Radiology Service Progress Note DATE OF SERVICE: July 11, 2024 TIME: 8:27 AM PATIENT IDENTITY VERIFICATION COMPLETED USING TWO (2) STANDARD IDENTIFIERS: Name and Date of confirmed by patient verbally. FALL SCREENING: Has the patient had 2 falls in the last year or 1 fall with injury or currently using an Ambulatory Assistive Device (Walker, Cane, Wheelchair, Crutches, etc.)? No PATIENT GENDER DATA: Male PATIENT RELEVANT IMPLANT DATA REVIEWED: Yes PATIENT PRESENTS WITH AN IMPLANTABLE OR ATTACHED DRIVER: No ALLERGIES: Reviewed and unchanged CONTRAST ALLERGY: NO. EXAM: MRI - CONTRAST TYPE: GROUP II PERIPHERAL IV DATA: Ambulatory: A peripheral IV was started in the Left with a Angio cath: 22 gauge. RADIOLOGY DEPARTMENT: MR; Exam(s) Completed: Body: Pancreas/Biliary SIGNATURE: Leonor Sotomayor RT Andreas(R) PATIENT NAME: Ayaz Lopez DATE: July 11, 2024 TIME: 8:27 AM documented in this encounter [facility] 07-11-2024 Note HNO ID: [id number] Author: LEONOR OLIVEROS RT(R) Service: ? Author Type: Technologist Type: Progress Notes Filed: 07/11/2024 08:28 Note Text: Radiology Service Progress Note DATE OF SERVICE: July 11, 2024 TIME: 8:27 AM PATIENT IDENTITY VERIFICATION COMPLETED USING TWO (2) STANDARD IDENTIFIERS: Name and Date of confirmed by patient verbally. FALL SCREENING: Has the patient had 2 falls in the last year or 1 fall with injury or currently using an Ambulatory Assistive Device (Walker, Cane, Wheelchair, Crutches, etc.)? No PATIENT GENDER DATA: Male PATIENT RELEVANT IMPLANT DATA REVIEWED: Yes PATIENT PRESENTS WITH AN IMPLANTABLE OR ATTACHED DRIVER: No ALLERGIES: Reviewed and unchanged CONTRAST ALLERGY: NO. EXAM: MRI - CONTRAST TYPE: GROUP II PERIPHERAL IV DATA: Ambulatory: A peripheral IV was started in the Left with a Angio cath: 22 gauge. RADIOLOGY DEPARTMENT: MR; Exam(s) Completed: Body: Pancreas/Biliary SIGNATURE: Leonor Sotomayor RT Andreas(R) PATIENT NAME: Ayaz Lopez DATE: July 11, 2024 TIME: 8:27 AM [facility] 06-21-2024 Note Addended by: NEETU CM on: 06/21/2024 02:31 PM Modules accepted: Orders [facility] 06-21-2024 Miscellaneous Notes Addended by: NEETU MARINO on: 06/21/2024 02:31 PM Modules accepted: Orders documented in this encounter [facility] 06-21-2024 Instructions Codi Dunn PA-C - 06/21/2024 2:06 PM EDT - Start OTC probiotic with at least 15 billion live cultures, 10+ strains COLONOSCOPY BOWEL PREPARATION INSTRUCTIONS MiraLAX Your doctor has scheduled you for a colonoscopy. To have a successful colonoscopy, you must have a clean colon, that is empty. A clean colon allows your doctor to see the entire colon & diagnose issues like polyps or cancer. For doctors, a clean colon is like driving on a sita day; a dirty colon like driving in a storm. It is very important that you follow these instructions exactly, or your colonoscopy may not be as effective, could be canceled, and you may need to do the bowel prep and colonoscopy again. TRANSPORTATION REQUIREMENTS You are receiving IV sedation. For your safety, a responsible adult escort must accompany you to and from your procedure: Your adult escort MUST be present with you at check-in for your colonoscopy. Your adult escort MUST remain in the endoscopy area until you are discharged. Your adult escort MUST transport you home once you are discharged. You are NOT allowed to operate any form of transportation (i.e. drive a car, bicycle, etc) or leave the Endoscopy Center ALONE. It is not safe to do so. If you cannot meet these requirements, your procedure will be canceled. MEDICATION REQUIREMENTS For your safety, certain medications will need to be stopped or adjusted before you can have your procedure: BLOOD THINNERS: If you take blood thinners, such as Coumadin (warfarin), Plavix (clopidogrel), Ticlid (ticlopidine hydrochloride), Agrylin (anagrelide), Xarelto (Rivaroxaban), Pradaxa (Dabigatran), Eliquis (Apixaban), or Effient (Prasugrel), contact the physician who is prescribing these medications at least 2 weeks prior to your procedure to discuss any necessary adjustments. DIABETES: If you take medications for diabetes, your dosage may need to be adjusted. If you are being treated for diabetes with insulin, diabetic pills, or other injectable medications do not take your REGULAR dose after midnight on the day of your procedure. If you are taking any other types of insulin such as Lantus, Humalog, NPH (long-acting insulin), or 70/30 insulin, take half your normal dose the day before your procedure. DIABETES/WEIGHT MANAGEMENT: If you take medications for weight-loss, your dosage may need to be adjusted Contact the doctor who prescribes this medication for further instructions. If you take medications for weight-loss like semaglutide (Ozempic, Wegovy, Rybelsus), dulaglutide (Trulicity), liraglutide (Victoza, Saxenda), exenatide (Byetta, Bydureon), or lixisenatide (Adylyxin), stop your medication 1 week prior to your procedure. If you take medications like canagliflozin (Invokana), dapagliflozin (Farxiga, Forxiga), empagliflozin (Jardiance), or ertugliflozin (Steglatro), stop your medication 1 day prior to your procedure. IRON: If you take iron pills, STOP them 1 week BEFORE your procedure, may resume after. OTHER MEDS: May take all other medications (including aspirin, antibiotics, water pills / diuretics like Lasix or Metolozone, blood pressure meds, etc.) at their usual scheduled time with water. DIET REQUIREMENTS The day before your colonoscopy, you may have a clear liquid diet (see below). The day of your colonoscopy, you may continue a clear liquid diet until 3 hours before your colonoscopy. Within 3 hours of your colonoscopy, take only any medications (as above) with a sip of water. Clear Liquid Diet Broth (chicken, beef or vegetable broth or bullion. Just the broth, no solids). Water Coffee or Tea (NO milk or creamer), but sugar and sugar substitutes are allowed. Clear liquids including clear, yellow, green, blue (NO red, NO orange, NO purple) Sodas / soft drinks; Gatorade or other sports drinks Fruit juice (strained; no-pulp); Osmar-Aid or flavored drinks Plain Jell-O or other gelatins Popsicles or hard candy Bowel prep can work differently from person to person. Some people's bowels move slowly and they may need different instructions. Please see your doctor in office or virtually for personalized bowel prep instructions if you have: BOWEL PREPARATION (MIRALAX/GATORADE) Split Dosing Bowel Prep: This means drinking your bowel prep in two doses. Split dosing helps clean your colon better and makes it less likely that your procedure will be canceled. You will need to purchase the following (no prescriptions are needed): 64 ounces Gatorade, Propel, Crystal Lite or other noncarbonated clear liquid sports drink (NOT red, orange, or purple). Diabetic patients buy sugar-free, e.g. Gatorade G2 4 Dulcolax laxative tablets containing 5mg bisacodyl each (do not buy the stool softener) 8.3 oz MiraLAX (238g) powder or generic polyethylene glycol 3350 (find in laxative aisle) The day before your colonoscopy mix 64 oz of the sports drink with 8.3 oz MiraLAX (238 g) in a pitcher. Stir or shake until MiraLAX completely dissolved. Chill if desired. On the evening before your colonoscopy: 5 PM take 4 Dulcolax laxative tablets with water by mouth. 6 PM drink the first half of the Gatorade/MiraLAX solution Drink one 8-ounce glass every 15 minutes. Six hours before your colonoscopy, drink the second half of the solution. Drink one 8-ounce glass every 15 minutes. You may continue a clear liquid diet until 3 hours before your colonoscopy. Bowel prep can work differently from person to person. Some people's bowels move slowly and they may need different instructions. Please see your doctor in office or virtually for personalized bowel prep instructions if you have: Medical condition that needs special accommodations Had a poor bowel prep results or failed bowel prep attempts in the past. Had difficulty with anesthesia during the procedure. FREQUENTLY ASKED QUESTIONS Q: What if I suffer from constipation? A: Recommend taking extra laxatives to resolve your constipation days prior to entering the bowel prep day. Q: What if have had prior poor preps results in past? A: Contact your physician as you will likely need additional bowel prep instructions. Q: What if I have motility issues like Parkinson's, MS (multiple sclerosis), wheelchair dependent, etc.? or on medications that slow colonic transit times (narcotics, gabapentin, anticholinergic medications etc.) A: Contact your physician as you will likely need extra time and additional laxatives to complete your bowel prep. Q: What if I cannot drink large volume of liquid? A: Start your prep 2-3 hours earlier to allow yourself more time to complete the entire prep. Q: What if I had bariatric surgery? Do I still have to complete the entire prep? A: Yes, gastric bypass surgery involves the stomach & small bowel. You may need to drink smaller amounts, slower (may need more time to complete your bowel prep). Gastric bypass does not alter the length of your colon so you will need to complete the entire bowel prep, it may just take longer time to complete it. Q: What if I am on dialysis? A: Please consult your counterintelligence analyst prior to scheduling to get instructions pertinent to you. In general, dialysis patients take the Golytely bowel prep and have the procedure same day of their dialysis (colonoscopy in AM, dialysis in PM). Q: How do I know if something is considered as clear liquid diet? A: If you can pour it in a glass and you can see through it, it is considered clear liquid Q: Can I eat nuts, seeds, beans, popcorn, dried fruits, vegetables & fruits that have skin peel? A: No, you will need to not eat these items starting 3 days prior to procedure. Q: Can I take Uber/Lyft/taxi/bus home? A: An adult MUST be present with you at check-in for your colonoscopy and remain in the endoscopy area until you are discharged. You can take Uber home only if this adult escort is with you at check in, remain in the endoscopy area until you are discharged, and takes the Uber with you to home. Q: Can I sleep it off here and drive myself home? A: No, you must have an adult with you at time of procedure check in, remain in the endoscopy center during your procedure, and drive you home. You cannot drive a vehicle after your procedure the rest of the day. Q: What if I can't finish my bowel prep? A: If you cannot complete your entire bowel prep, there is high likelihood that your colonoscopy will need to be rescheduled due to inadequate prep quality. documented in this encounter [facility] 06-21-2024 Note HNO ID: [id number] Author: CODI DUNN PA-C Service: ? Author Type: Physician [employer] Supervisor Type: Progress Notes Filed: 06/21/2024 14:24 Note Text: CHIEF COMPLAINT: Patient presents with: Ulcerative pancolitis HPI Ayaz Lopez is a 23 year old male here today for Ulcerative pancolitis. 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 Most recent colonoscopy 02/2024 confirmed findings of UC pancolitis. Started on Lialda 4 tabs daily last OV Tolerating Lialda well. Bms 2 per day, formed to loose consistency, occasional blood coating stools 1-2x per week but includes overall this has been improving Notes occasional clear watery rectal discharge when holding Bms too long Limiting gluten in diet give h/o genetic risk positive but not completely GF. Having regular postprandial bloating even with smaller meals Following counselor through outside network Denies abd pain, N/V, purulent discharge, rectal pain Celiac 01/2024 negative for active disease, positive for genetic risk Colon 02/2024 Impression: - Pancolitis ulcerative colitis with UCEIS total score of 3 (mild disease), quiescent since last examination. Biopsied. - Non-bleeding internal hemorrhoids. - The examined portion of the ileum was normal. Biopsied. - The examination was otherwise normal. Component FINAL DIAGNOSIS A. Colon, cecum, biopsy: - Chronic severely active colitis with focal erosion. - Negative for granuloma and dysplasia. B. Terminal ileum, biopsy: - Small intestinal mucosa with no significant pathologic abnormality. - Negative for granuloma, pyloric gland metaplasia, and dysplasia. C. Colon, ascending, biopsy: - Chronic moderately active colitis. - Negative for granuloma and dysplasia. D. Colon, transverse, biopsy: - Chronic moderately active colitis. - Negative for granuloma and dysplasia. E. Colon, descending, biopsy: - Chronic severely active colitis with focal erosion. - Negative for granuloma and dysplasia. F. Colon, sigmoid, biopsy: - Chronic mildly active colitis. - Negative for granuloma and dysplasia. G. Rectum, biopsy: - Chronic mildly active colitis. - Negative for granuloma and dysplasia. OV 02/2024 Accompanied my mom Ayaz Lopez is a 23 year old male who presents for Ulcerative Colitis (Colon 02/02/24, MRI 12/05/23). 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 Most recent colonoscopy 02/2024 confirmed findings of UC pancolitis. Bms are 2 per day, formed consistency, occasional blood tinged stools 2x per week. Notes regular fatigue. Denies family hx of IBD, abd pain, weight loss, GERD, N/V, NSAID usage, joint pains, skin changes, vision changes. Current Outpatient Medications Medication Sig Mesalamine (LIALDA) 1.2 gram EC tablet Take 4 tablets by mouth once daily. Take with food. Do not cut tablet. fluticasone (FLONASE) 50 mcg/actuation nasal spray No current facility-administered medications for this visit. ALLERGIES Allergen Reactions Omnicef [Cefdinir] Unknown Social History Tobacco Use Smoking status: Never Smokeless tobacco: Never Vaping Use Vaping status: Never Used Substance Use Topics Alcohol use: Never Drug use: Never PAST MEDICAL HISTORY Diagnosis Date Allergy PSC (primary sclerosing cholangitis) Ulcerative colitis (HCC) PAST SURGICAL HISTORY Procedure Laterality Date ADENOIDECTOMY HX COLONOSCOPY SCREENING 02/02/2024 LIVER BIOPSY 12/05/2023 FAMILY HISTORY Problem Relation Age of Onset Colon Cancer No Family History REVIEW OF SYSTEMS Review of Systems All other systems reviewed and are negative. PHYSICAL EXAM BP 112/68 Pulse 78 Ht 185.4 cm (6' 1 ) Wt 76.7 kg (169 lb) BMI 22.30 kg/m? Physical Exam Constitutional: General: He is not in acute distress. Appearance: Normal appearance. He is normal weight. He is not ill-appearing, toxic-appearing or diaphoretic. HENT: Head: Normocephalic and atraumatic. Nose: Nose normal. Eyes: General: No scleral icterus. Right eye: No discharge. Left eye: No discharge. Extraocular Movements: Extraocular movements intact. Conjunctiva/sclera: Conjunctivae normal. Pupils: Pupils are equal, round, and reactive to light. Cardiovascular: Rate and Rhythm: Normal rate and regular rhythm. Pulses: Normal pulses. Heart sounds: Normal heart sounds. No murmur heard. No friction rub. No gallop. Pulmonary: Effort: No respiratory distress. Breath sounds: Normal breath sounds. No stridor. No wheezing, rhonchi or rales. Chest: Chest wall: No tenderness. Abdominal: General: Abdomen is flat. Bowel sounds are normal. There is no distension. Palpations: Abdomen is soft. There is no mass. Tenderness: There is no abdominal tenderness. There is no right CVA tenderness, left CVA tenderness, guarding or rebound. Hernia: No hernia is present. Musculoskeletal: General: Normal ra (more content not included)... [facility] 06-21-2024 History of Present illness Narrative CHIEF COMPLAINT: Patient presents with: Ulcerative pancolitis HPI Ayaz Lopez is a 23 year old male here today for Ulcerative pancolitis. 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 Most recent colonoscopy 02/2024 confirmed findings of UC pancolitis. Started on Lialda 4 tabs daily last OV Tolerating Lialda well. Bms 2 per day, formed to loose consistency, occasional blood coating stools 1-2x per week but includes overall this has been improving Notes occasional clear watery rectal discharge when holding Bms too long Limiting gluten in diet give h/o genetic risk positive but not completely GF. Having regular postprandial bloating even with smaller meals Following counselor through outside network Denies abd pain, N/V, purulent discharge, rectal pain Celiac 01/2024 negative for active disease, positive for genetic risk Colon 02/2024 Impression: - Pancolitis ulcerative colitis with UCEIS total score of 3 (mild disease), quiescent since last examination. Biopsied. - Non-bleeding internal hemorrhoids. - The examined portion of the ileum was normal. Biopsied. - The examination was otherwise normal. Component FINAL DIAGNOSIS A. Colon, cecum, biopsy: - Chronic severely active colitis with focal erosion. - Negative for granuloma and dysplasia. B. Terminal ileum, biopsy: - Small intestinal mucosa with no significant pathologic abnormality. - Negative for granuloma, pyloric gland metaplasia, and dysplasia. C. Colon, ascending, biopsy: - Chronic moderately active colitis. - Negative for granuloma and dysplasia. D. Colon, transverse, biopsy: - Chronic moderately active colitis. - Negative for granuloma and dysplasia. E. Colon, descending, biopsy: - Chronic severely active colitis with focal erosion. - Negative for granuloma and dysplasia. F. Colon, sigmoid, biopsy: - Chronic mildly active colitis. - Negative for granuloma and dysplasia. G. Rectum, biopsy: - Chronic mildly active colitis. - Negative for granuloma and dysplasia. OV 02/2024 Accompanied my mom Ayaz Lopez is a 23 year old male who presents for Ulcerative Colitis (Colon 02/02/24, MRI 12/05/23). 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 Most recent colonoscopy 02/2024 confirmed findings of UC pancolitis. Bms are 2 per day, formed consistency, occasional blood tinged stools 2x per week. Notes regular fatigue. Denies family hx of IBD, abd pain, weight loss, GERD, N/V, NSAID usage, joint pains, skin changes, vision changes. Current Outpatient Medications Medication Sig Mesalamine (LIALDA) 1.2 gram EC tablet Take 4 tablets by mouth once daily. Take with food. Do not cut tablet. fluticasone (FLONASE) 50 mcg/actuation nasal spray No current facility-administered medications for this visit. ALLERGIES Allergen Reactions Omnicef [Cefdinir] Unknown Social History Tobacco Use Smoking status: Never Smokeless tobacco: Never Vaping Use Vaping status: Never Used Substance Use Topics Alcohol use: Never Drug use: Never PAST MEDICAL HISTORY Diagnosis Date Allergy PSC (primary sclerosing cholangitis) Ulcerative colitis (HCC) PAST SURGICAL HISTORY Procedure Laterality Date ADENOIDECTOMY HX COLONOSCOPY SCREENING 02/02/2024 LIVER BIOPSY 12/05/2023 FAMILY HISTORY Problem Relation Age of Onset Colon Cancer No Family History REVIEW OF SYSTEMS Review of Systems All other systems reviewed and are negative. PHYSICAL EXAM BP 112/68 Pulse 78 Ht 185.4 cm (6' 1 ) Wt 76.7 kg (169 lb) BMI 22.30 kg/m Physical Exam Constitutional: General: He is not in acute distress. Appearance: Normal appearance. He is normal weight. He is not ill-appearing, toxic-appearing or diaphoretic. HENT: Head: Normocephalic and atraumatic. Nose: Nose normal. Eyes: General: No scleral icterus. Right eye: No discharge. Left eye: No discharge. Extraocular Movements: Extraocular movements intact. Conjunctiva/sclera: Conjunctivae normal. Pupils: Pupils are equal, round, and reactive to light. Cardiovascular: Rate and Rhythm: Normal rate and regular rhythm. Pulses: Normal pulses. Heart sounds: Normal heart sounds. No murmur heard. No friction rub. No gallop. Pulmonary: Effort: No respiratory distress. Breath sounds: Normal breath sounds. No stridor. No wheezing, rhonchi or rales. Chest: Chest wall: No tenderness. Abdominal: General: Abdomen is flat. Bowel sounds are normal. There is no distension. Palpations: Abdomen is soft. There is no mass. Tenderness: There is no abdominal tenderness. There is no right CVA tenderness, left CVA tenderness, guarding or rebound. Hernia: No hernia is present. Musculoskeletal: General: Normal range of motion. Cervical back: Normal range of motion and neck supple. Skin: General: Skin is warm and dry. Neurological: General: No focal deficit present. Mental Status: He is alert and oriented to person, place, and time. Psychiatric: Mood and Affect: Mood normal. Behavior: Behavior normal. Assessment/Plan (K51.011) 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) (primary encounter diagnosis) (R14.0) Postprandial bloating (R45.89) Anxiety about health 1. 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) - CALPROTECTIN,FECAL - COMPLETE BLOOD COUNT AND DIFFERENTIAL; Future - BASIC METABOLIC PANEL; Future - PANC ELASTASE, FECAL - COLONOSCOPY DIAGNOSTIC; Future - EGD DIAGNOSTIC; Future - Continue Lialda as prescribed - Start OTC probiotic with at least 15 billion live cultures, 10+ strains - Adhering to limited gluten diet - Repeat colonoscopy to assess for response with tx - Repeat labs, stool studies 2. Postprandial bloating - EGD DIAGNOSTIC; Future 3. Anxiety about health - CONSULT TO PSYCHIATRY; Future - Following with counselor but feels as though anxiety could be controlled somewhat better, referral to Psych placed Follow up in office 6 months/PRN. I spent a total of 20 minutes on the date of the service which included preparing to see the patient, [id number] patient care, completing clinical documentation, obtaining and/or reviewing separately obtained history, performing a medically appropriate examination, counseling and educating the patient/family/caregiver, ordering medications, tests, or procedures, communicating with other HCPs (not separately reported), independently interpreting results (not separately reported), communicating results to the patient/family/caregiver, and care coordination (not separately reported). Codi Dunn PA-C June 21, 2024 2:18 PM documented in this encounter [facility] 02-06-2024 Note HNO ID: [id number] Author: CODI DUNN PA-C Service: ? Author Type: Physician [employer] Supervisor Type: Progress Notes Filed: 02/08/2024 20:01 Note Text: CHIEF COMPLAINT: Patient presents with: Ulcerative Colitis: Colon 02/02/24, MRI 12/05/23 HPI: Accompanied my mom Ayaz Lopez is a 23 year old male who presents for Ulcerative Colitis (Colon 02/02/24, MRI 12/05/23). 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 Most recent colonoscopy 02/2024 confirmed findings of UC pancolitis. Bms are 2 per day, formed consistency, occasional blood tinged stools 2x per week. Notes regular fatigue. Denies family hx of IBD, abd pain, weight loss, GERD, N/V, NSAID usage, joint pains, skin changes, vision changes. Celiac 01/2024 negative for active disease, positive for genetic risk Colon 02/2024 Impression: - Pancolitis ulcerative colitis with UCEIS total score of 3 (mild disease), quiescent since last examination. Biopsied. - Non-bleeding internal hemorrhoids. - The examined portion of the ileum was normal. Biopsied. - The examination was otherwise normal. Component FINAL DIAGNOSIS A. Colon, cecum, biopsy: - Chronic severely active colitis with focal erosion. - Negative for granuloma and dysplasia. B. Terminal ileum, biopsy: - Small intestinal mucosa with no significant pathologic abnormality. - Negative for granuloma, pyloric gland metaplasia, and dysplasia. C. Colon, ascending, biopsy: - Chronic moderately active colitis. - Negative for granuloma and dysplasia. D. Colon, transverse, biopsy: - Chronic moderately active colitis. - Negative for granuloma and dysplasia. E. Colon, descending, biopsy: - Chronic severely active colitis with focal erosion. - Negative for granuloma and dysplasia. F. Colon, sigmoid, biopsy: - Chronic mildly active colitis. - Negative for granuloma and dysplasia. G. Rectum, biopsy: - Chronic mildly active colitis. - Negative for granuloma and dysplasia. Electronically signed by Ann Hollins Latest Ref Rng 01/06/2024 Albumin 3.9 - 4.9 g/dL 4.3 Bilirubin, Total 0.2 - 1.3 mg/dL 0.4 Bilirubin, Conjug <0.2 mg/dL <0.2 Alkaline Phosphatase 38 - 113 U/L 208 (H) AST 14 - 40 U/L 58 (H) ALT 10 - 54 U/L 126 (H) Protein, Total 6.3 - 8.0 g/dL 7.3 TONIO Interpretation The HLA-DQ genotype of the patient is supportive of an increased risk of celiac disease. HLA-DQA1 Genotype HLA-DQA1*: 05, 01 HLA-DQB1 Genotype HLA-DQB1*: 02:01, 06 Celiac Risk Haplotype Positive Celiac Category Category 3 Transglutaminase IgG Abs <6 U/mL Transglutaminase IgG Abs Interpretation Negative Transglutaminase IgA Abs <4 U/mL Transglutaminase IgA Abs Interpretation Negative Vitamin E-alpha 6.0 - 23.0 mg/L 9.8 Vitamin E-gamma 0.3 - 3.2 mg/L 0.8 TSH 0.510 - 4.300 mIU/L Vitamin D 25 Hydroxy 31.0 - 80.0 ng/mL 33.5 Vitamin A 0.30 - 1.20 mg/L 0.32 Legend: (H) High Record Review: [facility] / Outside records reviewed. PAST MEDICAL HISTORY Diagnosis Date Allergy PSC (primary sclerosing cholangitis) Ulcerative colitis (HCC) PAST SURGICAL HISTORY Procedure Laterality Date ADENOIDECTOMY HX COLONOSCOPY SCREENING 02/02/2024 LIVER BIOPSY 12/05/2023 Allergies: ALLERGIES Allergen Reactions Omnicef [Cefdinir] Unknown Medications: Cetirizine (ZYRTEC) 10 mg cap fluticasone (FLONASE) 50 mcg/actuation nasal spray cetirizine (ZYRTEC) 1 mg/mL syrup Take by mouth. FAMILY HISTORY Problem Relation Age of Onset Colon Cancer No Family History Employer And Job Title: None on file Years Of Education Completed: Not specified Marital Status: Single Social History Tobacco Use Smoking status: Never Smokeless tobacco: Never Vaping Use Vaping Use: Never used Substance Use Topics Alcohol use: Never Drug use: Never Review of Systems: Review of Systems Constitutional: Positive for fatigue. Gastrointestinal: Positive for abdominal pain and blood in stool. All other systems reviewed and are negative. Are you taking any blood thinners? No Physical Examination: BP 112/70 Pulse (!) 58 Ht 185.4 cm (6' 1 ) Wt 79.8 kg (176 lb) BMI 23.22 kg/m? Physical Exam Constitutional: General: He is not in acute distress. Appearance: Normal appearance. He is normal weight. He is not ill-appearing, toxic-appearing or diaphoretic. HENT: Head: Normocephalic and atraumatic. Nose: Nose normal. Eyes: General: No scleral icterus. Right eye: No discharge. Left eye: No discharge. Extraocular Movements: Extraocular movements intact. Conjunctiva/sclera: Conjunctivae normal. Pupils: Pupils are equal, round, and reactive to light. Cardiovascular: Rate and Rhythm: Normal rate and regular rhythm. Pulses: Normal pulses. Heart sounds: Normal heart sounds. No murmur heard. No friction rub. No gallop. Pulmonary: Effort: No respiratory distress. Breath sounds: Normal breath sounds. No stridor. No wheezing, rhonchi or (more content not included)... [facility] 02-06-2024 History of Present illness Narrative CHIEF COMPLAINT: Patient presents with: Ulcerative Colitis: Colon 02/02/24, MRI 12/05/23 HPI: Accompanied my mom Ayaz Lopez is a 23 year old male who presents for Ulcerative Colitis (Colon 02/02/24, MRI 12/05/23). 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 Most recent colonoscopy 02/2024 confirmed findings of UC pancolitis. Bms are 2 per day, formed consistency, occasional blood tinged stools 2x per week. Notes regular fatigue. Denies family hx of IBD, abd pain, weight loss, GERD, N/V, NSAID usage, joint pains, skin changes, vision changes. Celiac 01/2024 negative for active disease, positive for genetic risk Colon 02/2024 Impression: - Pancolitis ulcerative colitis with UCEIS total score of 3 (mild disease), quiescent since last examination. Biopsied. - Non-bleeding internal hemorrhoids. - The examined portion of the ileum was normal. Biopsied. - The examination was otherwise normal. Component FINAL DIAGNOSIS A. Colon, cecum, biopsy: - Chronic severely active colitis with focal erosion. - Negative for granuloma and dysplasia. B. Terminal ileum, biopsy: - Small intestinal mucosa with no significant pathologic abnormality. - Negative for granuloma, pyloric gland metaplasia, and dysplasia. C. Colon, ascending, biopsy: - Chronic moderately active colitis. - Negative for granuloma and dysplasia. D. Colon, transverse, biopsy: - Chronic moderately active colitis. - Negative for granuloma and dysplasia. E. Colon, descending, biopsy: - Chronic severely active colitis with focal erosion. - Negative for granuloma and dysplasia. F. Colon, sigmoid, biopsy: - Chronic mildly active colitis. - Negative for granuloma and dysplasia. G. Rectum, biopsy: - Chronic mildly active colitis. - Negative for granuloma and dysplasia. Electronically signed by Ann Hollins Ref Rng 01/06/2024 Albumin 3.9 - 4.9 g/dL 4.3 Bilirubin, Total 0.2 - 1.3 mg/dL 0.4 Bilirubin, Conjug <0.2 mg/dL <0.2 Alkaline Phosphatase 38 - 113 U/L 208 (H) AST 14 - 40 U/L 58 (H) ALT 10 - 54 U/L 126 (H) Protein, Total 6.3 - 8.0 g/dL 7.3 TONIO Interpretation The HLA-DQ genotype of the patient is supportive of an increased risk of celiac disease. HLA-DQA1 Genotype HLA-DQA1*: 05, 01 HLA-DQB1 Genotype HLA-DQB1*: 02:01, 06 Celiac Risk Haplotype Positive Celiac Category Category 3 Transglutaminase IgG Abs <6 U/mL Transglutaminase IgG Abs Interpretation Negative Transglutaminase IgA Abs <4 U/mL Transglutaminase IgA Abs Interpretation Negative Vitamin E-alpha 6.0 - 23.0 mg/L 9.8 Vitamin E-gamma 0.3 - 3.2 mg/L 0.8 TSH 0.510 - 4.300 mIU/L Vitamin D 25 Hydroxy 31.0 - 80.0 ng/mL 33.5 Vitamin A 0.30 - 1.20 mg/L 0.32 Legend: (H) High Record Review: [facility] / Outside records reviewed. PAST MEDICAL HISTORY Diagnosis Date Allergy PSC (primary sclerosing cholangitis) Ulcerative colitis (HCC) PAST SURGICAL HISTORY Procedure Laterality Date ADENOIDECTOMY HX COLONOSCOPY SCREENING 02/02/2024 LIVER BIOPSY 12/05/2023 Allergies: ALLERGIES Allergen Reactions Omnicef [Cefdinir] Unknown Medications: Cetirizine (ZYRTEC) 10 mg cap fluticasone (FLONASE) 50 mcg/actuation nasal spray cetirizine (ZYRTEC) 1 mg/mL syrup Take by mouth. FAMILY HISTORY Problem Relation Age of Onset Colon Cancer No Family History Employer And Job Title: None on file Years Of Education Completed: Not specified Marital Status: Single Social History Tobacco Use Smoking status: Never Smokeless tobacco: Never Vaping Use Vaping Use: Never used Substance Use Topics Alcohol use: Never Drug use: Never Review of Systems: Review of Systems Constitutional: Positive for fatigue. Gastrointestinal: Positive for abdominal pain and blood in stool. All other systems reviewed and are negative. Are you taking any blood thinners? No Physical Examination: BP 112/70 Pulse (!) 58 Ht 185.4 cm (6' 1 ) Wt 79.8 kg (176 lb) BMI 23.22 kg/m Physical Exam Constitutional: General: He is not in acute distress. Appearance: Normal appearance. He is normal weight. He is not ill-appearing, toxic-appearing or diaphoretic. HENT: Head: Normocephalic and atraumatic. Nose: Nose normal. Eyes: General: No scleral icterus. Right eye: No discharge. Left eye: No discharge. Extraocular Movements: Extraocular movements intact. Conjunctiva/sclera: Conjunctivae normal. Pupils: Pupils are equal, round, and reactive to light. Cardiovascular: Rate and Rhythm: Normal rate and regular rhythm. Pulses: Normal pulses. Heart sounds: Normal heart sounds. No murmur heard. No friction rub. No gallop. Pulmonary: Effort: No respiratory distress. Breath sounds: Normal breath sounds. No stridor. No wheezing, rhonchi or rales. Chest: Chest wall: No tenderness. Abdominal: General: Abdomen is flat. Bowel sounds are normal. There is no distension. Palpations: Abdomen is soft. There is no mass. Tenderness: There is no abdominal tenderness. There is no right CVA tenderness, left CVA tenderness, guarding or rebound. Hernia: No hernia is present. Musculoskeletal: General: Normal range of motion. Cervical back: Normal range of motion and neck supple. Skin: General: Skin is warm and dry. Neurological: General: No focal deficit present. Mental Status: He is alert and oriented to person, place, and time. Psychiatric: Mood and Affect: Mood normal. Behavior: Behavior normal. Assessment/Plan (K51.011) 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) (primary encounter diagnosis) 1. 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) - COMPLETE BLOOD COUNT; Future - BASIC METABOLIC PANEL; Future - SEDIMENTATION RATE, WESTERGREN; Future - C-REACTIVE PROTEIN; Future - VITAMIN B12; Future - CALPROTECTIN,FECAL - Mesalamine (LIALDA) 1.2 gram EC tablet; Take 4 tablets by mouth once daily. Take with food. Do not cut tablet. Dispense: 360 tablet; Refill: 2 - Discussed UC dx in detail and provided printed edu handout - Discussed Mediterranean diet and provided edu handout. Advised to contact me if interested in establishing with dietitian - Will start on Lialda daily, is to contact me if any issues with cost/coverage - Check additional blood work, baseline fecal calprotectin - Informed of importance of yearly eye/skin exams. Mom is established with [facility] where she will schedule pt appt - Genetic risk positive for Celiac, negative for active disease on labs. Pt limits gluten at home but not adhering to complete GF diet - Will be needing repeat colonoscopy in 6 mos to assess for healing, consider sooner repeat if lack of clinical improvement - Recently established with counselor to help with stress management - Following with Hepatology at [facility] for PSC Follow up in office 3 months/PRN. I spent a total of 30 minutes on the date of the service which included preparing to see the patient, [id number] patient care, completing clinical documentation, obtaining and/or reviewing separately obtained history, performing a medically appropriate examination, counseling and educating the patient/family/caregiver, ordering medications, tests, or procedures, communicating with other HCPs (not separately reported), independently interpreting results (not separately reported), communicating results to the patient/family/caregiver, and care coordination (not separately reported). Codi Dunn PA-C February 06, 2024 1:53 PM documented in this encounter [facility] 02-02-2024 Note Formatting of this n ote might be different from the original. The patient received a copy of Colonoscopy discharge instructions that contain information for how to contact the physician who performed the procedure and when to seek medical care. [facility] 02-02-2024 Miscellaneous Notes The patient received a copy of Colonoscopy discharge instructions that contain information for how to contact the physician who performed the procedure and when to seek medical care. documented in this encounter [facility] 02-02-2024 Nurse Note Pt. arrived to phase 2 resting/ awake on left side. Denies pain/ nausea. SR up x 2, call light in reach. Danielle Zaldivar RN [facility] 02-02-2024 Nurse Note Pt. arrived to phase 2 resting/ awake on left side. Denies pain/ nausea. SR up x 2, call light in reach. Danielle Zaldivar RN documented in this encounter [facility] 02-02-2024 History and physical note HPI: Ayaz Lopez is a 22 year old gentleman with newly diagnosed PSC here for follow-up Initially saw him for further eval of abnormal liver tests Had MRCP which noted mild intrahepatic biliary dilation, liver biopsy with chronic biliary obstruction and periportal fibrosis consistent with PSC Doing well otherwise Clinic visit: In [place] for a mission trip, hadn't been feeling well which prompted him to seek evaluation Main symptom was fatigue and intermittent headache No sore throat, fevers, constitutional symptoms, weight loss In Sep , liver tests noted to be abnormal- ALT 141, AST 70, alk phos 185, tbili 0.9 Then had follow-up testing- RUQ was normal Smooth muscle Ab + (59), JULES >1:1280, GGT elevated Patient was told he had autoimmune hepatitis and needed to be evaluated further by a liver specialist Hepatitis panel unremarkable Patient does recall about 2 years ago having a full body rash- had celiac testing which was negative (though IgA low and only had TTG IgA) Weights 184.5 lbs- no weight loss or other GI symptoms No family history of autoimmune diseases Denies any EtOH, ilicit substances Review of Systems: See note Past Medical History: PAST MEDICAL HISTORY PAST MEDICAL HISTORY Diagnosis Date Allergy Past Surgical History: PAST SURGICAL HISTORY PAST SURGICAL HISTORY Procedure Laterality Date ADENOIDECTOMY HX Family History: FAMILY HISTORY No family history on file. Social History: Denies EtOH, ilicit substances I have confirmed and edited as necessary, the PFSH and ROS obtained by others. Outpatient medications: Current Outpatient Medications on File Prior to Visit Medication Sig cetirizine (ZYRTEC) 1 mg/mL syrup Take by mouth. fluticasone (FLONASE) 50 mcg/actuation nasal spray montelukast (SINGULAIR) 10 mg tablet Melatonin 5 mg cap Take 5 mg by mouth. triamcinolone acetonide (NASACORT AQ) 55 mcg nasal inhaler Use in the nose. Ibuprofen 200 mg cap Take by mouth. No current facility-administered medications on file prior to visit. Vitals: There were no vitals taken for this visit. Physical Exam: General: pleasant, conversant, in no apparent distress Eye: conjunctiva anicteric, Lungs: normal respiratory effort Skin: no jaundice/rashes/lesions Neuro: Aox3 Psych: appropriate affect Laboratory: A. Liver, biopsy: -Liver with features of chronic biliary obstruction and periportal fibrosis, see comment. Diagnosis Comment The liver parenchymal architecture is preserved. The portal areas contain patchy mild lymphocytic inflammation and patchy mild bile ductular reaction. Scattered citizen [place] interlobular bile ducts show mild nuclear disarray. Concentric periductal fibrosis is observed surrounding multiple interlobular bile ducts. [place] interlobular bile ducts are identified in approximately 22 of 24 intact portal tracts. No duct centric inflammation, florid duct lesion, plasma cell rich inflammation, or significant interface activity is appreciated. Within the lobular parenchyma, patchy minimal mixed lymphocytic and histiocytic inflammation is seen. No significant hepatocellular apoptosis, necrosis, cholestasis, or steatosis is appreciated. A trichrome stain highlights periportal fibrosis and no bridging fibrosis. A PAS-D stain is negative for intrahepatocellular PAS positive globules. An iron stain is negative. A CK7 immunostain shows positive staining in bile ducts as well as patchy periportal hepatocytes. A copper stain shows positive staining in periportal hepatocytes. Overall, the liver shows features of chronic biliary obstruction. The patient's recent MRCP which demonstrated mild intrahepatic bile duct dilation and raised the possibility of early primary sclerosing cholangitis (PSC) is noted. The biopsy findings are compatible with PSC in the appropriate clinical and radiographic context. Correlation to exclude other causes of sclerosing cholangitis, mechanical biliary obstruction, and drug induced liver injury is required. Morphologic findings to suggest ongoing autoimmune hepatitis are not appreciated. Endoscopy: Imaging: MRI/MRCP Mild intrahepatic biliary duct dilation with queried focal areas of central narrowing near the confluence. Subtle peribiliary enhancement suggestive of mild inflammation. No overt beaded appearance, although findings could relate to early primary sclerosing cholangitis in the appropriate clinical setting. Normal liver morphology. Assessment and Plan: In conclusion, Ayaz Lopez is a 22 year old gentleman with newly diagnosed PSC here for follow-up Needs colonoscopy to screen for UC Bi-annual MRCP with CA 19-9 Will send IgG4 Checking fat soluble vitamins Celiac serology negative but was gluten-free; will check HLA and then advise EGD if high risk HAV immune HBV non-immune, recommended Heplisav RTC 6 months I spent a total of 45 minutes on the date of the service which included preparing to see the patient, [id number] patient care, completing clinical documentation, obtaining and/or reviewing separately obtained history, performing a medically appropriate examination, counseling and educating the patient/family/caregiver, ordering medications, tests, or procedures, and communicating with other HCPs (not separately reported). Siva Rome MD UPDATED HISTORY AND PHYSICAL EXAMINATION SERVICE DATE: 02/02/2024 SERVICE TIME: 8:42 AM PHYSICAL EXAM MUST BE COMPLETED ON ADMISSION The History and Physical (completed in the past 30 days) has been reviewed and the patient has been examined. The contents accurately reflect the patient's condition with the following additions or revisions since the H&P was completed. Examination indicates no changes. This H&P can be found in the attached. SIGNATURE: Levi Miles III, MD PATIENT NAME: Ayaz Lopez DATE: February 02, 2024 TIME: 8:42 AM [facility] Work Phone: 02-02-2024 History and physical note HPI: Ayaz Lopez is a 22 year old gentleman with newly diagnosed PSC here for follow-up Initially saw him for further eval of abnormal liver tests Had MRCP which noted mild intrahepatic biliary dilation, liver biopsy with chronic biliary obstruction and periportal fibrosis consistent with PSC Doing well otherwise Clinic visit: In [place] for a mission trip, hadn't been feeling well which prompted him to seek evaluation Main symptom was fatigue and intermittent headache No sore throat, fevers, constitutional symptoms, weight loss In Dec , liver tests noted to be abnormal- ALT 141, AST 70, alk phos 185, tbili 0.9 Then had follow-up testing- RUQ was normal Smooth muscle Ab + (59), JULES >1:1280, GGT elevated Patient was told he had autoimmune hepatitis and needed to be evaluated further by a liver specialist Hepatitis panel unremarkable Patient does recall about 2 years ago having a full body rash- had celiac testing which was negative (though IgA low and only had TTG IgA) Weights 184.5 lbs- no weight loss or other GI symptoms No family history of autoimmune diseases Denies any EtOH, ilicit substances Review of Systems: See note Past Medical History: PAST MEDICAL HISTORY PAST MEDICAL HISTORY Diagnosis Date Allergy Past Surgical History: PAST SURGICAL HISTORY PAST SURGICAL HISTORY Procedure Laterality Date ADENOIDECTOMY HX Family History: FAMILY HISTORY No family history on file. Social History: Denies EtOH, ilicit substances I have confirmed and edited as necessary, the PFSH and ROS obtained by others. Outpatient medications: Current Outpatient Medications on File Prior to Visit Medication Sig cetirizine (ZYRTEC) 1 mg/mL syrup Take by mouth. fluticasone (FLONASE) 50 mcg/actuation nasal spray montelukast (SINGULAIR) 10 mg tablet Melatonin 5 mg cap Take 5 mg by mouth. triamcinolone acetonide (NASACORT AQ) 55 mcg nasal inhaler Use in the nose. Ibuprofen 200 mg cap Take by mouth. No current facility-administered medications on file prior to visit. Vitals: There were no vitals taken for this visit. Physical Exam: General: pleasant, conversant, in no apparent distress Eye: conjunctiva anicteric, Lungs: normal respiratory effort Skin: no jaundice/rashes/lesions Neuro: Aox3 Psych: appropriate affect Laboratory: A. Liver, biopsy: -Liver with features of chronic biliary obstruction and periportal fibrosis, see comment. Diagnosis Comment The liver parenchymal architecture is preserved. The portal areas contain patchy mild lymphocytic inflammation and patchy mild bile ductular reaction. Scattered citizen [place] interlobular bile ducts show mild nuclear disarray. Concentric periductal fibrosis is observed surrounding multiple interlobular bile ducts. [place] interlobular bile ducts are identified in approximately 22 of 24 intact portal tracts. No duct centric inflammation, florid duct lesion, plasma cell rich inflammation, or significant interface activity is appreciated. Within the lobular parenchyma, patchy minimal mixed lymphocytic and histiocytic inflammation is seen. No significant hepatocellular apoptosis, necrosis, cholestasis, or steatosis is appreciated. A trichrome stain highlights periportal fibrosis and no bridging fibrosis. A PAS-D stain is negative for intrahepatocellular PAS positive globules. An iron stain is negative. A CK7 immunostain shows positive staining in bile ducts as well as patchy periportal hepatocytes. A copper stain shows positive staining in periportal hepatocytes. Overall, the liver shows features of chronic biliary obstruction. The patient's recent MRCP which demonstrated mild intrahepatic bile duct dilation and raised the possibility of early primary sclerosing cholangitis (PSC) is noted. The biopsy findings are compatible with PSC in the appropriate clinical and radiographic context. Correlation to exclude other causes of sclerosing cholangitis, mechanical biliary obstruction, and drug induced liver injury is required. Morphologic findings to suggest ongoing autoimmune hepatitis are not appreciated. Endoscopy: Imaging: MRI/MRCP Mild intrahepatic biliary duct dilation with queried focal areas of central narrowing near the confluence. Subtle peribiliary enhancement suggestive of mild inflammation. No overt beaded appearance, although findings could relate to early primary sclerosing cholangitis in the appropriate clinical setting. Normal liver morphology. Assessment and Plan: In conclusion, Ayaz Lopez is a 22 year old gentleman with newly diagnosed PSC here for follow-up Needs colonoscopy to screen for UC Bi-annual MRCP with CA 19-9 Will send IgG4 Checking fat soluble vitamins Celiac serology negative but was gluten-free; will check HLA and then advise EGD if high risk HAV immune HBV non-immune, recommended Heplisav RTC 6 months I spent a total of 45 minutes on the date of the service which included preparing to see the patient, [id number] patient care, completing clinical documentation, obtaining and/or reviewing separately obtained history, performing a medically appropriate examination, counseling and educating the patient/family/caregiver, ordering medications, tests, or procedures, and communicating with other HCPs (not separately reported). Siva Rome MD UPDATED HISTORY AND PHYSICAL EXAMINATION SERVICE DATE: 02/02/2024 SERVICE TIME: 8:42 AM PHYSICAL EXAM MUST BE COMPLETED ON ADMISSION The History and Physical (completed in the past 30 days) has been reviewed and the patient has been examined. The contents accurately reflect the patient's condition with the following additions or revisions since the H&P was completed. Examination indicates no changes. This H&P can be found in the attached. SIGNATURE: Levi Miles III, MD PATIENT NAME: Ayaz Lopez DATE: February 02, 2024 TIME: 8:42 AM documented in this encounter [facility] 01-25-2024 Instructions Siva Roem MD - 01/25/2024 11:06 AM EDT Images from the original note were not included. Bowel Preparation Instructions for: Golytely, Nulytely, Trilyte or Colyte (polyethylene glycol 3350 and electrolytes) IF YOU DO NOT FOLLOW THESE DIRECTIONS, YOUR COLONOSCOPY WILL BE CANCELLED. Cruz Instructions: Your bowel must be empty so that your doctor can clearly view your colon. Follow all of the instructions in this handout EXACTLY as they are written. Do NOT eat any solid food the ENTIRE day before your colonoscopy. Drink only clear liquids. Buy your bowel preparation at least 5 days before your colonoscopy. TRANSPORTATION on the Day of Your Exam A responsible person MUST be present with you at Check In prior to your colonoscopy and REMAIN in the endoscopy area until you are discharged. You are NOT ALLOWED to drive, take a taxi or bus, or leave the Endoscopy Center ALONE. If you do not have a responsible milk pickup truck driver (family member or friend) with you to take you home, your exam cannot be done with sedation and will be cancelled. Please bring a list of all of your current medications, including any Over-the Counter medications with you. Medications If you take insulin, diabetic medications or blood thinners such as Coumadin (warfarin), Plavix (clopidogrel), Ticlid (ticlopidine hydrochloride), Agrylin (anagrelide), Xarelto (Rivaroxaban), Pradaxa (Dabigatran), Eliquis (Apixaban), and Effient (Prasugrel). You MUST call the doctors who orders those medicines for instructions on altering the dosage before your colonoscopy. All other medications should be taken the day of the exam with a sip of water including ASPIRIN. Five (5) Days Before Your Colonoscopy Do NOT take medicines that stop diarrhea - such as Imodium, Kaopectate, or Pepto Bismol. Do NOT take fiber supplements - such as Metamucil, Citrucel, or Perdiem. Do NOT take products that contain iron - such as multi-vitamins (the label lists what is in the products). Do NOT take Vitamin E. Buy the prescription bowel preparation solution at your local pharmacy or [facility]. 09/2019 Bowel Preparation Instructions for: Golytely, Nulytely, Trilyte or Colyte (polyethylene glycol 3350 and electrolytes) Three (3) Days Before Your Colonoscopy Do NOT eat high-fiber foods - such as popcorn, beans, seeds (flax, sunflower, quinoa), multigrain bread, nuts, salad/vegetables, or fresh and dried fruit. One (1) Day Before Your Colonoscopy Only drink clear liquids the ENTIRE DAY before your colonoscopy. Do NOT eat any solid foods. Drink at least 8 ounces of clear liquids every hour after waking up. The clear liquids you can drink include: Clear Liquid (NO RED LIQUIDS) DO NOT DRINK Gatorade, Pedialyte or Powerade Clear broth or bouillon Coffee or tea (no milk or non-dairy creamer) Carbonated and non-carbonated soft drinks Osmar-Aid or other fruit flavored drinks Strained fruit juices (no pulp) Jell-O, popsicles, hard candy Water Alcohol Milk or non-dairy creamers Noodles or vegetables in soup Juice with pulp Liquid you cannot see through Do not use tobacco/vaping products The bowel preparation solution will be consumed in two parts. Mix the solution the evening before your colonoscopy and refrigerate before drinking. You may add the flavor pack that came with the bowel preparation. Do NOT add ice, sugar or any other flavorings to the solution. Part 1 At 6:00 PM - Evening before your colonoscopy Drink an 8-oz glass of bowel preparation every 10 minutes for a total of 8 glasses. You may continue to drink clear liquids until midnight. Part 2 On the day of your colonoscopy you may drink clear liquids up to (three) 3 hours before your procedure. 4 1/2 hours before your colonoscopy Drink an 8-oz glass of bowel preparation every 10 minutes for a total of 8 glasses. Fifteen (15) minutes later, drink an 8-oz glass of clear liquids every 15 minutes for a total of 2 glasses. You may continue to drink clear liquids up to (three) 3 hours before your exam. 2 09/2019 Bowel Preparation Instructions for: Miralax-Gatorade Preparations IF YOU DO NOT FOLLOW THESE DIRECTIONS, YOUR COLONOSCOPY WILL BE CANCELLED. Cruz Instructions: Your bowel must be empty so that your doctor can clearly view your colon. Follow all of the instructions in this handout EXACTLY as they are written. Do NOT eat any solid food the ENTIRE day before your colonoscopy. Buy your bowel preparation at least 5 days before your colonoscopy. Four (4) Dulcolax laxative tablets containing 5mg of bisacodyl each (NOT Dulcolax stool softener) One (1) 8.3oz. bottle Miralax (238 grams) or generic equivalent 2 x 32oz. Bottles of Gatorade (NOT RED) Diabetic Patients: Use G2 (Gatorade 2) TRANSPORTATION on the Day of Your Exam A responsible adult MUST be present with you at Check In prior to your colonoscopy and REMAIN in the endoscopy area until you are discharged. You are NOT ALLOWED to drive, take a taxi or bus, or leave the Endoscopy Center ALONE. If you do not have a responsible milk pickup truck driver (family member or friend) with you to take you home, your exam cannot be done with sedation and will be cancelled. Please bring a list of all of your current medications, including any [id number] medications with you. Medications If you take insulin, diabetic medications or blood thinners such as Coumadin (warfarin), Plavix (clopidogrel), Ticlid (ticlopidine hydrochloride), Agrylin (anagrelide), Xarelto (Rivaroxaban), Pradaxa (Dabigatran), Eliquis (Apixaban), and Effient (Prasugrel). You MUST call the doctors who orders those medicines for instructions on altering the dosage before your colonoscopy. All other medications should be taken the day of the exam with a sip of water including ASPIRIN. Five (5) Days Before Your Colonoscopy Do NOT take medicines that stop diarrhea - such as Imodium, Kaopectate, or Pepto Bismol. Do NOT take fiber supplements - such as Metamucil, Citrucel, or Perdiem. Do NOT take products that contain iron - such as multi-vitamins (the label lists what is in the products). Three (3) Days Before Your Colonoscopy Do NOT eat high-fiber foods - such as popcorn, beans, seeds (flax, sunflower, quinoa), multigrain bread, nuts, salad/vegetables, or fresh and dried fruit. 1 Bowel Preparation Instructions for: Miralax-Gatorade Preparations One (1) Day Before Your Colonoscopy Only drink clear liquids the ENTIRE DAY before your colonoscopy. Do NOT eat any solid foods. Drink at least 8 ounces of clear liquids every hour after waking up. The clear liquids you can drink include: Clear Liquid (NO RED LIQUIDS) DO NOT DRINK Gatorade, Pedialyte or Powerade Clear broth or bouillon Coffee or tea (no milk or non-dairy creamer) Carbonated and non-carbonated soft drinks Osmar-Aid or other fruit flavored drinks Strained fruit juices (no pulp) Jell-O, popsicles, hard candy Water Alcohol Milk or non-dairy creamers Noodles or vegetables in soup Juice with pulp Liquid you cannot see through Do not use tobacco/vaping products Mix 1/2 of Miralax bottle (119 grams) in each 32 ounces of Gatorade bottle until dissolved. Keep cool in the refrigerator. DO NOT ADD ICE. The bowel preparation solution will be consumed in two parts. Part 1 5:00 PM - Evening before your colonoscopy Take 4 Dulcolax tablets. 6 PM - Evening before your colonoscopy Drink 32 oz. of the mixed solution. Drink an 8 oz. glass of bowel preparation every 15 minutes for a total of 4 glasses. Fifteen (15) minutes later, drink an 8 oz. glass of of clear liquids every 15 minutes for a total of 2 glasses. You may continue to drink clear liquids till midnight. Part 2 On the day of your colonoscopy you may drink clear liquids up to (three) 3 hours prior to procedure. 4 1/2 hours before your colonoscopy Take another 32 oz. bottle of mixed solution. Drink an 8 oz. glass of bowel prep every 15 minutes for a total of 4 glasses. Fifteen (15) minutes later, drink an 8 oz. glass of clear liquids every 15 minutes for a total of 2 glasses. You may continue to drink clear liquids up to (three) 3 hours before your exam. 2 09/2019 documented in this encounter [facility] 01-06-2024 Note HNO ID: [id number] Author: SIVA ROME MD Service: ? Author Type: Physician Type: Progress Notes Filed: 01/06/2024 10:23 Note Text: Hepatology Clinic follow-up (telemedicine) Date of visit: 11/18/23 CC: PSC HPI: Ayaz Lopez is a 22 year old gentleman with newly diagnosed PSC here for follow-up Initially saw him for further eval of abnormal liver tests Had MRCP which noted mild intrahepatic biliary dilation, liver biopsy with chronic biliary obstruction and periportal fibrosis consistent with PSC Doing well otherwise Clinic visit: In [place] for a mission trip, hadn't been feeling well which prompted him to seek evaluation Main symptom was fatigue and intermittent headache No sore throat, fevers, constitutional symptoms, weight loss In Dec , liver tests noted to be abnormal- ALT 141, AST 70, alk phos 185, tbili 0.9 Then had follow-up testing- RUQ was normal Smooth muscle Ab + (59), JULES >1:1280, GGT elevated Patient was told he had autoimmune hepatitis and needed to be evaluated further by a liver specialist Hepatitis panel unremarkable Patient does recall about 2 years ago having a full body rash- had celiac testing which was negative (though IgA low and only had TTG IgA) Weights 184.5 lbs- no weight loss or other GI symptoms No family history of autoimmune diseases Denies any EtOH, ilicit substances Review of Systems: See note Past Medical History: PAST MEDICAL HISTORY Diagnosis Date Allergy Past Surgical History: PAST SURGICAL HISTORY Procedure Laterality Date ADENOIDECTOMY HX Family History: No family history on file. Social History: Denies EtOH, ilicit substances I have confirmed and edited as necessary, the PFSH and ROS obtained by others. Outpatient medications: Current Outpatient Medications on File Prior to Visit Medication Sig cetirizine (ZYRTEC) 1 mg/mL syrup Take by mouth. fluticasone (FLONASE) 50 mcg/actuation nasal spray montelukast (SINGULAIR) 10 mg tablet Melatonin 5 mg cap Take 5 mg by mouth. triamcinolone acetonide (NASACORT AQ) 55 mcg nasal inhaler Use in the nose. Ibuprofen 200 mg cap Take by mouth. No current facility-administered medications on file prior to visit. Vitals: There were no vitals taken for this visit. Physical Exam: General: pleasant, conversant, in no apparent distress Eye: conjunctiva anicteric, Lungs: normal respiratory effort Skin: no jaundice/rashes/lesions Neuro: Aox3 Psych: appropriate affect Laboratory: A. Liver, biopsy: -Liver with features of chronic biliary obstruction and periportal fibrosis, see comment. Diagnosis Comment The liver parenchymal architecture is preserved. The portal areas contain patchy mild lymphocytic inflammation and patchy mild bile ductular reaction. Scattered [place] interlobular bile ducts show mild nuclear disarray. Concentric periductal fibrosis is observed surrounding multiple interlobular bile ducts. [place] interlobular bile ducts are identified in approximately 22 of 24 intact portal tracts. No duct centric inflammation, florid duct lesion, plasma cell rich inflammation, or significant interface activity is appreciated. Within the lobular parenchyma, patchy minimal mixed lymphocytic and histiocytic inflammation is seen. No significant hepatocellular apoptosis, necrosis, cholestasis, or steatosis is appreciated. A trichrome stain highlights periportal fibrosis and no bridging fibrosis. A PAS-D stain is negative for intrahepatocellular PAS positive globules. An iron stain is negative. A CK7 immunostain shows positive staining in bile ducts as well as patchy periportal hepatocytes. A copper stain shows positive staining in periportal hepatocytes. Overall, the liver shows features of chronic biliary obstruction. The patient's recent MRCP which demonstrated mild intrahepatic bile duct dilation and raised the possibility of early primary sclerosing cholangitis (PSC) is noted. The biopsy findings are compatible with PSC in the appropriate clinical and radiographic context. Correlation to exclude other causes of sclerosing cholangitis, mechanical biliary obstruction, and drug induced liver injury is required. Morphologic findings to suggest ongoing autoimmune hepatitis are not appreciated. Endoscopy: Imaging: MRI/MRCP Mild intrahepatic biliary duct dilation with queried focal areas of central narrowing near the confluence. Subtle peribiliary enhancement suggestive of mild inflammation. No overt beaded appearance, although findings could relate to early primary sclerosing cholangitis in the appropriate clinical setting. Normal liver morphology. Assessment and Plan: In conclusion, Ayaz Lopez is a 22 year old gentleman with newly diagnosed PSC here for follow-up Needs colonoscopy to screen for UC Bi-annual MRCP with CA 19-9 Will send IgG4 Ch (more content not included)... [facility] 12-16-2023 Miscellaneous Notes Called patient and updated him on Dr Corley message. Verbalized understanding. 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 Let me know if he is ok with that, can do a virtual visit in the next few weeks documented in this encounter [facility] 12-05-2023 History of Present illness Narrative Radiology Service Progress Note DATE OF SERVICE: December 05, 2023 TIME: 8:48 AM PATIENT WEIGHT: 160 LBS PATIENT IDENTITY VERIFICATION COMPLETED USING TWO (2) STANDARD IDENTIFIERS: Name and Date of confirmed by patient verbally. FALL SCREENING: Has the patient had 2 falls in the last year or 1 fall with injury or currently using an Ambulatory Assistive Device (Walker, Cane, Wheelchair, Crutches, etc.)? No PATIENT GENDER DATA: Male ALLERGIES: Reviewed and unchanged CONTRAST ALLERGY: No EXAM: MRI - CONTRAST TYPE: GROUP II IV SITE: Ambulatory: A peripheral IV was started in the Left antecubital site with a Angio cath: 22 gauge. IV SITE APPEARANCE: Clean,Dry and Intact SIGNATURE: Jake Magallon RN PATIENT NAME: Ayaz Lopez DATE: December 05, 2023 TIME: 8:48 AM Radiology Service Progress Note PATIENT NAME: Ayaz Lopez DATE OF SERVICE: December 05, 2023 TIME: 10:02 AM PATIENT IDENTITY VERIFICATION COMPLETED USING TWO (2) IDENTIFIERS: Name and Date of confirmed by patient verbally and Name and Date of confirmed by identification band. FALL SCREENING: Has the patient had 2 falls in the last year or 1 fall with injury or currently using an Ambulatory Assistive Device (Walker, Cane, Wheelchair, Crutches, etc.)? No PATIENT GENDER DATA: Male PATIENT RELEVANT IMPLANT DATA REVIEWED: Yes PATIENT PRESENTS WITH AN IMPLANTABLE OR ATTACHED DRIVER: No RADIOLOGY DEPARTMENT: MR; Exam(s) Completed: Body: Pancreas/Biliary PERIPHERAL IV DATA: Site assessment: Clean,Dry and Intact, Site disposition Discontinued SIGNED BY: SHANTAL Hunter December 05, 2023 10:02 AM documented in this encounter [facility] 12-05-2023 Note HNO ID: [id number] Author: HARLEY REY MRI Tech Service: Radiology Author Type: Laborer [employer] Type: Progress Notes Filed: 12/05/2023 10:02 Note Text: Radiology Service Progress Note PATIENT NAME: Ayaz Lopez DATE OF SERVICE: December 05, 2023 TIME: 10:02 AM PATIENT IDENTITY VERIFICATION COMPLETED USING TWO (2) IDENTIFIERS: Name and Date of confirmed by patient verbally and Name and Date of confirmed by identification band. FALL SCREENING: Has the patient had 2 falls in the last year or 1 fall with injury or currently using an Ambulatory Assistive Device (Walker, Cane, Wheelchair, Crutches, etc.)? No PATIENT GENDER DATA: Male PATIENT RELEVANT IMPLANT DATA REVIEWED: Yes PATIENT PRESENTS WITH AN IMPLANTABLE OR ATTACHED DRIVER: No RADIOLOGY DEPARTMENT: MR; Exam(s) Completed: Body: Pancreas/Biliary PERIPHERAL IV DATA: Site assessment: Clean,Dry and Intact, Site disposition Discontinued SIGNED BY: SHANTAL Hunter December 05, 2023 10:02 AM [facility] 12-05-2023 Note HNO ID: [id number] Author: JAKE MAGALLON RN Service: Nursing Author Type: Registered Nurse Type: Progress Notes Filed: 12/05/2023 08:49 Note Text: Radiology Service Progress Note DATE OF SERVICE: December 05, 2023 TIME: 8:48 AM PATIENT WEIGHT: 160 LBS PATIENT IDENTITY VERIFICATION COMPLETED USING TWO (2) STANDARD IDENTIFIERS: Name and Date of confirmed by patient verbally. FALL SCREENING: Has the patient had 2 falls in the last year or 1 fall with injury or currently using an Ambulatory Assistive Device (Walker, Cane, Wheelchair, Crutches, etc.)? No PATIENT GENDER DATA: Male ALLERGIES: Reviewed and unchanged CONTRAST ALLERGY: No EXAM: MRI - CONTRAST TYPE: GROUP II IV SITE: Ambulatory: A peripheral IV was started in the Left antecubital site with a Angio cath: 22 gauge. IV SITE APPEARANCE: Clean,Dry and Intact SIGNATURE: Jake Magallon RN PATIENT NAME: Ayaz Lopez DATE: December 05, 2023 TIME: 8:48 AM [facility] 11-22-2023 Miscellaneous Notes Spoke to pt and scheduled biopsy for 12/08/23 per pt. Called pt to schedule and a message was left. 1st attempt BX. COORDINATOR INFORMATION LAB RESULTS: No results found for: INR No results found for: APTT Platelet Count (X10(3)) Date Value 12/15/2016 244 Current Outpatient Medications Medication Sig iv contrast (will be provided with radiology test) MRI PANC/EPIFANIO Inject, intravenously, once for 1 dose. No IV access, insert saline lock prior to the beginning of sedation, infusion, injection of imaging exam. Discontinue saline lock post exam. If Pt. has a central line or IVAD, may access for administration according to line specific nursing protocol. Once exam is complete flush line and de-access according to line specific nursing protocol in the MR contrast administration guidelines link. cetirizine (ZYRTEC) 1 mg/mL syrup Take by mouth. fluticasone (FLONASE) 50 mcg/actuation nasal spray montelukast (SINGULAIR) 10 mg tablet Melatonin 5 mg cap Take 5 mg by mouth. triamcinolone acetonide (NASACORT AQ) 55 mcg nasal inhaler Use in the nose. Ibuprofen 200 mg cap Take by mouth. No current facility-administered medications for this visit. ALLERGIES Allergen Reactions Omnicef [Cefdinir] Unknown FILMS SENT TO WORKSTATION: GUIDELINES FOR HOLDING ANTI-PLATELET AND ANTI- COAGULATION THERAPY: none on file NURSE SIGNATURE: Shanita Spears LPN DATE: November 18, 2023 TIME: 12:21 PM STAFF-INITIATED RADIOLOGY BIOPSY / ASPIRATION / DRAIN REQUEST FORM Date: November 18, 2023 Time: 12:15 PM PATIENT CONTACT INFORMATION: Best way to reach patient [phone] SCHEDULING: WERO (Specific requests must be greater than 10 business days from the date of request) RADIOLOGY SERVICE GROUP (Abdominal / Thoracic / MSK / Neuro): Abdominal- Biopsy Site: Liver - Random SPECIFICS OF THE REQUEST (Please be as detailed as possible): BIOPSY of an ORGAN - LIVER: Random liver biopsy (evaluate for diffuse disease) SPECIAL REQUESTS: TISSUE SAMPLE, LABWORK: Routine Evaluation MEDICAL DIAGNOSIS: Abnormal liver function results (i.e. Known primary cancer or suspected diagnosis) IMAGING STUDY AND DATE THAT IS THE BASIS OF THE REQUEST: (Note: Requests for random organ biopsies, specifically liver and kidney random biopsies do not need imaging.) IMAGING: (If the imaging was obtained outside the [facility] system, PLEASE upload for review prior to approval.) Note to all persons requesting biopsies: All biopsy requests will be scheduled as quickly as possible, based on the clinical urgency, availability of appointment times, the need to hold anti-thrombolytic therapy (aspirin and other blood thinners) and the patient s schedule, including the need for an available milk pickup truck driver. If a percutaneous biopsy or drainage is not felt to be safe or an alternative method for establishing a diagnosis is possible, this will be discussed directly with the requesting physician. documented in this encounter [facility] 11-18-2023 Note HNO ID: [id number] Author: SIVA ROME MD Service: ? Author Type: Physician Type: Progress Notes Filed: 11/18/2023 08:49 Note Text: Hepatology Clinic New Consult (telemedicine) Date of visit: 11/18/23 CC: possible AIH HPI: Ayaz Lopez is a 22 year old gentleman here for further evaluation of abnormal liver tests In [place] for a mission trip, hadn't been feeling well which prompted him to seek evaluation Main symptom was fatigue and intermittent headache No sore throat, fevers, constitutional symptoms, weight loss In Sep , liver tests noted to be abnormal- ALT 141, AST 70, alk phos 185, tbili 0.9 Then had follow-up testing- RUQ was normal Smooth muscle Ab + (59), JULES >1:1280, GGT elevated Patient was told he had autoimmune hepatitis and needed to be evaluated further by a liver specialist Hepatitis panel unremarkable Patient does recall about 2 years ago having a full body rash- had celiac testing which was negative (though IgA low and only had TTG IgA) Weights 184.5 lbs- no weight loss or other GI symptoms No family history of autoimmune diseases Denies any EtOH, ilicit substances Review of Systems: See note Past Medical History: PAST MEDICAL HISTORY Diagnosis Date Allergy Past Surgical History: PAST SURGICAL HISTORY Procedure Laterality Date ADENOIDECTOMY HX Family History: No family history on file. Social History: Denies EtOH, ilicit substances I have confirmed and edited as necessary, the PFSH and ROS obtained by others. Outpatient medications: Current Outpatient Medications on File Prior to Visit Medication Sig cetirizine (ZYRTEC) 1 mg/mL syrup Take by mouth. fluticasone (FLONASE) 50 mcg/actuation nasal spray montelukast (SINGULAIR) 10 mg tablet Melatonin 5 mg cap Take 5 mg by mouth. triamcinolone acetonide (NASACORT AQ) 55 mcg nasal inhaler Use in the nose. Ibuprofen 200 mg cap Take by mouth. No current facility-administered medications on file prior to visit. Vitals: There were no vitals taken for this visit. Physical Exam: General: pleasant, conversant, in no apparent distress Eye: conjunctiva anicteric, Lungs: normal respiratory effort Skin: no jaundice/rashes/lesions Neuro: Aox3 Psych: appropriate affect Laboratory: Endoscopy: Imaging: Assessment and Plan: In conclusion, Ayaz Lopez is a 22 year old previously healthy gentleman here for further evaluation of abnormal liver tests and positive autoimmune serologies. Overall, clinical picture is concerning for possible new onset of autoimmune related liver disease. Mild increase in alkaline phosphatase raises suspicion of possible PSC as well. Discussed plan with patient to send full serological panel, pretreatment labs, and further liver imaging. Will send MRCP as well to exclude possibility of PSC related liver disease. Will also send for liver biopsy. RTC: after liver biopsy I spent a total of 45 minutes on the date of the service which included preparing to see the patient, [id number] patient care, completing clinical documentation, obtaining and/or reviewing separately obtained history, performing a medically appropriate examination, counseling and educating the patient/family/caregiver, ordering medications, tests, or procedures, and communicating with other HCPs (not separately reported). Siva Rome MD Associate Staff, Department of Gastroenterology and Hepatology [facility] [place] -- I have communicated my name and active licensure. The patient's identity and physical location were verified at the time of this visit. Either the patient or their legal benefits representative has been informed of the risks and benefits of -- and alternatives to -- treatment through a remote evaluation and consents to proceed with the evaluation remotely. [facility] 11-18-2023 History of Present illness Narrative Hepatology Clinic New Consult (telemedicine) Date of visit: 11/18/23 CC: possible AIH HPI: Ayaz Lopez is a 22 year old gentleman here for further evaluation of abnormal liver tests In [place] for a mission trip, hadn't been feeling well which prompted him to seek evaluation Main symptom was fatigue and intermittent headache No sore throat, fevers, constitutional symptoms, weight loss In Sep , liver tests noted to be abnormal- ALT 141, AST 70, alk phos 185, tbili 0.9 Then had follow-up testing- RUQ was normal Smooth muscle Ab + (59), JULES >1:1280, GGT elevated Patient was told he had autoimmune hepatitis and needed to be evaluated further by a liver specialist Hepatitis panel unremarkable Patient does recall about 2 years ago having a full body rash- had celiac testing which was negative (though IgA low and only had TTG IgA) Weights 184.5 lbs- no weight loss or other GI symptoms No family history of autoimmune diseases Denies any EtOH, ilicit substances Review of Systems: See note Past Medical History: PAST MEDICAL HISTORY Diagnosis Date Allergy Past Surgical History: PAST SURGICAL HISTORY Procedure Laterality Date ADENOIDECTOMY HX Family History: No family history on file. Social History: Denies EtOH, ilicit substances I have confirmed and edited as necessary, the PFSH and ROS obtained by others. Outpatient medications: Current Outpatient Medications on File Prior to Visit Medication Sig cetirizine (ZYRTEC) 1 mg/mL syrup Take by mouth. fluticasone (FLONASE) 50 mcg/actuation nasal spray montelukast (SINGULAIR) 10 mg tablet Melatonin 5 mg cap Take 5 mg by mouth. triamcinolone acetonide (NASACORT AQ) 55 mcg nasal inhaler Use in the nose. Ibuprofen 200 mg cap Take by mouth. No current facility-administered medications on file prior to visit. Vitals: There were no vitals taken for this visit. Physical Exam: General: pleasant, conversant, in no apparent distress Eye: conjunctiva anicteric, Lungs: normal respiratory effort Skin: no jaundice/rashes/lesions Neuro: Aox3 Psych: appropriate affect Laboratory: Endoscopy: Imaging: Assessment and Plan: In conclusion, Ayaz Lopez is a 22 year old previously healthy gentleman here for further evaluation of abnormal liver tests and positive autoimmune serologies. Overall, clinical picture is concerning for possible new onset of autoimmune related liver disease. Mild increase in alkaline phosphatase raises suspicion of possible PSC as well. Discussed plan with patient to send full serological panel, pretreatment labs, and further liver imaging. Will send MRCP as well to exclude possibility of PSC related liver disease. Will also send for liver biopsy. RTC: after liver biopsy I spent a total of 45 minutes on the date of the service which included preparing to see the patient, [id number] patient care, completing clinical documentation, obtaining and/or reviewing separately obtained history, performing a medically appropriate examination, counseling and educating the patient/family/caregiver, ordering medications, tests, or procedures, and communicating with other HCPs (not separately reported). Siva Rome MD Associate Staff, Department of Gastroenterology and Hepatology [facility] [place] -- I have communicated my name and active licensure. The patient's identity and physical location were verified at the time of this visit. Either the patient or their legal benefits representative has been informed of the risks and benefits of -- and alternatives to -- treatment through a remote evaluation and consents to proceed with the evaluation remotely. documented in this encounter [facility] Evaluation note Diagnosis Abnormal results of liver function studies- Primary Nonspecific abnormal results of liver function study Abnormal liver function tests Other abnormal blood chemistry documented in this encounter [facility] note* Diagnosis PSC (primary sclerosing cholangitis)- Primary Cholangitis documented in this encounter [facility] note* Diagnosis PSC (primary sclerosing cholangitis)- Primary Cholangitis documented in this encounter [facility] note* Diagnosis Ulcerative colitis with complication, unspecified location (HCC)- Primary documented in this encounter [facility] note* Diagnosis 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)- Primary [place] ulcerative (chronic) colitis documented in this encounter [facility] note* Diagnosis Abnormal results of liver function studies Nonspecific abnormal results of liver function study documented in this encounter [facility] note* Diagnosis Abnormal results of liver function studies Nonspecific abnormal results of liver function study documented in this encounter [facility] note* Diagnosis 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)- Primary [place] ulcerative (chronic) colitis Postprandial bloating Flatulence, eructation, and gas pain Anxiety about health documented in this encounter [facility] note* Diagnosis [facility]* Diagnosis Abnormal results of liver function studies- Primary Nonspecific abnormal results of liver function study PSC (primary sclerosing cholangitis) Cholangitis documented in this encounter [facility] note* Diagnosis Pre-op examination- Primary Preoperative examination, unspecified 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) [place] ulcerative (chronic) colitis Postprandial bloating Flatulence, eructation, and gas pain Pre-op examination Preoperative examination, unspecified Ulcerative (chronic) pancolitis with rectal bleeding (HCC) PSC (primary sclerosing cholangitis) Cholangitis Normal esophagogastroduodenoscopy (EGD) Ulcerative pancolitis without complication (HCC) PSC (primary sclerosing cholangitis) Cholangitis * Assessment & Plan Note - Jere Valdez APRN.CNP - 07/25/2024 7:40 AM EDT Associated Problem(s): PSC (primary sclerosing cholangitis) Reports monitored * Assessment & Plan Note - Jere Valdez APRN.CNP - 07/25/2024 7:25 AM EDT Associated Problem(s): Postprandial bloating EGD and colonoscopy today * Assessment & Plan Note - Jere Valdez APRN.CNP - 07/25/2024 7:24 AM EDT Associated Problem(s): Ulcerative pancolitis without complication (HCC) Colonoscopy and EGD today * Assessment & Plan Note - Jere Valdez APRN.CNP - 07/25/2024 7:23 AM EDT Associated Problem(s): Pre-op examination Medical conditions which may affect the perioperative course were address in today's visit. [facility] Diagnostic Procedure Only (Routine) - Pending Review Specialty Diagnoses / Procedures Referred By Aurelia t Referred To Contact US IMAGING Diagnoses Abnormal results of liver function studies Procedures US ABD RIGHT UPPER QUADRANT US ABDOMINAL REAL TIME W/IMAGE LIMITED Siva Rome MD [address] [place] [address] Us Imaging [id number] Referral ID Status Reason Start Date Expiration Date Visits Requested Visits Authorized [id number] Pending Review Auto-Generat ed Referral 11/18/2023 12/17/2024 1 1 * MRI/CT (Routine) - Pending Review Specialty Diagnoses / Procedures Referred By Contac t Referred To Contact MR IMAGING Diagnoses Abnormal results of liver function studies Procedures MRI 3D POST PROCESSING 3D RENDERING W/INTERP&POSTPROC DIFF WORK STATION Siva Rome MD [address] [place] [address] Mr Imaging [place] [address] Referral ID Status Reason Start Date Expiration Date Visits Requested Visits Authorized [id number] Pending Review Auto-Generat ed Referral 11/18/2023 12/17/2024 1 1 * MRI/CT (Routine) - Pending Review Specialty Diagnoses / Procedures Referred By Contac t Referred To Contact MR IMAGING Diagnoses Abnormal results of liver function studies Procedures MRI PANC/EPIFANIO WO/W IVCON MRI ABDOMEN W/O & W/CONTRAST MATERIAL Siva Rome MD [address] [place] [address] Mr Imaging [place] [address] Referral ID Status Reason Start Date Expiration Date Visits Requested Visits Authorized [id number] Pending Review Auto-Generat ed Referral 11/18/2023 12/17/2024 1 1 [facility] for referral (narrative)* Outpatient Procedure (Routine) - Authorized Specialty Diagnoses / Procedures Referred By Aurelia t Referred To Contact [facility] Diagnoses PSC (primary sclerosing cholangitis) Procedures COLONOSCOPY DIAGNOSTIC COLONOSCOPY FLX DX W/COLLJ SPEC WHEN PFRMD Siva Rome MD [address] [place] [address] [place] [address] Referral ID Status Reason Start Date Expiration Date Visits Requested Visits Authorized [id number] Authorized Auto-Generat ed Referral 01/25/2024 10/02/2024 1 1 [facility] for referral (narrative)* Outpatient Procedure (Routine) - Closed Specialty Diagnoses / Procedures Referred By Contac t Referred To Contact [facility] Diagnoses PSC (primary sclerosing cholangitis) Procedures COLONOSCOPY DIAGNOSTIC COLONOSCOPY FLX DX W/COLLJ SPEC WHEN PFRMD Siva Rome MD [address] [place] [address] [address] Referral ID Status Reason Start Date Expiration Date V isits Requested Visits Authorized [id number] Closed Auto-Generate d Referral 01/25/2024 10/02/2024 1 1 [facility] for referral (narrative)* Diagnostic Procedure Only (Routine) - Closed Specialty Diagnoses / Procedures Referred By Contac t Referred To Contact US IMAGING Diagnoses Abnormal results of liver function studies Procedures US ABD RIGHT UPPER QUADRANT US ABDOMINAL REAL TIME W/IMAGE LIMITED Siva Rome MD [address] [place] [address] Us Imaging [id number] Referral ID Status Reason Start Date Expiration Date V isits Requested Visits Authorized [id number] Closed Auto-Generate d Referral 11/18/2023 12/17/2024 1 1 [facility] for referral (narrative)* Outpatient Procedure (Routine) - Pending Review Specialty Diagnoses / Procedures Referred By Contac t Referred To Contact [facility] Diagnoses 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) Postprandial bloating Procedures EGD DIAGNOSTIC EGD DIAGNOSTIC ESOPHAGOGASTRODUODENOS COPY TRANSORAL DIAGNOSTIC Codi Dunn PA-C [address] [place] [address] [address] Referral ID Status Reason Start Date Expiration Date Visits Requested Visits Authorized [id number] Pending Review Auto-Generat ed Referral 06/21/2024 06/21/2025 1 1 * Outpatient Procedure (Routine) - Pending Review Specialty Diagnoses / Procedures Referred By Contac t Referred To Contact [facility] Diagnoses 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) Procedures COLONOSCOPY DIAGNOSTIC COLONOSCOPY DIAGNOSTIC COLONOSCOPY FLX DX W/COLLJ SPEC WHEN Codi Pires PA-C [address] [place] [address] [facility] [address] [address] Referral ID Status Reason Start Date Expiration Date Visits Requested Visits Authorized [id number] Pending Review Auto-Generat ed Referral 06/21/2024 06/21/2025 1 1 * Consult, Test, Treat (Routine) - Pending Review Specialty Diagnoses / Procedures Referred By Contac t Referred To Contact Diagnoses Anxiety about health Procedures CONSULT TO PSYCHIATRY OFFICE/OUTPATIENT [facility] 60 MINUTES Codi Dunn PA-C [address] [place] [address] Referral ID Status Reason Start Date Expiration Date Visits Requested Visits Authorized [id number] Pending Review PCP Requested Referral 06/21/2024 06/21/2025 1 1 [facility] for visit Narrative* Outpatient Procedure (Routine) - Closed Specialty Diagnoses / Procedures Referred By Contac t Referred To Contact [facility] Diagnoses PSC (primary sclerosing cholangitis) Procedures COLONOSCOPY DIAGNOSTIC COLONOSCOPY FLX DX W/COLLJ SPEC WHEN Siva Love MD [address] [place] [address] [facility] [address] [address] Referral ID Status Reason Start Date Expiration Date V isits Requested Visits Authorized [id number] Closed Auto-Generate d Referral 01/25/2024 10/02/2024 1 1 [facility] for visit Narrative* Diagnostic Procedure Only (Routine) - Closed Specialty Diagnoses / Procedures Referred By Contac t Referred To Contact US IMAGING Diagnoses Abnormal results of liver function studies Procedures US ABD RIGHT UPPER QUADRANT US ABDOMINAL REAL TIME W/IMAGE LIMITED Siva Rome MD [address] [phone] Us Imaging [place] [address] Referral ID Status Reason Start Date Expiration Date V isits Requested Visits Authorized [id number] Closed Auto-Generate d Referral 11/18/2023 12/17/2024 1 [facility] Procedure (Routine) - Closed Specialty Diagnoses / Procedures Referred By Contac t Referred To Contact [facility] Diagnoses 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) Procedures COLONOSCOPY DIAGNOSTIC COLONOSCOPY DIAGNOSTIC COLONOSCOPY FLX DX W/COLLJ SPEC WHEN P[facility] Codi Dunn PA-C [address] [place] [address] [facility] [place] [address] [place] [address] Referral ID Status Reason Start Date Expiration Date V isits Requested Visits Authorized [id number] Closed Auto-Generate d Referral 06/22/2024 10/02/2024 1 1 [facility] Reason for Referral Specialty Diagnoses / Procedures Referred By Contac t Referred To Contact Gastroenterology Diagnoses Ulcerative colitis with complication, unspecified location (HCC) Procedures [place] [address] [place], [place] [id number] Nathan Goodwin MD [address] [place] [id number] Referral ID Status Reason Start Date Expiration Date Visits Requested Visits Authorized [id number] Ref Not Required PCP Requested Referral 02/04/2024 02/03/2025 1 1 Specialty Diagnoses / Procedures Referred By Contac t Referred To Contact MR IMAGING Diagnoses Abnormal results of liver function studies Procedures MRI PANC/EPIFANIO WO/W IVCON MRI ABDOMEN W/O & W/CONTRAST MATERIAL Siva Rome MD [address] [phone] Mr Imaging [id number] Referral ID Status Reason Start Date Expiration Date V isits Requested Visits Authorized [id number] Closed Auto-Generate d Referral 11/22/2023 10/02/2024 1 1 Specialty Diagnoses / Procedures Referred By Contac t Referred To Contact MR IMAGING Diagnoses Cholangitis Procedures MRI PANC/EPIFANIO WO/W IVCON MRI ABDOMEN W/O & W/CONTRAST MATERIAL Siva Rome MD [address] [phone] Mr Imaging [place] [address] Referral ID Status Reason Start Date Expiration Date V isits Requested Visits Authorized [id number] Closed Auto-Generate d Referral 07/11/2024 07/11/2024 1 1 Specialty Diagnoses / Procedures Referred By Contac t Referred To Contact MR IMAGING Diagnoses PSC (primary sclerosing cholangitis) Procedures MRI 3D POST PROCESSING 3D RENDERING W/INTERP&POSTPROC DIFF WORK STATION Siva Rome MD [address] [phone] Mr [facility] [place] [address] Referral ID Status Reason Start Date Expiration Date Visits Requested Visits Authorized [id number] New Request Auto-Generat ed Referral 08/12/2025 1 1 Specialty Diagnoses / Procedures Referred By Contac t Referred To Contact MR IMAGING Diagnoses Abnormal results of liver function studies PSC (primary sclerosing cholangitis) Procedures MRI PANC/EPIFANIO WO/W IVCON MRI ABDOMEN W/O & W/CONTRAST MATERIAL Siav Rome MD [address] [phone] Mr Imaging [place] [address] Referral ID Status Reason Start Date Expiration Date Visits Requested Visits Authorized [id number] New Request Auto-Generat ed Referral 01/11/2025 08/12/2025 1 1 Summary Purpose Family History No Family History Records FoundNo Family History Records Found Advance Directives No Advanced Directives Records FoundNo Advanced Directives Records Found Additional Source Comments Source Comments (unrecognize d section and content) In the event this informatio n is protected by the Federal Confidentiality of Alcohol and Drug Abuse Patient Records regulations: The Federal rules restrict any use of the information to criminally investigate or prosecute any alcohol or drug abuse patient.[facility] the event this information is protected by the Federal Confidentiality of Alcohol and Drug Abuse Patient Records regulations: The Federal rules restrict any use of the information to criminally investigate or prosecute any alcohol or drug abuse patient.[facility] the event this information is protected by the Federal Confidentiality of Alcohol and Drug Abuse Patient Records regulations: The Federal rules restrict any use of the information to criminally investigate or prosecute any alcohol or drug abuse patient.[facility] the event this information is protected by the Federal Confidentiality of Alcohol and Drug Abuse Patient Records regulations: The Federal rules restrict any use of the information to criminally investigate or prosecute any alcohol or drug abuse patient.[facility] the event this information is protected by the Federal Confidentiality of Alcohol and Drug Abuse Patient Records regulations: The Federal rules restrict any use of the information to criminally investigate or prosecute any alcohol or drug abuse patient.[facility] the event this information is protected by the Federal Confidentiality of Alcohol and Drug Abuse Patient Records regulations: The Federal rules restrict any use of the information to criminally investigate or prosecute any alcohol or drug abuse patient.[facility] the event this information is protected by the Federal Confidentiality of Alcohol and Drug Abuse Patient Records regulations: The Federal rules restrict any use of the information to criminally investigate or prosecute any alcohol or drug abuse patient.[facility] the event this information is protected by the Federal Confidentiality of Alcohol and Drug Abuse Patient Records regulations: The Federal rules restrict any use of the information to criminally investigate or prosecute any alcohol or drug abuse patient.[facility] the event this information is protected by the Federal Confidentiality of Alcohol and Drug Abuse Patient Records regulations: The Federal rules restrict any use of the information to criminally investigate or prosecute any alcohol or drug abuse patient.[facility] the event this information is protected by the Federal Confidentiality of Alcohol and Drug Abuse Patient Records regulations: The Federal rules restrict any use of the information to criminally investigate or prosecute any alcohol or drug abuse patient.[facility] the event this information is protected by the Federal Confidentiality of Alcohol and Drug Abuse Patient Records regulations: The Federal rules restrict any use of the information to criminally investigate or prosecute any alcohol or drug abuse patient.[facility] the event this information is protected by the Federal Confidentiality of Alcohol and Drug Abuse Patient Records regulations: The Federal rules restrict any use of the information to criminally investigate or prosecute any alcohol or drug abuse patient.[facility] the event this information is protected by the Federal Confidentiality of Alcohol and Drug Abuse Patient Records regulations: The Federal rules restrict any use of the information to criminally investigate or prosecute any alcohol or drug abuse patient.[facility] the event this information is protected by the Federal Confidentiality of Alcohol and Drug Abuse Patient Records regulations: The Federal rules restrict any use of the information to criminally investigate or prosecute any alcohol or drug abuse patient.[facility] Reason for Visit (unrecogniz ed section and content) Reason Comments Hepatitis Reason Comments Liver Biopsy Reason Comments Patient Update Reason Comments Ulcerative Colitis Colon 02/02/24, MRI 12/05/23 Reason Comments Radiology MRI Specialty Diagnoses / Procedures Referred By Contac Referred To Contact MR IMAGING Diagnoses Abnormal results of liver function studies Procedures MRI PANC/EPIFANIO WO/W IVCON MRI ABDOMEN W/O & W/CONTRAST MATERIAL Siva Rome MD [address] [place] [address] Mr Imaging [place] [address] Referral ID Status Reason Start Date Expiration Date V isits Requested Visits Authorized [id number] Closed Auto-Generate d Referral 11/22/2023 10/02/2024 1 1 Reason Comments Ulcerative pancolitis Specialty Diagnoses / Procedures Referred By Contac t Referred To Contact MR IMAGING Diagnoses Cholangitis Procedures MRI PANC/EPIFANIO WO/W IVCON MRI ABDOMEN W/O & W/CONTRAST MATERIAL Siva Rome MD [address] [place] [address] [place] [address] Referral ID Status Reason Start Date Expiration Date V isits Requested Visits Authorized [id number] Closed Auto-Generate d Referral 07/11/2024 07/11/2024 1 1 Care Teams (unrecognized sec tion and content) Nuclear Medicine Chief Technologist Relationship Specialty Start Date End Date Kyra Mendoza MD [address] [facility] [address] [place] [address] PCP - General Family [facility] 06/21/24 Nuclear Medicine Chief Technologist Relationship Specialty Start Date End Date Kyra Mendoza MD [address] [facility] [address] [place] [address] PCP - General [facility] 06/21/24 Nuclear Medicine Chief Technologist Relationship Specialty Start Date End Date Kyra Mendoza MD [address] [facility] [address] [place] [address] PCP - General [facility] 06/21/24 Nuclear Medicine Chief Technologist Relationship Specialty Start Date End Date Kyra Mendoza MD [address] [facility] [address] [place] [address] PCP - General Family Medicine 06/21/24 (unrecognized sect ion and content) No Status Records FoundNo Status Records Found INFORMATION SOURCE (unrecogn ized section and content) DATE CREATED AUTHOR 07/20/2024 [facility] DATE CREATED AUTHOR AUTHOR'S ORGANIZ ATION 07/29/2024 [facility] FOR RECORDS PERTAINING TO PATIENTS WHO ARE OR HAVE BEEN ENROLLED IN A CHEMICAL DEPENDENCY/SUBSTANCEABUSE PROGRAM, SOME INFORMATION MAY BE OMITTED. This clinical summary was aggregated from multiple sources. Caution should be exercised in using it in the provision of clinical care. This summary normalizes information from multiple sources, and as a consequence, information in this document may materially change the coding, format and clinical context of patient data. In addition, data may be omitted in some cases. CLINICAL DECISIONS SHOULD BE BASED ON THE PRIMARY CLINICAL RECORDS. [facility] provides no warranty or guarantee of the accuracy or completeness of information in this document.
== END | disposition home or self-care (01) ==
PROVIDERS: PCP Family Medicine; Referring Provider Nurse Practitioner Family; Visit Provider Nurse Practitioner Family
DX: D68.59 Other primary thrombophilia (principal); Z13.220 Encounter for screening for lipoid disorders; Z83.2 Family history of diseases of the blood and blood-forming organs and certain disorders involving the immune mechanism; Z82.49 Family history of ischemic heart disease and other diseases of the circulatory system
CPT/HCPCS: 36415

== ENCOUNTER → 2024-09-14 | Outpatient (CLI) | payer BC, SELFPAY ==
[2024-09-14 13:33] LABS: Fibrinogen 217 mg/dl (203-444)
[2024-09-17 18:22] LABS: Vitamin D,25 Hydroxy 11.1 ng/mL
[2024-09-20 22:06] LABS: Copper, Serum or Plasma 81 ug/dL (63-121); VITAMIN B6 9.5 ug/L (3.4-65.2); Vitamin B1, Thiamine 83.3 nmol/L (66.5-200.0); Zinc, Plasma or Serum 81 ug/dL (44-115)
== END | disposition home or self-care (01) ==
PROVIDERS: PCP Family Medicine; Referring Provider Nurse Practitioner Family; Visit Provider Nurse Practitioner Family
DX: K51.911 Ulcerative colitis, unspecified with rectal bleeding (principal); K75.4 Autoimmune hepatitis; F41.9 Anxiety disorder, unspecified; R53.83 Other fatigue; K90.89 Other intestinal malabsorption; D68.59 Other primary thrombophilia
CPT/HCPCS: 36415; 82306; 82525; 83735; 84207; 84425; 84630; 85384

== ENCOUNTER → 2024-11-14 | Outpatient (CLI) | payer SELFPAY ==
[2024-11-18 18:07] LABS: G6PD Quant Test 266 (156-397); Red Blood Cell Count Test/G6PD 5.55 x10E6/uL (4.14-5.80)
== END | disposition home or self-care (01) ==
LOC: LABSPEC 12:44
PROVIDERS: PCP Family Medicine; Referring Provider Nurse Practitioner Family; Visit Provider Nurse Practitioner Family
DX: K75.4 Autoimmune hepatitis (principal); A44.0 Systemic bartonellosis
CPT/HCPCS: 82955

== ENCOUNTER → 2025-05-14 | Outpatient (CLI) | payer SELFPAY ==
[2025-05-14 16:53] LABS: Hematocrit 45.5 % (40-54); Hemoglobin 15.5 g/dL (13.0-16.5); Immature Granulocytes Count 0.000 X10^3/uL (0.0-0.0); Mean Corp Hgb Conc 34.1 g/dL (32-36); Mean Corpuscular Volume 91.0 fL (80-94); Mean Platelet Vol. 10.8 fl (6.2-12.0); NRBC Flagged by Analyzer 0 % (0-5); Platelet Count 172 K/mm3 (150-450); RBC Distribution Width CV 12.1 % (11.6-14.6); RBC Distribution Width SD 40.5 fl (35.1-43.9); Red Blood Count 5.00 M/mm3 (4.6-6.2); White Blood Count 4.7 K/mm3 (4.4-11.0)
[2025-05-14 17:44] LABS: AST(SGOT) 48 U/L (<=37); Alanine Aminotransfer ALT/SGPT 73 U/L (<=46); Albumin, Serum 4.8 g/dL (3.5-5.0); Alkaline Phosphatase 86 U/L (40-129); Bilirubin, Direct 0.39 mg/dL (0.00-0.30); Globulin 2.3 g/dL (2.2-4.2); Magnesium 1.9 mg/dL (1.5-2.2)
[2025-05-14 17:48] LABS: Vitamin B12 1397 pg/mL (180-914); Vitamin D,25 Hydroxy 34.6 ng/mL (30-100)
== END | disposition home or self-care (01) ==
PROVIDERS: PCP Family Medicine; Referring Provider Nurse Practitioner Family; Visit Provider Nurse Practitioner Family
DX: F41.9 Anxiety disorder, unspecified (principal); K51.911 Ulcerative colitis, unspecified with rectal bleeding; K75.4 Autoimmune hepatitis; A44.0 Systemic bartonellosis
CPT/HCPCS: 80076; 82306; 82607; 83735; 85025